=== PATIENT | female | born 1930 | race Caucasian/White ===

== ENCOUNTER 2016-07-02 08:45 | Day surgery (SDC) | payer MEDICARE ==
[2016-07-02 10:03] LABS: HEMOGLOBIN 11.6 g/dL (12.0-15.5); HGB HCT DIFFERENCE -0.2; MEAN CORPUSCULAR HEMOGLOBIN 31.3 pg (27.0-33.4); MEAN CORPUSCULAR HGB CONC 33.1 g/dL (32.0-36.0); MEAN CORPUSCULAR VOLUME 95 fl (80-97); RED CELL DISTRIBUTION WIDTH 14.2 % (11.5-14.0); WHITE BLOOD COUNT 5.7 10^3/uL (4.0-10.5)
[2016-07-02 10:11] LABS: PARTIAL THROMBOPLASTIN TIME 43.7 SEC (23.5-35.8)
[2016-07-02 10:15] LABS: BLOOD UREA NITROGEN 109 mg/dL (7-20); CALCIUM 9.5 mg/dL (8.4-10.2); CARBON DIOXIDE 20 mmol/L (22-30); CHLORIDE 98 mmol/L (98-107); CREATININE RESULT 7.04 mg/dL (0.52-1.25); GLUCOSE 102 mg/dL (75-110); SODIUM 140.8 mmol/L (137-145)
[2016-07-02 10:23] LABS: ANION GAP 23 (5-19)
[2016-07-02] MEDS ORDERED: LIDOCAINE 0.5% INJ-PF (5 MG/ML) 50 ML SDV ONE (10:40)
[2016-07-02] MEDS ORDERED: MIDAZOLAM 2 MG/2 ML INJ ONE (10:45)
[2016-07-02] MEDS ORDERED: HEPARIN SOD (PORCINE) 5,000 UNIT/ML 1 ML SYRINGE ONE (10:45)
[2016-07-02] MEDS ORDERED: FENTANYL CITRATE INJ/PF 100 MCG/2 ML AMPUL ONE (10:45)
--- NOTE | 2016-07-02 13:52 | PDOC DISCHARGE SUMMARY ---
Discharge Summary (SDC) - Discharge Final Diagnosis: #1 malfunctioning AV fistula left forearm #2 end-stage renal disease on hemodialysis. #3 atrial fibrillation, chronic. #4 COPD. #5 hypertension.. Date of Surgery: 07/02/16 Discharge Date: 07/02/16 Condition: Poor Forms: ASU Anesthesia D/C Instruction, Discharge POC-Surgical Service Treatment or Instructions: #1 discharge patient home after achieving ASU criteria. #2 continue medications per medication reconciliation sheet. #3 follow-up in office by appointment in about 1 week, call for appointment. #4 dressing to be left on until dialysis. #5 continue scheduled hemodialysis. h. #6 may shower starting in 48 hours. Referrals: ELISA NEAL MD [ACTIVE STAFF] - 07/09/16 1:15 pm Respiratory Treatments at Home: Deep Breathing/Coughing Discharge Activity: Activity As Tolerated, Balance Activity w/Rest, No Driving, No Lifting/Push/Pulling, Slowly Increase Activity, Walk Frequently Home Care Assistance: Provided by Family Activities Provided by Home Health Agency: ADL's Adaptive Devices on Discharge: Rolling Walker Report the Following to Your Physician Immediately: Shortness of Breath, Nausea , Vomiting, Increase in Pain, Fever over 101 Degrees, Unusual Bleeding, Redness , Swelling, Warmth, Increased Soreness, Large Clots, Numbness, Tingling Sensation, Weight Gain 3-5lbs a week, Wheezing
[2016-07-02 14:06] VITALS: BP 131/52
--- NOTE | 2016-07-10 13:37 | Operative Report ---
Operative Report DATE OF SURGERY: 07/02/16 PREOPERATIVE DIAGNOSIS: #1 malfunctioning AV fistula, cephalic to radial, left arm. #2 end-stage renal disease on hemodialysis. #3 multiple comorbidities. POSTOPERATIVE DIAGNOSIS: #1 malfunctioning AV fistula, cephalic to radial, left arm. #2 end-stage renal disease on hemodialysis. #3 multiple comorbidities. OPERATION: #1 ultrasound directed access into the left forearm AV fistula. #2 angioplasty. #3 angiogram and interpretation. SURGEON: ELISA [place] [employer] OPERATOR: none ANESTHESIA: Moderate Sedation TISSUE REMOVED OR ALTERED: Not applicable. COMPLICATIONS: None ESTIMATED BLOOD LOSS: 2 mL. INTRAOPERATIVE FINDINGS: Upper well-founded left forearm transposed cephalic vein to radial artery fistula. Relatively firm in the first 6 cm. A large hematoma with bruising noted in the upper forearm. Cephalad to that the cephalic vein for about 4 cm around the elbow is dilated but soft with a mild bruit. The graphically there was a stenosis noted about 70% of the lumen at about 11 cm. This was almost completely resolved by angioplasty. A relatively narrow area of fistula for access 6 cm initially and then the area of the elbow is available for use. The hope is to retrieve the area with hematoma as a hematoma resolves. PROCEDURE: PROCEDURE: After verifying the procedure and having obtained informed consent, the patient's left arm was prepared with Chlorhexidine and draped out with sterile linen. Local anesthesia infiltrated. Percutaneous access into the fistula ,[ antegrade], obtained about [2 cm] from the arteriovenous anastomosis using a micro puncture needle followed by micro puncture wire and then a micro puncture catheter. Angiogram demonstrated the aforementioned findings. Angioplasty was elected. A 0.035 [place] wire was inserted, and over this, a 7 Italian short introducer was placed, this was followed by a [7-mm ] angioplasty balloon . Angioplasty was serially done from the upper fistula down to the introducer. Inflating up to 14 atmospheres for a minute at a time.]. Completion angiogram demonstrated improved flow and appearance of fistula. The instrumentation was now withdrawn over pressure for 10 minutes. Dressings applied, procedure concluded. DICTATING PHYSICIAN: ELISA NEAL M.D. cc: ELISA NEAL M.D. ([id number]) >>
== END 2016-07-02 14:00 | disposition home or self-care (01) ==
LOC: CCL 08:45
PROVIDERS: ATTEND Surgery
PROC: 057F3DZ Dilation of Left Cephalic Vein with Intraluminal Device, Percutaneous Approach (ICD-10-PCS; principal; 2016-07-02)
DX: T82.858A Stenosis of other vascular prosthetic devices, implants and grafts, initial encounter (principal); Y83.2 Surgical operation with anastomosis, bypass or graft as the cause of abnormal reaction of the patient, or of later complication, without mention of misadventure at the time of the procedure; I12.0 Hypertensive chronic kidney disease with stage 5 chronic kidney disease or end stage renal disease; N18.6 End stage renal disease; Z99.2 Dependence on renal dialysis; J44.9 Chronic obstructive pulmonary disease, unspecified; I48.2 Chronic atrial fibrillation; Z79.01 Long term (current) use of anticoagulants
CPT/HCPCS: 36415; 85027; 85610; 85730; 80048; 36902; 76937; 71010; C1752; C1725; Q9967; C1769; J2250; J3010; J3490; J1644; 36901

== ENCOUNTER → 2016-11-24 | Outpatient (CLI) | payer MEDICARE ==
--- NOTE | 2016-11-25 00:20 | EKG REPORT ---
SEVERITY:- ABNORMAL ECG - ATRIAL FIBRILLATION : Confirmed by: Vita Gaines 25-Nov-2016 00:19:14
== END ==
LOC: OD 09:36
PROVIDERS: ATTEND Internal Medicine Nephrology
DX: R00.1 Bradycardia, unspecified (principal)
CPT/HCPCS: 93005; 93010

== ENCOUNTER 2016-12-15 08:44 | Day surgery (SDC) | payer MEDICARE ==
[2016-12-15] MEDS ORDERED: HEPARIN SOD (PORCINE) 1,000 UNIT/ML 10 ML VIAL ONE (09:45)
[2016-12-15] MEDS ORDERED: LIDOCAINE 0.5% INJ-PF (5 MG/ML) 50 ML SDV ONE (09:46)
--- NOTE | 2016-12-15 09:54 | PDOC H&P ---
General Chief Complaint: Patient arteriovenous fistula has been found to be malfunctional. - Current Medications/Allergies Home Medications: Amlodipine Besylate 5 mg PO Q12H PRN 07/17/15 Levothyroxine Sodium 50 mcg PO DAILY 07/17/15 Omeprazole 20 mg PO BID 07/17/15 Warfarin Sodium 5 mg PO DAILY 07/17/15 Acetaminophen [Tylenol Arthritis 650 mg Tablet] 650 mg PO QPM PRN 09/14/15 Fluticasone Propionate [Flonase Nasal [place] 50 Mcg/[place] 16 gm] 1 spray NASL Q12 09/14/15 Hydralazine HCl 25 mg PO BID PRN 09/14/15 B Complex & C No.20/Folic Acid [Renal Caps Softgel] mg PO DAILY 12/15/16 Benzonatate 100 mg PO PRN PRN 12/15/16 Ciprofloxacin HCl [Cipro] 250 mg PO DAILY 12/15/16 Guaifenesin [Mucinex] 1,200 mg PO DAILY 12/15/16 Magnesium 400 mg PO BID 12/15/16 Allergies/Adverse Reactions: pravastatin [Pravastatin] Allergy (Verified 12/15/16 09:22) NSAIDS (Non-Steroidal Anti-Inflamma [Nsaids] Adverse Reaction (Verified 09:22) Past Medical History Cardiac Medical History: Reports: Atrial Fibrillation, Congestive Heart Failure , Hyperlipidema, Hypertension Denies: Coronary Artery Disease, Myocardial Infarction Pulmonary Medical History: Reports: Bronchitis, Pneumonia - hx of, Respiratory Failure, Sleep Apnea Denies: Asthma, Chronic Obstructive Pulmonary Disease (COPD), Tuberculosis Neurological Medical History: Denies: Seizures Endocrine Medical History: Reports: Hypothyroidism GI Medical History: Reports: Gastroesophageal Reflux Disease Musculoskeltal Medical History: Reports: Arthritis Psychiatric Medical History: Denies: Dementia, Depression Hematology: Denies: Anemia Past Surgical History Past Surgical History: Reports: Hysterectomy Denies: Pacemaker Family History Family History: Hypertension Parental Family History Reviewed: No Children Family History Reviewed: No Sibling(s) Family History Reviewed.: No Social History Smoking Status: Former Smoker Frequency of Alcohol Use: None Hx Recreational Drug Use: No Drugs: None Hx Prescription Drug Abuse: No Physical Exam Vital Signs: Temp Pulse Resp BP Pulse Ox 97.6 F 60 16 122/46 L 95 12/15/16 09:08 12/15/16 09:08 12/15/16 09:08 12/15/16 09:08 12/15/16 09:08 Intake & Output 12/14/16 12/15/16 12/16/16 06:59 06:59 06:59 Weight 79.38 kg Additional comments: Constitutional: Well-developed well-nourished lady, mildly increased body mass in. No apparent acute distress. Eyes: Mucous membranes pink and moist, pupils equal and reactive to light. Conjunctiva normal. ENT: Hearing grossly normal. External pinna normal to inspection. Teeth intact. Tongue normal to inspection. Cardiac: Heart sounds 1 and 2 normal Respiratory breath sounds are present bilaterally, normal. Normal respiratory effort. Skin: Ulceration slight irritation, chronic in the left index finger and forearm. Psychiatric: Judgment, memory, insight seem normal. Mood is pleasant and appropriate. Extremities: Upper extremities show normal range of movement. Pulses present noted to the radial arteries. Capillary refill normal. No cyanosis noted. No muscle wasting noted. Functional left forearm AV fistula. Irritation and ulceration is noted. Distant from fistula. Impression/Plan Impression: 1 malfunctioning AV fistula left radiocephalic. 2. End-stage renal disease on hemodialysis. 3. COPD. 4. Atrial fibrillation. 5. Hypertension. Plan: Admitted for AV fistula angiogram and possible angioplasty. The goal is prolonged fistula use
[2016-12-15 10:25] LABS: HEMATOCRIT 35.3 % (36.0-47.0); HEMOGLOBIN 11.7 g/dL (12.0-15.5); HGB HCT DIFFERENCE -0.2; MEAN CORPUSCULAR HEMOGLOBIN 31.3 pg (27.0-33.4); MEAN CORPUSCULAR HGB CONC 33.1 g/dL (32.0-36.0); MEAN CORPUSCULAR VOLUME 95 fl (80-97); RED BLOOD COUNT 3.72 10^6/uL (3.72-5.28); RED CELL DISTRIBUTION WIDTH 14.1 % (11.5-14.0); WHITE BLOOD COUNT 7.3 10^3/uL (4.0-10.5)
[2016-12-15 10:31] LABS: PROTHROMBIN TIME 22.5 SEC (11.4-15.4)
[2016-12-15 10:35] LABS: PARTIAL THROMBOPLASTIN TIME 37.8 SEC (23.5-35.8)
[2016-12-15 10:45] LABS: ANION GAP 18 (5-19); BLOOD UREA NITROGEN 72 mg/dL (7-20); CALCIUM 9.5 mg/dL (8.4-10.2); CARBON DIOXIDE 24 mmol/L (22-30); CHLORIDE 94 mmol/L (98-107); CREATININE RESULT 6.44 mg/dL (0.52-1.25); GLUCOSE 102 mg/dL (75-110); POTASSIUM 5.5 mmol/L (3.6-5.0); SODIUM 136.2 mmol/L (137-145)
[2016-12-15] MEDS ORDERED: MIDAZOLAM 2 MG/2 ML INJ ONE (11:18)
[2016-12-15] MEDS ORDERED: PROPOFOL INJ 200 MG/20 ML VIAL IV ONE (11:19)
[2016-12-15] MEDS ORDERED: EPINEPHRINE INJ/PF 1 MG/1 ML AMPULE ONE (12:05)
[2016-12-15] MEDS ORDERED: EPHEDRINE SULFATE INJ 50 MG/1 ML AMPULE ONE (12:07)
--- NOTE | 2016-12-15 12:20 | PDOC DISCHARGE SUMMARY ---
Discharge Summary (SDC) - Discharge Final Diagnosis: #1 malfunctioning arteriovenous fistula, left radiocephalic. 2. End-stage renal disease on hemodialysis. 3. COPD. 4. Atrial fibrillation. 5. Hypertension. Date of Surgery: 12/15/16 Discharge Date: 12/15/16 Condition: Fair Treatment or Instructions: Discharge home [after recovery per ASU criteria]. Diet , [renal],as tolerated, when fully awake advance as tolerated. Activities within moderation encouraged. Follow up in my office by appointment in about [1 week. Call for appointment. Leave wounds [covered], [keep clean and dry, until Hemodialysis Hold of on school/work [until evaluation in office]. May shower [in 48 hrs], [try to keep operated area as dry as possible]. Continue medications per medication reconciliation. Discharge Diet: Other (Comments) - Renal Respiratory Treatments at Home: Deep Breathing/Coughing Discharge Activity: Activity As Tolerated Report the Following to Your Physician Immediately: Unusual Bleeding
--- NOTE | 2016-12-15 12:25 | Operative Report ---
Operative Report DATE OF SURGERY: 12/15/16 PREOPERATIVE DIAGNOSIS: #1 malfunctioning arteriovenous fistula, left radiocephalic. 2. End-stage renal disease on hemodialysis. 3. COPD. 4. Atrial fibrillation. 5. Hypertension. POSTOPERATIVE DIAGNOSIS: #1 malfunctioning arteriovenous fistula, left radiocephalic. 2. End-stage renal disease on hemodialysis. 3. COPD. 4. Atrial fibrillation. 5. Hypertension. OPERATION: 1. Needle access into arteriovenous fistula. 2. Angioplasty. 3. Angiogram interpretation. SURGEON: ELISA [place] [employer] TECHNICIAN: None ANESTHESIA: LMAC TISSUE REMOVED OR ALTERED: Not applicable COMPLICATIONS: None ESTIMATED BLOOD LOSS: 2 mL. INTRAOPERATIVE FINDINGS: Of a established left forearm arteriovenous fistula. The anastomosis somewhat high at about 5 cm from the wrist. Able to get into the distal limb of the radial artery, not into the proximal. Good flow noted in the distal radial artery. Stenosis appreciated in the first 3 cm. Estimated to be about 60% of the adjacent lumen. Successfully dilated up to 4 mm improved fistula function seems evident in the briskness of the flow through the fistula. The outflow is robust through both the cephalic and brachial systems. PROCEDURE: PROCEDURE: After verifying the procedure and having obtained informed consent, the patient's left arm and forearm were prepared with Chlorhexidine and draped out with sterile linen. Local anesthesia infiltrated. Percutaneous access into the fistula ,[retrograde], obtained about [20 cm] from the arteriovenous anastomosis using a micro puncture needle followed by micro puncture wire and then a micro puncture catheter. This was done on ultrasound guidance using real-time access into the vein. Ultrasound was also used to size the vein. Angiogram demonstrated the aforementioned findings. Angioplasty was elected. A 0.035 [place] wire was inserted, and over this, a 6 Turkish short introducer was placed, this was followed by a [place] catheter. Access into the [place] radial artery obtained using a [place] catheter and a pocket device. Angiogram is noted. A [4] angioplasty balloon . Angioplasty was now done at the distal radial artery just before the anastomosis and over the anastomotic and perianastomotic segment. This was done very carefully and in the up to 10 anirudh sustained for 2 minutes. Angiogram demonstrated successful outcome. Completion angiogram demonstrated [satisfactory result]. The instrumentation was now withdrawn pressure for 3 minutes. Dressings applied, procedure concluded. DICTATING PHYSICIAN: ELISA NEAL M.D. cc: ELISA NEAL M.D. ([id number]) >>
[2016-12-15] MEDS ORDERED: PHENYLEPHRINE HCL INJ/PF 10 MG/1 ML SDV ONE (13:27)
[2016-12-15] MEDS ORDERED: GLYCOPYRROLATE INJ 0.4 MG/2 ML VIAL ONE (13:27)
[2016-12-15] MEDS ORDERED: ONDANSETRON HCL INJ/PF 4 MG/2 ML SDV ONE (13:27)
[2016-12-15] MEDS ORDERED: METOCLOPRAMIDE HCL INJ/PF 10 MG/2 ML SDV ONE (13:27)
--- NOTE | 2016-12-15 14:46 | RADIOLOGY REPORT (SQ) ---
EXAM DESCRIPTION: NO CHG FLUORO; HUMERUS LEFT COMPLETED DATE/TIME: 12/15/2016 2:37 pm REASON FOR STUDY: T82.858A T82.858A STENOSIS OF OTHER VASCULAR PROSTH DEV/GRFT, INIT Z79.01 LONG T ERM (CURRENT) USE OF ANTICOAGULANTS COMPARISON: None. FLUOROSCOPY TIME: 2.4 minutes 8 images saved to PACS. TECHNIQUE: Intra-operative images acquired during surgical procedure to evaluate progress. NUMBER OF IMAGES: 8 LIMITATIONS: None. FINDINGS: Angioplasty intervention upper extremity dialysis graft. IMPRESSION: IMAGE(S) OBTAINED DURING PROCEDURE. COMMENT: Quality ID [id number]: Final reports for procedures using fluoroscopy that document radiation exp osure indices, or exposure time and number of fluorographic images (if radiation exposure indices are not available) Please consult full operative report of the attending physician for description of the procedure. TECHNICAL DOCUMENTATION: JOB ID: [id number] [employer]- All Rights Reserved
--- NOTE | 2016-12-15 14:46 | RADIOLOGY REPORT (SQ) ---
EXAM DESCRIPTION: NO CHG FLUORO; HUMERUS LEFT COMPLETED DATE/TIME: 12/15/2016 2:37 pm REASON FOR STUDY: T82.858A T82.858A STENOSIS OF OTHER VASCULAR PROSTH DEV/GRFT, INIT Z79.01 LONG T ERM (CURRENT) USE OF ANTICOAGULANTS COMPARISON: None. FLUOROSCOPY TIME: 2.4 minutes 8 images saved to PACS. TECHNIQUE: Intra-operative images acquired during surgical procedure to evaluate progress. NUMBER OF IMAGES: 8 LIMITATIONS: None. FINDINGS: Angioplasty intervention upper extremity dialysis graft. IMPRESSION: IMAGE(S) OBTAINED DURING PROCEDURE. COMMENT: Quality ID [id number]: Final reports for procedures using fluoroscopy that document radiation exp osure indices, or exposure time and number of fluorographic images (if radiation exposure indices are not available) Please consult full operative report of the attending physician for description of the procedure. TECHNICAL DOCUMENTATION: JOB ID: [id number] [employer]- All Rights Reserved
[2016-12-15 15:19] VITALS: BP 132/56
== END 2016-12-15 14:25 | disposition home or self-care (01) ==
LOC: OROUT 08:44
PROVIDERS: ATTEND Surgery
PROC: 057F3DZ Dilation of Left Cephalic Vein with Intraluminal Device, Percutaneous Approach (ICD-10-PCS; principal; 2016-12-15 11:15)
DX: T82.858A Stenosis of other vascular prosthetic devices, implants and grafts, initial encounter (principal); Y83.2 Surgical operation with anastomosis, bypass or graft as the cause of abnormal reaction of the patient, or of later complication, without mention of misadventure at the time of the procedure; I13.2 Hypertensive heart and chronic kidney disease with heart failure and with stage 5 chronic kidney disease, or end stage renal disease; I50.9 Heart failure, unspecified; N18.6 End stage renal disease; Z99.2 Dependence on renal dialysis; I48.91 Unspecified atrial fibrillation; J44.9 Chronic obstructive pulmonary disease, unspecified; Z79.01 Long term (current) use of anticoagulants; Z79.899 Other long term (current) drug therapy; Z88.8 Allergy status to other drugs, medicaments and biological substances; Z88.6 Allergy status to analgesic agent; E78.5 Hyperlipidemia, unspecified; G47.30 Sleep apnea, unspecified; Z87.01 Personal history of pneumonia (recurrent); E03.9 Hypothyroidism, unspecified; M19.90 Unspecified osteoarthritis, unspecified site; K21.9 Gastro-esophageal reflux disease without esophagitis; Z87.891 Personal history of nicotine dependence
CPT/HCPCS: 36415; 85027; 85610; 85730; 80048; 73060; 36902; C1752; C1887; Q9967; C1769; J2250; J1644 ×2; J3490; J2765; J2370; J2405; J2704; 01844; J0171

== ENCOUNTER 2018-04-05 16:07 | Observation (INO) | payer MEDICARE ==
[2018-04-05] MEDS ORDERED: SUCRALFATE 1 GM TABLET PO ONE (17:28)
[2018-04-05] MEDS ORDERED: FAMOTIDINE 20 MG TABLET PO ONE (17:28)
[2018-04-05] MEDS ORDERED: MAG HYDROX/AL HYDROX/SIMETH SUSP 30 ML UDCUP PO ONE (17:28)
--- NOTE | 2018-04-05 17:33 | ER Document Report ---
ED General - General Chief Complaint: Breathing Difficulty Stated Complaint: RESPIRATORY DISTRESS Time Seen by Provider: 04/05/18 16:57 Mode of Arrival: Medic Information source: Patient TRAVEL OUTSIDE OF THE [place] IN LAST 30 DAYS: No - HPI Notes: Patient is a 88-year-old female history of atrial fibrillation, COPD, CHF, hypertension, dialysis every Thursday//Thursday, home CPAP, ex-smoker who presents to the emergency department with report that she had a echocardiogram done earlier today with Dr. Barnes and she was leaning on her side and in uncomfortable positions. The patient reports increased belching she has had for the last few days related to cutting back on her omeprazole as she was running out. She reports that today at 1300 she got up and noticed some chest discomfort and some transient dyspnea that occurred with a slight radiation to the right side of the neck. The patient reports no nausea or vomiting, but she does report some relief with belching. The patient denies any fever or chills or cough or congestion or constipation or diarrhea or dysuria. Patient was given nitro in route by EMS and aspirin. She denied any significant change with the nitroglycerin. Patient's cyber ops planner is Dr. Ferreira. - Related Data Allergies/Adverse Reactions: pravastatin [Pravastatin] Allergy (Verified 04/05/18 16:27) NSAIDS (Non-Steroidal Anti-Inflamma [Nsaids] Adverse Reaction (Verified 16:27) Past Medical History - General Information source: Patient - Social History Smoking Status: Never Smoker Frequency of alcohol use: Rare Drug Abuse: None Lives with: Family Family History: Hypertension Patient has suicidal ideation: No Patient has homicidal ideation: No - Past Medical History Cardiac Medical History: Reports: Hx Atrial Fibrillation, Hx Congestive Heart Failure, Hx Hypercholesterolemia, Hx Hypertension Denies: Hx Coronary Artery Disease, Hx Heart Attack Pulmonary Medical History: Reports: Hx Bronchitis, Hx Pneumonia - hx of, Hx Respiratory Failure, Hx Sleep Apnea Denies: Hx Asthma, Hx COPD, Hx Tuberculosis Neurological Medical History: Denies: Hx Cerebrovascular Accident, Hx Seizures Endocrine Medical History: Reports: Hx Hypothyroidism Renal/ Medical History: Reports: Hx End Stage Renal Disease, Hx Renal Insufficiency. Denies: Hx Peritoneal Dialysis GI Medical History: Reports: Hx Gastroesophageal Reflux Disease Musculoskeletal Medical History: Reports Hx Arthritis, Denies Hx Multiple Sclerosis Psychiatric Medical History: Denies: Hx Dementia, Hx Depression Past Surgical History: Reports: Hx Hysterectomy. Denies: Hx Pacemaker - Immunizations Hx Diphtheria, Pertussis, Tetanus Vaccination: Yes Hx Pneumococcal Vaccination: 08/03/15 Review of Systems - Review of Systems -: Yes All other systems reviewed and negative Physical Exam - Vital signs Vitals: Temp Pulse Resp BP Pulse Ox 97.4 F 74 20 136/52 H 90 L 04/05/18 16:36 04/05/18 16:36 04/05/18 16:36 04/05/18 16:36 04/05/18 16:36 - Notes Notes: PHYSICAL EXAMINATION: GENERAL: Well-appearing, well-nourished and in no acute distress. HEAD: Atraumatic, normocephalic. EYES: Pupils equal round and reactive to light, extraocular movements intact, conjunctiva are normal. ENT: Nares patent, oropharynx clear without exudates. Moist mucous membranes. NECK: Normal range of motion, supple without lymphadenopathy. No gross JVD LUNGS: Breath sounds coarse to auscultation bilaterally and equal. No wheezes rales or rhonchi. HEART: Regular rate with murmur 1/6 and irregular rhythm consistent with history of atrial fibrillation. ABDOMEN: Soft, nontender, nondistended abdomen. No guarding, no rebound. No masses appreciated. Female : deferred Musculoskeletal: Normal range of motion. No cyanosis. 1+ bilateral lower extremity edema. NEUROLOGICAL: Cranial nerves grossly intact. Normal speech, normal gait. Normal sensory, motor exams PSYCH: Normal mood, normal affect. SKIN: Warm, Dry, normal turgor, no rashes or lesions noted. Patient has a AV shunt in the left forearm. She has a recent surgical scar with sutures in place from a skin cancer removed adjacent to the AV shunt. There is no evidence for infection nor erythema. Good palpable pulsation on the shunt. Distally, neurovascularly intact. Course - Re-evaluation Re-evalutation: 04/05/18 22:24 Patient remained in atrial fibrillation with stable vital signs and a stable pulse rate. Patient was given Carafate, Maalox, and Pepcid with complete relief of her belching and sensation of chest pain. Chest x-ray showed no gross CHF. Patient's lab studies were consistent with chronic renal failure without any acute worsening. Initial troponin was 0.033 with repeat troponin 3 hours later of 0.55. Patient was appropriately anticoagulated on Coumadin with INR of 2.1. 04/05/18 22:26 Discussion was undertaken with the patient and her family regarding the elevated troponin and the possibility of her having an acute cardiac event. Discussion was undertaken with Dr. Maldonado who agreed to see the patient further for possible admission. 04/05/18 22:26 - Vital Signs Vital signs: Temp Pulse Resp BP Pulse Ox 97.4 F 74 18 134/50 H 92 04/05/18 16:36 04/05/18 16:36 04/05/18 19:01 04/05/18 19:01 04/05/18 19:01 - Laboratory Result Diagrams: 04/05/18 16:00 04/05/18 16:00 Laboratory results interpreted by me: 04/05/18 04/05/18 04/05/18 16:00 16:00 16:00 RBC 3.31 L Hgb 10.4 L Hct 31.3 L Seg Neutrophils % 79.6 H Lymphocytes % 12.4 L PT 25.1 H Carbon Dioxide 20 L Anion Gap 23 H BUN 50 H Creatinine 6.98 H Est GFR ( Amer) 7 L Est GFR (Non-Af Amer) 6 L Calcium 10.5 H Total Bilirubin 1.5 H Direct Bilirubin 1.4 H - EKG Interpretation by Me Additional EKG results interpreted by me: 04/05/18 17:32 EKG as interpreted by me showed atrial fibrillation with controlled ventricular response rate of 68. There was one PVC noted in addition. There was no gross evidence for acute [place] or ischemia appreciated. There was no significant change as compared to previous EKG from 11/24/16. Critical Care Note - Critical Care Note Total time excluding time spent on procedures (mins): 43 Discharge - Discharge Clinical Impression: Elevated troponin Chest pain Qualifiers: Chest pain type: other chest pain Qualified Code(s): R07.89 - Other chest pain Renal failure, chronic Qualifiers: Chronic kidney disease stage: stage 4 (severe) Qualified Code(s): N18.4 - Chronic kidney disease, stage 4 (severe) Atrial fibrillation Qualifiers: Atrial fibrillation type: chronic Qualified Code(s): I48.2 - Chronic atrial fibrillation Condition: Stable Disposition: ADMITTED INPATIENT Admitting Provider: Hospitalist
--- NOTE | 2018-04-05 17:38 | RADIOLOGY REPORT (SQ) ---
EXAM DESCRIPTION: CHEST SINGLE VIEW COMPLETED DATE/TIME: 04/05/2018 5:09 pm REASON FOR STUDY: dyspnea COMPARISON: 12/31/2015. EXAM PARAMETERS: NUMBER OF VIEWS: One view. TECHNIQUE: Single frontal radiographic view of the chest acquired. RADIATION DOSE: NA LIMITATIONS: None. FINDINGS: LUNGS AND PLEURA: Stable mild chronic scarring. No focal infiltrates, masses or pneumotho rax. No pleural effusion. MEDIASTINUM AND HILAR STRUCTURES: No masses. Contour normal. HEART AND VASCULAR STRUCTURES: Heart upper limits of normal in size. Normal vasculature. BONES: No acute findings. Degenerative changes in both shoulders, right greater than left. HARDWARE: None in the chest. OTHER: No other significant finding. IMPRESSION: STABLE MILD CHRONIC SCARRING. NO ACUTE RADIOGRAPHIC FINDING IN THE CHEST. TECHNICAL DOCUMENTATION: JOB ID: [id number] [employer]- All Rights Reserved Reading location - IP/workstation name: [email or web address]
[2018-04-05 18:05] LABS: INTERNATIONAL RATION (INR) 2.16; PROTHROMBIN TIME 25.1 SEC (11.4-15.4)
[2018-04-05 18:06] LABS: ABSOLUTE BASOPHILS # (AUTO) 0.1 10^3/uL (0.0-0.2); ABSOLUTE EOSINOPHILS # (AUTO) 0.2 10^3/uL (0.0-0.6); ABSOLUTE MONOCYTES (AUTO) 0.4 10^3/uL (0.1-1.4); ABSOLUTE NEUT (AUTO) 6.5 10^3/uL (1.7-8.2); BASOPHILS % (AUTO) 0.8 % (0-2); EOSINOPHILS % (AUTO) 2.1 % (0-6); HEMATOCRIT 31.3 % (36.0-47.0); HEMOGLOBIN 10.4 g/dL (12.0-15.5); LYMPHOCYTES % (AUTO) 12.4 % (13-45); MEAN CORPUSCULAR HEMOGLOBIN 31.5 pg (27.0-33.4); MEAN CORPUSCULAR HGB CONC 33.4 g/dL (32.0-36.0); MEAN CORPUSCULAR VOLUME 95 fl (80-97); MONOCYTES % (AUTO) 5.1 % (3-13); PLATELET COUNT 233 10^3/uL (150-450); RED BLOOD COUNT 3.31 10^6/uL (3.72-5.28); RED CELL DISTRIBUTION WIDTH 13.9 % (11.5-14.0); SEGMENTED NEUTROPHILS % (AUTO) 79.6 % (42-78); TOTAL CELLS COUNTED % (AUTO) 100 %; WHITE BLOOD COUNT 8.2 10^3/uL (4.0-10.5)
[2018-04-05 18:12] LABS: ALANINE AMINOTRANSFERASE 22 U/L (9-52); ALBUMIN 4.8 g/dL (3.5-5.0); ALKALINE PHOSPHATASE 114 U/L (38-126); ASPARTATE AMINO TRANSFERASE 28 U/L (14-36); BILIRUBIN,DIRECT 1.4 mg/dL (0.0-0.4); BILIRUBIN,TOTAL 1.5 mg/dL (0.2-1.3); BLOOD UREA NITROGEN 50 mg/dL (7-20); CALCIUM 10.5 mg/dL (8.4-10.2); GLUCOSE 107 mg/dL (75-110); POTASSIUM 4.6 mmol/L (3.6-5.0)
[2018-04-05 18:17] LABS: CARBON DIOXIDE 20 mmol/L (22-30); CHLORIDE 99 mmol/L (98-107); SODIUM 141.4 mmol/L (137-145)
[2018-04-05 18:19] LABS: ANION GAP 23 (5-19)
[2018-04-05] MEDS ORDERED: PROMETHAZINE HCL 25 MG TABLET PO PRN (22:38)
[2018-04-05] MEDS ORDERED: ACETAMINOPHEN 325 MG TABLET PO PRN ×2 (22:38→23:00)
[2018-04-05] MEDS ORDERED: PROMETHAZINE HCL INJ 25 MG/1 ML VIAL IV PRN (22:38)
[2018-04-05] MEDS ORDERED: (PENDING PHARMACY ID) (Acetaminophen [Tylenol Arthritis 650 Mg Tablet] 650 MG) PO PRN (22:45)
[2018-04-05] MEDS ORDERED: PANTOPRAZOLE SODIUM 40 MG VIAL IV ONE (22:45)
[2018-04-05] MEDS ORDERED: BENZONATATE 100 MG CAPSULE PO PRN (22:45)
[2018-04-05] MEDS ORDERED: AMLODIPINE BESYLATE 5 MG TABLET PO PRN (22:45)
[2018-04-05] MEDS ORDERED: WARFARIN SODIUM 5 MG TABLET PO ONE (23:05)
[2018-04-05] MEDS ORDERED: NALOXONE HCL INJ/PF 0.4 MG/1 ML SDV IV ONE (23:45)
[2018-04-06] MEDS ORDERED: WARFARIN SODIUM 3 MG TABLET PO ONE
--- NOTE | 2018-04-06 00:15 | PDOC H&P ---
History of Present Illness Admission Date/PCP: 04/05/18 22:56 MONO HINOJOSA-Ian Patient complains of: GI symptoms History of Present Illness: BELIA CHAVEZ is a 88 year old female history of atrial fibrillation, COPD, CHF , hypertension, dialysis every Thursday//Thursday, home CPAP, ex-smoker who presents to the emergency department with report that she had a echocardiogram done earlier today with Dr. Barnes and she was leaning on her side and in uncomfortable positions. Went home and she started feeling shaky when she got out of her car at home, felt more short of breath than her usual, she sat on the porch, got up to the house and was continuing shaking, diaphoretic, with chest discomfort in the center of her chest, burning in nature , radiated across her neck. Denies similar symptoms in the past. Denies fever but was feeling chills. Tells me that 1/2-week ago she stopped taking her omeprazole as she was feeling well, after that she has been having persistent very bad belching. In the emergency department has received famotidine, magnesium hydroxide and Carafate with totally resolve or her symptoms In the emergency department troponins were sent, first 1 0.033 and the repeated one at 0.551, patient does not have history of these elevation of troponins and was a concern, decided to keep the patient under observation today. Patient has chronic atrial fibrillation on anticoagulation with Coumadin with therapeutic INR. Last hemodialysis last Thursday, I spoke with Dr. Ferreira who is her emr trainer and will see her for hemodialysis tomorrow. Past Medical History Cardiac Medical History: Reports: Atrial Fibrillation, Congestive Heart Failure , Hyperlipidema, Hypertension Denies: Coronary Artery Disease, Myocardial Infarction Pulmonary Medical History: Reports: Bronchitis, Pneumonia - hx of, Respiratory Failure, Sleep Apnea Denies: Asthma, Chronic Obstructive Pulmonary Disease (COPD), Tuberculosis Neurological Medical History: Denies: Seizures Endocrine Medical History: Reports: Hypothyroidism Renal/ Medical History: Reports: End Stage Renal Disease GI Medical History: Reports: Gastroesophageal Reflux Disease Musculoskeltal Medical History: Reports: Arthritis Psychiatric Medical History: Denies: Dementia, Depression Hematology: Denies: Anemia Past Surgical History Past Surgical History: Reports: Hysterectomy Denies: Pacemaker Social History Lives with: Family Smoking Status: Never Smoker Frequency of Alcohol Use: None Hx Recreational Drug Use: No Drugs: None Hx Prescription Drug Abuse: No Family History Family History: Hypertension Parental Family History Reviewed: Yes - Remarkable for hypertension Children Family History Reviewed: NA Sibling(s) Family History Reviewed.: NA Medication/Allergy Home Medications: Amlodipine Besylate 5 mg PO Q12H PRN 07/17/15 Levothyroxine Sodium 50 mcg PO DAILY 07/17/15 Omeprazole 20 mg PO BID 07/17/15 Warfarin Sodium 5 mg PO DAILY 07/17/15 Furosemide [Lasix 40 mg Tablet] 40 mg PO BID #60 tablet 08/02/15 Acetaminophen [Tylenol Arthritis 650 mg Tablet] 650 mg PO QPM PRN 09/14/15 Fluticasone Propionate [Flonase Nasal [place] 50 Mcg/[place] 16 gm] 1 spray NASL Q12 09/14/15 Hydralazine HCl 25 mg PO BID PRN 09/14/15 B Complex W-C No.20/Folic Acid [Renal Caps Softgel] mg PO DAILY 12/15/16 Benzonatate 100 mg PO PRN PRN 12/15/16 Ciprofloxacin HCl [Cipro 250 mg Tablet] 250 mg PO DAILY 12/15/16 Guaifenesin [Mucinex] 1,200 mg PO DAILY 12/15/16 Magnesium 400 mg PO BID 12/15/16 Allergies/Adverse Reactions: pravastatin [Pravastatin] Allergy (Verified 04/05/18 16:27) NSAIDS (Non-Steroidal Anti-Inflamma [Nsaids] Adverse Reaction (Verified 16:27) Review of Systems Review of Systems: As outlined in the HPI, all others negative Physical Exam Vital Signs: Temp Pulse Resp BP Pulse Ox 97.4 F 74 18 134/50 H 92 04/05/18 16:36 04/05/18 16:36 04/05/18 19:01 04/05/18 19:01 04/05/18 19:01 Additional comments: General appearance: Well-developed, well-nourished, alert and cooperative, and appears to be in no acute distress Head: Normocephalic Eyes: PEERL, EOMI, vision is grossly intact. Ears: External auditory canal and tympanic membranes clear, hearing grossly intact. Nose: No nasal discharge. Throat: Oral cavity and pharynx normal. No inflammation, swelling, exudate or lesions. Neck: Neck supple, nontender without lymphadenopathy, masses or thyromegaly. Cardiac: Normal S1 and S2. No S3, S4, systolic murmur. Rhythm is irregular. There is moderate nonpitting peripheral edema, cyanosis or pallor. Extremities are warm and well perfused. Capillary refill is less than 2 seconds. No carotid bruits. Thorax: No reproducible tenderness to palpation. Lungs: With mild bibasilar rales, rhonchi, no wheezing or diminished breath sounds. Not using accessory muscles. Abdomen: Positive bowel sounds. Soft. Nondistended, nontender. No guarding or rebound. No masses. No hepatosplenomegaly Extremities: No significant deformity or joint abnormality. Peripheral pulses intact. Neurological: Cranial nerves II through XII grossly intact. Strength and sensation symmetric and intact throughout. Reflexes 2+ throughout. Skin: Skin normal color, texture and turgor with no lesions or eruptions, warm and dry. Left forearm AV fistula with some stitches in the upper area of the forearm secondary to skin biopsy. Psychiatric: The mental examination revealed the patient was oriented to person , place, and time. The patient was able to demonstrate good judgment on recent , without hallucinations, abnormal affect or abnormal behaviors. Results Laboratory Results: 04/05/18 04/05/18 04/05/18 16:00 16:00 16:00 WBC 8.2 RBC 3.31 L Hgb 10.4 L Hct 31.3 L MCV 95 MCH 31.5 MCHC 33.4 RDW 13.9 Plt Count 233 Seg Neutrophils % 79.6 H Lymphocytes % 12.4 L Monocytes % 5.1 Eosinophils % 2.1 Basophils % 0.8 Absolute Neutrophils 6.5 Absolute Lymphocytes 1.0 Absolute Monocytes 0.4 Absolute Eosinophils 0.2 Absolute Basophils 0.1 PT 25.1 H INR 2.16 Sodium 141.4 Potassium 4.6 Chloride 99 Carbon Dioxide 20 L Anion Gap 23 H BUN 50 H Creatinine 6.98 H Est GFR ( Amer) 7 L Est GFR (Non-Af Amer) 6 L Glucose 107 Calcium 10.5 H Magnesium 2.3 Total Bilirubin 1.5 H Direct Bilirubin 1.4 H AST 28 ALT 22 Alkaline Phosphatase 114 Troponin I Total Protein 8.0 Albumin 4.8 04/05/18 04/05/18 16:00 19:40 WBC RBC Hgb Hct MCV MCH MCHC RDW Plt Count Seg Neutrophils % Lymphocytes % Monocytes % Eosinophils % Basophils % Absolute Neutrophils Absolute Lymphocytes Absolute Monocytes Absolute Eosinophils Absolute Basophils PT INR Sodium Potassium Chloride Carbon Dioxide Anion Gap BUN Creatinine Est GFR ( Amer) Est GFR (Non-Af Amer) Glucose Calcium Magnesium Total Bilirubin Direct Bilirubin AST ALT Alkaline Phosphatase Troponin I 0.033 0.551 Total Protein Albumin EKG Comments: Atrial fibrillation with controlled ventricular response at rate of 68. Impressions: Chest X-Ray 04/05/18 16:59 IMPRESSION: STABLE MILD CHRONIC SCARRING. NO ACUTE RADIOGRAPHIC FINDING IN THE CHEST. Assessment & Plan - Diagnosis (1) Elevated troponin Is this a current diagnosis for this admission?: Yes Plan: Patient comes with possible GI symptomatology versus cardiac in origin. Troponins increased from 0.033-0.551. By the time I went to evaluate her she was asymptomatic. I will keep the patient on telemetry monitoring, cardiac markers x3. If continue trending up cardiology evaluation. (2) COPD (chronic obstructive pulmonary disease) Is this a current diagnosis for this admission?: Yes Plan: No acute respiratory symptoms. Continue with home bronchodilators. (3) Chronic atrial fibrillation Is this a current diagnosis for this admission?: Yes Plan: Chronic atrial fibrillation on anticoagulation with Coumadin, therapeutic INR at 2.16. Do not see that she is on any antiarrhythmic medication. (4) End stage renal disease on dialysis Is this a current diagnosis for this admission?: Yes Plan: Last hemodialysis last Thursday. Due for hemodialysis tomorrow, I spoke with Dr. Ferreira who will come and see the patient in consultation to do her hemodialysis. Patient has a left forearm AV fistula with good thrill. Patient is not on fluid overload. (5) HTN (hypertension) Qualifiers: Hypertension type: essential hypertension Qualified Code(s): I10 - Essential (primary) hypertension Is this a current diagnosis for this admission?: Yes Plan: Blood pressure is well controlled, continue with amlodipine and hydralazine. (6) GERD (gastroesophageal reflux disease) Qualifiers: Esophagitis presence: esophagitis presence not specified Qualified Code(s) : K21.9 - Gastro-esophageal reflux disease without esophagitis Is this a current diagnosis for this admission?: Yes Plan: Patient stopped taking her omeprazole as per her own decision as she was feeling fine, right after he started with belching that has been getting worse. After medications given in the emergency department symptoms has resolved. We are going to resume her p.o. omeprazole and I will give her 1 dose of 40 mg of Protonix IV. (7) JEWELL (obstructive sleep apnea) Is this a current diagnosis for this admission?: Yes Plan: On CPAP - Time Time Spent: 30 to 50 Minutes
[2018-04-06] MEDS ORDERED: WARFARIN SODIUM 3 MG TABLET ONE (00:32)
[2018-04-06] MEDS: LANSOPRAZOLE 15 MG TAB.RAP.DR PO SCH ×2 (05:56→17:05)
[2018-04-06] MEDS ORDERED: LEVOTHYROXINE SODIUM 0.025 MG TABLET PO SCH (06:00)
[2018-04-06 06:17] LABS: INTERNATIONAL RATION (INR) 2.52; PROTHROMBIN TIME 28.4 SEC (11.4-15.4)
--- NOTE | 2018-04-06 08:34 | EKG REPORT ---
SEVERITY:- ABNORMAL ECG - ATRIAL FIBRILLATION VENTRICULAR PREMATURE COMPLEX : Confirmed by: Vita Gaines 06-Apr-2018 08:33:01
[2018-04-06 09:05] LABS: ANION GAP 19 (5-19); BLOOD UREA NITROGEN 63 mg/dL (7-20); CALCIUM 9.6 mg/dL (8.4-10.2); CARBON DIOXIDE 21 mmol/L (22-30); CHLORIDE 101 mmol/L (98-107); GLUCOSE 98 mg/dL (75-110); POTASSIUM 4.9 mmol/L (3.6-5.0); SODIUM 140.8 mmol/L (137-145)
--- NOTE | 2018-04-06 09:10 | Physician Advisory Note ---
Physician Advisor ProgressNote .: Pursuant to the plan for Brad Willard, I have reviewed the medical record for this patient. Physician Advisor Statement: Nice documentation of chronic type Afib, ESRD on HD, JEWELL on CPAP. Please consider documenting, if you agree: 1. "NSTEMI, suspect of ___ wall & ___ artery" - vs "Acute ischemic heart dz", vs ... 2. "Chronic Hypoxemic Resp Failure, requires 2L O2 at baseline" 3. "Chronic diastolic CHF w/pulmonary hypertension and mild-mod Mitral & aortic regurg" (ECHO 2014) Status: [employer] Adv pt, approp'ly brought in as Obs initially given CP of unclear etiology. Now w/markedly worsening trop Is, not going to be stable enough for stress testing today. - If she is for transfer elsewhere for urgent cath today, she should remain Obs status. - If she is continuing to need hospital care & mgmt for AMI &/or other urgent clinical issue, but that will all be done here, then appropriate to change to Inpt status. Thanks! CK
[2018-04-06] MEDS ORDERED: FLUTICASONE NASAL SPRAY 50 MCG/SPRY 120 SPRAY/16 GM NASL SCH (10:00)
[2018-04-06] MEDS ORDERED: GUAIFENESIN 600 MG TABLET.SA PO SCH ×2 (10:00→11:00)
[2018-04-06] MEDS ORDERED: PROMETHAZINE HCL INJ 25 MG/1 ML VIAL IV PRN (10:06)
[2018-04-06] MEDS: HYDRALAZINE HCL 50 MG TABLET PO SCH ×2 (10:42→17:05)
[2018-04-06] MEDS: MAGNESIUM OXIDE 400 MG TABLET PO SCH ×2 (10:42→17:04)
[2018-04-06] MEDS: FUROSEMIDE 40 MG TABLET PO SCH ×2 (10:43→17:04)
--- NOTE | 2018-04-06 11:53 | PDOC CONSULTATION ---
Consultation Consult Date: 04/06/18 Attending physician:: CHUCKIE PATTON Consult reason:: Non-STEMI History of Present Illness Admission Date/PCP: 04/05/18 22:56 JUDY HINOJOSA Patient complains of: Chest pain and jaw pain History of Present Illness: BELIA CHAVEZ is a 88 year old female history of atrial fibrillation, COPD, CHF , hypertension, dialysis every Thursday//Thursday, home CPAP, ex-smoker who presents to the emergency department with report that she had a echocardiogram done earlier today with Dr. Barnes and she was leaning on her side and in uncomfortable positions. Went home and she started feeling shaky when she got out of her car at home, felt more short of breath than her usual, she sat on the porch, got up to the house and was continuing shaking, diaphoretic, with chest discomfort in the center of her chest, burning in nature , radiated across her neck. Denies similar symptoms in the past. Denies fever but was feeling chills. Tells me that 1/2-week ago she stopped taking her omeprazole as she was feeling well, after that she has been having persistent very bad belching. In the emergency department has received famotidine, magnesium hydroxide and Carafate with totally resolve or her symptoms In the emergency department troponins were sent, first 1 0.033 and the repeated one at 0.551, patient does not have history of these elevation of troponins and was a concern, decided to keep the patient under observation today. Patient has chronic atrial fibrillation on anticoagulation with Coumadin with therapeutic INR. Last hemodialysis last Thursday, I spoke with Dr. Ferreira who is her collar band creaser and will see her for hemodialysis tomorrow. This history obtained by the hospitalist was reviewed and confirmed with the patient. Results of 2D echo is not available. We will try to obtain these results from Dr. Barnes's office. An EKG repeated today shows no significant ST-T wave changes. EKG from yesterday also was relatively unremarkable. Past Medical History Cardiac Medical History: Reports: Atrial Fibrillation, Congestive Heart Failure , Hyperlipidema, Hypertension Denies: Coronary Artery Disease, Myocardial Infarction Pulmonary Medical History: Reports: Bronchitis, Pneumonia - hx of, Respiratory Failure, Sleep Apnea Denies: Asthma, Chronic Obstructive Pulmonary Disease (COPD), Tuberculosis Neurological Medical History: Denies: Seizures Endocrine Medical History: Reports: Hypothyroidism Renal/ Medical History: Reports: End Stage Renal Disease GI Medical History: Reports: Gastroesophageal Reflux Disease Musculoskeltal Medical History: Reports: Arthritis Psychiatric Medical History: Denies: Dementia, Depression Hematology: Denies: Anemia Past Surgical History Past Surgical History: Reports: Hysterectomy Denies: Pacemaker Social History Information Source: Patient Lives with: Family Smoking Status: Never Smoker Frequency of Alcohol Use: None Hx Recreational Drug Use: No Drugs: None Hx Prescription Drug Abuse: No - Advance Directive Resuscitation Status: Full Code Family History Family History: Hypertension Parental Family History Reviewed: Yes Children Family History Reviewed: Yes Sibling(s) Family History Reviewed.: Yes - Noncontributory at patient's age. Medication/Allergy Home Medications: Amlodipine Besylate 5 mg PO Q12 07/17/15 Levothyroxine Sodium 50 mcg PO Q6AM 07/17/15 Omeprazole 20 mg PO BID 07/17/15 Warfarin Sodium 5 mg PO WEFR@2200 07/17/15 Acetaminophen [Tylenol Arth[place] 650 mg Tablet] 1,300 mg PO Q12 09/14/15 Fluticasone Propionate [Flonase Nasal [place] 50 Mcg/[place] 16 gm] 1 spray NAREB DAILY 09/14/15 Hydralazine HCl 25 mg PO Q12 09/14/15 Guaifenesin [Mucinex] 1,200 mg PO Q12 12/15/16 B Complex W-C No.20/Folic Acid [Renal Caps Softgel] 1 mg PO DAILY 04/06/18 Loratadine [Claritin 10 mg Tablet] 10 mg PO DAILY 04/06/18 Magnesium Oxide [Mag-Ox 400 mg Tablet] 400 mg PO BID 04/06/18 Simethicone [Gas-X Ultra Strength] 180 mg PO QHS 04/06/18 Warfarin Sodium [Coumadin 3 mg Tablet] 3 mg PO SUMOTUTHSA@2200 04/06/18 Allergies/Adverse Reactions: pravastatin [Pravastatin] Allergy (Verified 04/05/18 16:27) NSAIDS (Non-Steroidal Anti-Inflamma [Nsaids] Adverse Reaction (Verified 16:27) Review of Systems Review of Systems: Please see history of present illness and past medical history as wall. Constitutional: No fever or chills reported. Head : No recent chronic headaches, recent head injury. Eyes: No recent eye pain, diplopia, redness, discharge, acute visual changes. Ears: No recent chronic ear pain, acute hearing loss, ear discharge. Oral cavity: No recent ulcerations, bleeding, oral cavity discomfort. Neck: No recent acute neck pain reported. Hematologic: No recent easy bruising or bleeding. Lymphatic: No recent lymph node enlargement reported. Cardiovascular system review: See history of present illness. Respiratory system review: No hemoptysis or blood clots in the lungs reported. Mild Shortness of breath on exertion Gastrointestinal system review: Negative for any recent acute hematemesis, melena. Genitourinary system review: No recent acute or chronic hematuria, flank pain, UTI etc. reported. Skin system review: Negative for any recent abnormal bruising, no rash, no pruritus reported. Neurologic: No prior history of strokes, mini strokes, seizure disorder. Psychologic: No history of major psychosis or major depression reported. Musculoskeletal: Minor aches and pains reported. No acute joint swelling reported. Endocrine: No recent polyuria, polydipsia, recent heat or cold intolerance. Physical Exam Vital Signs: Temp Pulse Resp BP Pulse Ox 97.8 F 60 17 131/55 H 92 04/06/18 10:00 04/06/18 10:00 04/06/18 10:00 04/06/18 10:04/06/18 10:00 Intake & Output 04/05/18 04/06/18 04/07/18 06:59 06:59 06:59 Weight 77.6 kg Exam: GENERAL: well-nourished and in no acute distress. Alert and oriented x3 HEAD: Atraumatic, normocephalic. EYES: Pupils equal round and reactive to light, extraocular movements intact, sclera anicteric, conjunctiva are normal. ENT: TMs normal, nares patent, oropharynx clear without exudates. Moist mucous membranes. No oral ulcerations or bleeding gums noted NECK: supple without lymphadenopathy. Trachea is central. No cervical or axillary lymphadenopathy noted. Carotids are 2+, JVD 14 cm LUNGS: Respiration seems nonlabored, no significant accessory muscle action noted. Bibasilar fine crackles are noted. No wheezes rales or rhonchi noted. No significant dullness noted on percussion. CHEST: Palpation of the chest wall shows no significant chest wall tenderness. HEART: [place] [employer] NUR[employer]' REGISTRY, No PSH, 1/6 ILENE aortic area, 1/6 [place] systolic murmur mitral area, no rubs, no gallops. ABDOMEN: Soft, no significant tenderness appreciated, normoactive bowel sounds. No guarding, no rebound. No rigidity noted . No masses appreciated. EXTREMITIES: Pedal pulses are 1-2+, no calf tenderness noted. No clubbing or cyanosis. negative pedal edema noted. AV fistula noted left arm. NEUROLOGICAL: Focused neurological exam showed no significant neurologic deficit. Normal speech, no focal weakness appreciated. PSYCH: Normal mood, normal affect. Judgment and insight within normal limits. SKIN: No significant ecchymosis, skin is noted to be warm. MUSCULOSKELETAL EXAM: No significant acute joint swelling noted. Results Laboratory Results: 04/06/18 05:52 04/06/18 04/06/18 05:52 05:52 Sodium 140.8 Potassium 4.9 Chloride 101 Carbon Dioxide 21 L Anion Gap 19 BUN 63 H Creatinine 6.80 H Est GFR ( Amer) 7 L Est GFR (Non-Af Amer) 6 L Glucose 98 Calcium 9.6 Magnesium 2.4 H 04/06/18 04/06/18 00:05 05:52 Troponin I 2.750 4.700 EKG Comments: Atrial fibrillation, no acute ST-T wave changes are noted Impressions: Chest X-Ray 04/05/18 16:59 IMPRESSION: STABLE MILD CHRONIC SCARRING. NO ACUTE RADIOGRAPHIC FINDING IN THE CHEST. Assessment & Plan - Diagnosis (1) Non-STEMI (non-ST elevated myocardial infarction) Is this a current diagnosis for this admission?: Yes (2) Chest pain Qualifiers: Chest pain type: other chest pain Qualified Code(s): R07.89 - Other chest pain; R07.8 - Other chest pain Is this a current diagnosis for this admission?: Yes (3) Elevated troponin Is this a current diagnosis for this admission?: Yes (4) Afib Qualifiers: Atrial fibrillation type: chronic Qualified Code(s): I48.2 - Chronic atrial fibrillation Is this a current diagnosis for this admission?: Yes (5) End stage renal disease on dialysis Is this a current diagnosis for this admission?: Yes (6) Sleep apnea syndrome Qualifiers: Sleep apnea type: unspecified type Qualified Code(s): G47.30 - Sleep apnea , unspecified Is this a current diagnosis for this admission?: Yes (7) Anticoagulant long-term use Is this a current diagnosis for this admission?: Yes (8) Congestive heart failure (CHF) Qualifiers: Qualified Code(s): I50.33 - Acute on chronic diastolic (congestive) heart failure Is this a current diagnosis for this admission?: Yes (9) HTN (hypertension) Qualifiers: Hypertension type: essential hypertension Qualified Code(s): I10 - Essential (primary) hypertension Is this a current diagnosis for this admission?: Yes - Notes Notes: Non-STEMI: Patient had chest pain yesterday and today has positive troponin I, therefore ruled in for non-STEMI. Patient already been seen by hospitalist who has arranged for transfer for heart catheterization to [facility] however, alternatively could have been risk stratified with noninvasive testing initially. This is especially so in view of EKG being unremarkable. Will review 2D echocardiogram. If LVEF is noted to be low, then certainly heart catheterization would be preferred. Chest pain: Resolved without any recurrence. Elevated troponin I: Related to non-STEMI. Atrial fibrillation: Chronic. Recommend rate control. Continue chronic anticoagulation. Sleep apnea syndrome: Continue in-hospital CPAP/BiPAP therapy at home setting. Chronic anticoagulation therapy, continue chronic anticoagulation. CHF: Patient noted to have elevated JVP. Will recommend fluid removal on dialysis. Hypertension: Currently stable. Blood pressure goal is 140/90 or less in this elderly lady. - Time Time Spent: 30 to 50 Minutes - More than 50% of the time spent coordinating care , discussing management plans with involved caregivers. Management plans discussed with involved personnels. Medical decision making was of moderate to high complexity, patient's has multiple comorbidities. Medications reviewed and adjusted accordingly: Yes
--- NOTE | 2018-04-06 15:18 | PDOC TRANSFER SUMMARY ---
General Admission Date/PCP: 04/05/18 22:56 MONO HINOJOSA-Ian Admission Date: 04/05/18 Accepting Facility: [facility] Accepting Physician: Dr. Oden Resuscitation Status: Full Code - Transfer Diagnosis (1) Non-STEMI (non-ST elevated myocardial infarction) Is this a current diagnosis for this admission?: Yes Diagnosis Summary: EKG demonstrates atrial fibrillation without acute ST segment changes. Troponins continue to trend up; 0.033 --> 5.700. Holding Coumadin (INR this morning 2.52) in anticipation of cardiac catheterization. The patient is placed on daily statin therapy. Awaiting bed assignment at [facility]. (2) COPD (chronic obstructive pulmonary disease) Is this a current diagnosis for this admission?: Yes Diagnosis Summary: Stable and without exacerbation. (3) Chronic atrial fibrillation Is this a current diagnosis for this admission?: Yes Diagnosis Summary: Rate controlled on home medication regiment. Holding Coumadin as above. (4) Elevated troponin Is this a current diagnosis for this admission?: Yes Diagnosis Summary: Secondary to #1. (5) GERD (gastroesophageal reflux disease) Is this a current diagnosis for this admission?: Yes (6) JEWELL (obstructive sleep apnea) Is this a current diagnosis for this admission?: Yes Diagnosis Summary: CPAP nightly. (7) End stage renal disease on dialysis Is this a current diagnosis for this admission?: Yes Diagnosis Summary: The patient's de ionizer operator, Dr. Ferreira, is consulted. (8) HTN (hypertension) Is this a current diagnosis for this admission?: Yes Diagnosis Summary: Normotensive on home medication regiment. (9) Hypothyroidism Is this a current diagnosis for this admission?: Yes Diagnosis Summary: Home dose regimen is continued. - Transfer Medications Home Medications: Amlodipine Besylate 5 mg PO Q12 07/17/15 Levothyroxine Sodium 50 mcg PO Q6AM 07/17/15 Omeprazole 20 mg PO BID 07/17/15 Warfarin Sodium 5 mg PO WEFR@2200 07/17/15 Acetaminophen [Tylenol Arthritis 650 mg Tablet] 1,300 mg PO Q12 09/14/15 Fluticasone Propionate [Flonase Nasal [place] 50 Mcg/[place] 16 gm] 1 spray NAREB DAILY 09/14/15 Hydralazine HCl 25 mg PO Q12 09/14/15 Guaifenesin [Mucinex] 1,200 mg PO Q12 12/15/16 B Complex W-C No.20/Folic Acid [Renal Caps Softgel] 1 mg PO DAILY 04/06/18 Loratadine [Claritin 10 mg Tablet] 10 mg PO DAILY 04/06/18 Magnesium Oxide [Mag-Ox 400 mg Tablet] 400 mg PO BID 04/06/18 Simethicone [Gas-X Ultra Strength] 180 mg PO QHS 04/06/18 Warfarin Sodium [Coumadin 3 mg Tablet] 3 mg PO SUMOTUTHSA@2200 04/06/18 Transfer Medications: Current Medications Acetaminophen (Tylenol 325 Mg Tablet) 650 mg PO Q4HP PRN PRN Reason: FOR PAIN OR TEMP Stop: 05/05/18 22:37 Last Admin: 04/06/18 05:56 Dose: 650 mg Amlodipine Besylate (Norvasc 5 Mg Tablet) 5 mg PO Q12 [facility]ECK[facility] Stop: 05/06/18 21:59 Benzonatate (Tessalon Perles 100 Mg Capsule) 100 mg PO PRN PRN PRN Reason: CONGESTION Stop: 05/05/18 22:44 Fluticasone Propionate (Flonase Nasal [place] 50 Mcg/[place] 16 Gm) 1 spray NASL Q12 [facility] Stop: 05/06/18 09:59 Last Admin: 04/06/18 10:43 Dose: 1 spr Furosemide (Lasix 40 Mg Tablet) 40 mg PO BID [facility] Stop: 05/06/18 09:59 Last Admin: 04/06/18 10:43 Dose: 40 mg Guaifenesin (Mucinex Sr 600 Mg Tablet.Sa) 600 mg PO Q12 [facility] Stop: 05/06/18 10:59 Last Admin: 04/06/18 10:42 Dose: 600 mg Hydralazine HCl (Apresoline 50 Mg Tablet) 25 mg PO BID [facility] Stop: 05/06/18 09:59 Last Admin: 04/06/18 10:42 Dose: 25 mg Lansoprazole (Prevacid 15 Mg Odt Tablet) 15 mg PO BID@0600,1700 [facility] Stop: 05/06/18 05:59 Last Admin: 04/06/18 05:56 Dose: 15 mg Levothyroxine Sodium (Synthroid 0.025 Mg Tablet) 0.05 mg PO Q6AM [facility] Stop: 05/06/18 05:59 Last Admin: 04/06/18 05:56 Dose: 0.05 mg Magnesium Oxide (Mag-Ox 400 Mg Tablet) 400 mg PO BID [facility] Stop: 05/06/18 09:59 Last Admin: 04/06/18 10:42 Dose: 400 mg Promethazine HCl (Phenergan Inj 25 Mg/1 Ml Vial) 12.5 mg IV Q4HP PRN PRN Reason: FOR NAUSEA/VOMITING Stop: 05/05/18 22:37 Sodium Chloride (Saline Flush 2.5 Ml Monoject Prefil Syrin) 2.5 ml IV Q8 [facility] Stop: 05/06/18 05:59 Last Admin: 04/06/18 13:48 Dose: 2.5 ml - Allergies Allergies/Adverse Reactions: pravastatin [Pravastatin] Allergy (Verified 04/05/18 16:27) NSAIDS (Non-Steroidal Anti-Inflamma [Nsaids] Adverse Reaction (Verified 16:27) - Diet/Activity Discharge Diet: Other (Comments) - Dialysis Discharge Activity: Activity As Tolerated Hospital Course Hospital Course: Per H&P: BELIA CHAVEZ is a 88 year old female history of atrial fibrillation, COPD, CHF, hypertension, dialysis every Thursday//Thursday, home CPAP, ex -smoker who presents to the emergency department with report that she had a echocardiogram done earlier today with Dr. Barnes and she was leaning on her side and in uncomfortable positions. Went home and she started feeling shaky when she got out of her car at home, felt more short of breath than her usual, she sat on the porch, got up to the house and was continuing shaking, diaphoretic, with chest discomfort in the center of her chest, burning in nature , radiated across her neck. Denies similar symptoms in the past. Denies fever but was feeling chills. Tells me that 1/2-week ago she stopped taking her omeprazole as she was feeling well, after that she has been having persistent very bad belching. In the emergency department has received famotidine, magnesium hydroxide and Carafate with totally resolve or her symptoms In the emergency department troponins were sent, first 1 0.033 and the repeated one at 0.551, patient does not have history of these elevation of troponins and was a concern, decided to keep the patient under observation today. Patient has chronic atrial fibrillation on anticoagulation with Coumadin with therapeutic INR. Last hemodialysis last Thursday, I spoke with Dr. Ferreira who is her de ionizer operator and will see her for hemodialysis tomorrow. Course: The patient was monitored overnight on continuous cardiac telemetry; remains in atrial fibrillation without acute EKG changes. The patient reports that her symptoms have resolved; denies current epigastric, back, jaw pain. She does endorse fatigue, however, reports that this is related to poor sleep overnight in the hospital environment. The patient's cardiac enzymes were monitored; continue to trend up with most recent of 5.700 at 12:00 noon today. The patient is therapeutic on Coumadin for chronic atrial fibrillation; this is placed on hold in anticipation of cardiac catheterization. She is placed on statin therapy., Otherwise, her home antihypertensive medications are continued. Cardiology has been consulted ; obtaining echocardiogram which is pending at time of dictation. The patient has indicated her desire to be transferred to [facility] where she is established with the heart center (Dr. Barnes) for cardiac catheterization. The patient's de ionizer operator (Dr. Ferreira) has been consulted; he is monitoring her chemistries and kidney function closely. He indicates that she is stable to forego dialysis today, however, will need dialysis tomorrow in addition to following cardiac cath procedure. The patient continues to have moderate urinary output and although she is noted to have fine bibasilar crackles, she does not appear to be especially fluid overloaded at this time. Dr. Oden at [facility] was contacted and has graciously agreed to accept this patient for transfer and definitive care. At this time, we are awaiting bed assignment. Physical Exam Vital Signs: Temp Pulse Resp BP Pulse Ox 97.5 F 74 18 129/68 H 92 04/06/18 11:32 04/06/18 14:00 04/06/18 11:32 04/06/18 11:32 04/06/18 11:32 Intake & Output 04/05/18 04/06/18 04/07/18 06:59 06:59 06:59 Weight 77.6 kg General appearance: PRESENT: no acute distress, cooperative - Overweight pleasant, well-developed, well-nourished Head exam: PRESENT: atraumatic, normocephalic Eye exam: PRESENT: conjunctiva pink, EOMI, PERRLA. ABSENT: scleral icterus Ear exam: PRESENT: normal external ear exam Mouth exam: PRESENT: moist, tongue midline Neck exam: ABSENT: carotid bruit, JVD, lymphadenopathy, thyromegaly Respiratory exam: PRESENT: crackles - Bibasilar; L>R, symmetrical, unlabored. ABSENT: rales, rhonchi, wheezes Cardiovascular exam: PRESENT: irregular rhythm, systolic murmur. ABSENT: diastolic murmur, rubs Pulses: PRESENT: normal dorsalis pedis pul Vascular exam: PRESENT: normal capillary refill GI/Abdominal exam: PRESENT: normal bowel sounds, soft. ABSENT: distended, guarding, mass, organolmegaly, rebound, tenderness Rectal exam: PRESENT: deferred Extremities exam: PRESENT: full ROM. ABSENT: calf tenderness, clubbing, pedal edema Neurological exam: PRESENT: alert, awake, oriented to person, oriented to place , oriented to time, oriented to situation, CN II-XII grossly intact. ABSENT: motor sensory deficit Psychiatric exam: PRESENT: appropriate affect, normal mood. ABSENT: homicidal ideation, suicidal ideation Skin exam: PRESENT: dry, intact, warm. ABSENT: cyanosis, rash Results Laboratory Results: 04/06/18 05:52 04/06/18 04/06/18 05:52 05:52 Sodium 140.8 Potassium 4.9 Chloride 101 Carbon Dioxide 21 L Anion Gap 19 BUN 63 H Creatinine 6.80 H Est GFR ( Amer) 7 L Est GFR (Non-Af Amer) 6 L Glucose 98 Calcium 9.6 Magnesium 2.4 H 04/06/18 04/06/18 04/06/18 00:05 05:52 12:02 Troponin I 2.750 4.700 5.700 Impressions: Chest X-Ray 04/05/18 16:59 IMPRESSION: STABLE MILD CHRONIC SCARRING. NO ACUTE RADIOGRAPHIC FINDING IN THE CHEST. Plan Discharge Plan: Transfer to [facility] under the care of Dr. Oden for anticipated cardiac catheterization. Time Spent: Greater than 30 Minutes
[2018-04-06] MEDS ORDERED: FUROSEMIDE INJ/PF 100 MG/10 ML SDV IV ONE (15:27)
[2018-04-06 20:26] VITALS: BP 144/55
--- NOTE | 2018-04-06 21:08 | EKG REPORT ---
SEVERITY:- ABNORMAL ECG - ATRIAL FIBRILLATION BORDERLINE T ABNORMALITIES, INFERIOR LEADS : Confirmed by: Vita Gaines 06-Apr-2018 21:06:40
[2018-04-06] MEDS ORDERED: WARFARIN SODIUM 5 MG TABLET PO SCH (22:00)
[2018-04-06] MEDS ORDERED: AMLODIPINE BESYLATE 5 MG TABLET PO SCH (22:00)
[2018-04-06] MEDS ORDERED: WARFARIN SODIUM 3 MG TABLET PO SCH (22:00)
--- NOTE | 2018-04-07 08:19 | PDOC CONSULTATION ---
Consultation Consult Date: 04/06/18 Consult reason:: ESRD and dialysis. History of Present Illness Admission Date/PCP: 04/05/18 22:56 JUDY HINOJOSA History of Present Illness: BELIA CHAVEZ is a 88 year old female history of ESRD, hypertension on dialysis. Admitted with history of chest tightness and SOB on exertion. It occurred for a few hours prior to her presenting to the ER. The chest pressure radiated into her chest, jaw and shoulder. Initially she thought it was acid reflux but since it persisted for 3-4 hours she went to the ER. She was appropriately treated and worked up for acute DC. Labs and medications have been reviewed with her. Her troponins are highly positive suggestive of NST DC. Currently she is asymptomatic. She still makes a decent amount of residual urine. Past Medical History Cardiac Medical History: Reports: Atrial Fibrillation, Hyperlipidemia, Hypertension-primary Denies: Coronary Artery Disease, Myocardial Infarction Pulmonary Medical History: Reports: Bronchitis, Pneumonia - hx of, Respiratory Failure, Sleep Apnea Denies: Asthma, Chronic Obstructive Pulmonary Disease (COPD), Tuberculosis Neurological Medical History: Denies: Seizures Endocrine Medical History: Reports: Hypothyroidism Renal/ Medical History: Reports: End Stage Renal Disease, Secondary Hyperparathyroidism GI Medical History: Reports: Gastroesophageal Reflux Disease Musculoskeltal Medical History: Reports: Arthritis Psychiatric Medical History: Denies: Dementia, Depression Hematology Medical History: Reports Anemia of Chronic Kidney Disease Past Surgical History Past Surgical History: Reports: Hysterectomy Denies: Pacemaker Social History Lives with: Family Smoking Status: Never Smoker Frequency of Alcohol Use: None Hx Recreational Drug Use: No Drugs: None Hx Prescription Drug Abuse: No Family History Parental Family History Reviewed: Yes - negative for ESRD Children Family History Reviewed: Yes Sibling(s) Family History Reviewed.: Yes Medication/Allergy Home Medications: Amlodipine Besylate 5 mg PO Q12 07/17/15 Levothyroxine Sodium 50 mcg PO Q6AM 07/17/15 Omeprazole 20 mg PO BID 07/17/15 Warfarin Sodium 5 mg PO WEFR@2200 07/17/15 Acetaminophen [Tylenol Arthritis 650 mg Tablet] 1,300 mg PO Q12 09/14/15 Fluticasone Propionate [Flonase Nasal [place] 50 Mcg/[place] 16 gm] 1 spray NAREB DAILY 09/14/15 Hydralazine HCl 25 mg PO Q12 09/14/15 Guaifenesin [Mucinex] 1,200 mg PO Q12 12/15/16 B Complex W-C No.20/Folic Acid [Renal Caps Softgel] 1 mg PO DAILY 04/06/18 Loratadine [Claritin 10 mg Tablet] 10 mg PO DAILY 04/06/18 Magnesium Oxide [Mag-Ox 400 mg Tablet] 400 mg PO BID 04/06/18 Simethicone [Gas-X Ultra Strength] 180 mg PO QHS 04/06/18 Warfarin Sodium [Coumadin 3 mg Tablet] 3 mg PO SUMOTUTHSA@2200 04/06/18 Allergies/Adverse Reactions: pravastatin [Pravastatin] Allergy (Verified 04/05/18 16:27) NSAIDS (Non-Steroidal Anti-Inflamma [Nsaids] Adverse Reaction (Verified 16:27) Review of Systems Constitutional: PRESENT: fatigue. ABSENT: fever(s), headache(s), weakness Cardiovascular: PRESENT: chest pain, dyspnea on exertion Respiratory: PRESENT: dyspnea Gastrointestinal: ABSENT: abdominal pain, coffee ground emesis, hematemesis, hematochezia Genitourinary: ABSENT: dysuria, hematuria Neurological: ABSENT: abnormal gait, frequent falls, weakness Psychiatric: PRESENT: anxiety. ABSENT: depression Physical Exam Vital Signs: Temp Pulse Resp BP Pulse Ox 98.1 F 72 14 120/51 L 94 04/06/18 03:26 04/06/18 07:00 04/06/18 03:26 04/06/18 03:26 04/06/18 03:26 Intake & Output 04/05/18 04/06/18 04/07/18 06:59 06:59 06:59 Weight 77.6 kg General appearance: PRESENT: no acute distress Eye exam: PRESENT: conjunctiva pink, PERRLA Mouth exam: PRESENT: moist, neck supple Neck exam: ABSENT: lymphadenopathy, meningismus, tenderness, thyromegaly, tracheal deviation Respiratory exam: PRESENT: clear to auscultation patricia, crackles - few coarse in left base., symmetrical. ABSENT: rhonchi Cardiovascular exam: PRESENT: +S1, +S2, systolic murmur GI/Abdominal exam: PRESENT: normal bowel sounds, soft. ABSENT: organomegaly, tenderness Extremities exam: ABSENT: pedal edema Neurological exam: PRESENT: alert, awake, oriented to person, oriented to place , oriented to time Psychiatric exam: PRESENT: anxious Skin exam: ABSENT: erythema, mottled, rash Results Laboratory Results: 04/06/18 05:52 04/06/18 04/06/18 05:52 05:52 Sodium 140.8 Potassium 4.9 Chloride 101 Carbon Dioxide 21 L Anion Gap 19 BUN 63 H Creatinine 6.80 H Est GFR ( Amer) 7 L Est GFR (Non-Af Amer) 6 L Glucose 98 Calcium 9.6 Magnesium 2.4 H 04/06/18 04/06/18 00:05 05:52 Troponin I 2.750 4.700 Impressions: Chest X-Ray 04/05/18 16:59 IMPRESSION: STABLE MILD CHRONIC SCARRING. NO ACUTE RADIOGRAPHIC FINDING IN THE CHEST. Assessment & Plan - Diagnosis (1) Non-STEMI (non-ST elevated myocardial infarction) Is this a current diagnosis for this admission?: Yes Plan: Patient has NST DC currently asymptomatic and stable. I discussed with her that she would need to have a cardiac catheterization done and she would need to be transferred to [place]. I went ahead and discussed with her hospitalist about the need for her to be in a telemetry bed and that she needs to be transferred as soon as possible for cardiac catheterization. (2) End stage renal disease on dialysis Is this a current diagnosis for this admission?: Yes Plan: Last dialysis was on Thursday. She is due for dialysis today. No signs of overt CHF. Discussed with her that if she does have a cardiac catheterization today that I would prefer for her to be dialyzed afterwards as she still has meaningful residual renal function. She is agreeable. No acute indications for dialysis now. (3) JEWELL (obstructive sleep apnea) Is this a current diagnosis for this admission?: Yes Plan: Advised compliance with CPAP. (4) Pulmonary hypertension Plan: Currently stable. (5) Afib Qualifiers: Atrial fibrillation type: chronic Qualified Code(s): I48.2 - Chronic atrial fibrillation Is this a current diagnosis for this admission?: Yes Plan: Presently rate controlled. (6) Congestive heart failure (CHF) Qualifiers: Qualified Code(s): I50.33 - Acute on chronic diastolic (congestive) heart failure Is this a current diagnosis for this admission?: Yes Plan: Presently stable would however I would give a dose of Lasix. (7) HTN (hypertension) Qualifiers: Hypertension type: essential hypertension Qualified Code(s): I10 - Essential (primary) hypertension Is this a current diagnosis for this admission?: Yes Plan: Stable.
[2018-04-07] MEDS ORDERED: WARFARIN SODIUM 5 MG TABLET PO SCH (22:00)
== END 2018-04-06 20:42 | disposition short-term general hospital (02) ==
LOC: ER 16:07 → EH 22:56 → 4S 04-06 01:54 → 3S 04-06 14:15
PROVIDERS: ADMIT Internal Medicine; ATTEND Internal Medicine
DX: I21.4 Non-ST elevation (NSTEMI) myocardial infarction (principal); J44.9 Chronic obstructive pulmonary disease, unspecified; I48.2 Chronic atrial fibrillation; K21.9 Gastro-esophageal reflux disease without esophagitis; G47.33 Obstructive sleep apnea (adult) (pediatric); I13.2 Hypertensive heart and chronic kidney disease with heart failure and with stage 5 chronic kidney disease, or end stage renal disease; N18.6 End stage renal disease; I50.33 Acute on chronic diastolic (congestive) heart failure; E03.9 Hypothyroidism, unspecified; E66.3 Overweight; F41.9 Anxiety disorder, unspecified; I27.20 Pulmonary hypertension, unspecified; R79.89 Other specified abnormal findings of blood chemistry; Z99.2 Dependence on renal dialysis; Z79.899 Other long term (current) drug therapy; Z90.710 Acquired absence of both cervix and uterus; Z87.891 Personal history of nicotine dependence; Z82.49 Family history of ischemic heart disease and other diseases of the circulatory system; Z79.01 Long term (current) use of anticoagulants; Z68.34 Body mass index [BMI] 34.0-34.9, adult
CPT/HCPCS: 93005 ×2; 99291; 96374; 36415 ×2; 83735 ×2; 85025; 85610 ×2; 80048; 80053; 84484 ×2; 71045; 93010 ×2; 94660; G0378 ×3; A9270 ×11; J1940; C9113; J3490 ×2; S0164

== ENCOUNTER 2018-09-08 13:55 | Emergency (ER) | payer MEDICARE ==
[2018-09-08] MEDS ORDERED: FENTANYL CITRATE INJ/PF 100 MCG/2 ML AMPUL IM ONE (14:20)
--- NOTE | 2018-09-08 14:22 | ER Document Report ---
ED Medical Screen (RME) - General Chief Complaint: Arm Pain Stated Complaint: RIGHT ARM PAIN Time Seen by Provider: 09/08/18 14:10 Primary Care Provider: SUDHAKAR ALEMAN FNP-C [Primary Care Provider] - Follow up as needed Notes: Patient is a 88-year-old female that presents to the emergency department for chief complaint of right arm pain. Patient states that she was getting up and she felt severe pain in her right shoulder, and has not improved since then. Describes it as severe in nature. Reports prior history of arthritis ROS: Other than noted above, the 12 point review of systems was reviewed with the patient and were negative, all pertinent findings are included in the HPI. PHYSICAL EXAMINATION: Vital signs reviewed. GENERAL: Elderly female, appears uncomfortable HEAD: Atraumatic, normocephalic. EYES: Pupils equal round extraocular movements intact, conjunctiva are normal. ENT: Nares patent NECK: Normal range of motion CV: Heart regular rate and rhythm LUNGS: No respiratory distress Musculoskeletal: Pain with range of motion of the right shoulder and tenderness to palpation over the bicipital groove NEUROLOGICAL: Normal speech PSYCH: Normal mood, normal affect. MDM: Patient seen and examined for rapid initial assessment. Vital signs reviewed. A comprehensive ED assessment and evaluation of the patient, analysis of test results and completion of the medical decision making process will be conducted by additional ED providers. *Note is created using voice recognition software and may contain spelling, syntax or grammatical errors. TRAVEL OUTSIDE OF THE [place] IN LAST 30 DAYS: No - Related Data Allergies/Adverse Reactions: NSAIDS (Non-Steroidal Anti-Inflamma [Nsaids] Adverse Reaction (Verified 09/08/18 14:05) Past Medical History - Social History Frequency of alcohol use: None Drug Abuse: None - Past Medical History Cardiac Medical History: Reports: Hx Atrial Fibrillation, Hx Congestive Heart Failure, Hx Hypercholesterolemia, Hx Hypertension Denies: Hx Coronary Artery Disease, Hx Heart Attack Pulmonary Medical History: Reports: Hx Bronchitis, Hx Pneumonia - hx of, Hx Respiratory Failure, Hx Sleep Apnea Denies: Hx Asthma, Hx COPD, Hx Tuberculosis Neurological Medical History: Denies: Hx Cerebrovascular Accident, Hx Seizures Endocrine Medical History: Reports: Hx Hypothyroidism Renal/ Medical History: Reports: Hx End Stage Renal Disease, Hx Renal Insufficiency. Denies: Hx Peritoneal Dialysis GI Medical History: Reports: Hx Gastroesophageal Reflux Disease Musculoskeltal Medical History: Reports Hx Arthritis, Denies Hx Multiple Sclerosis Psychiatric Medical History: Denies: Hx Dementia, Hx Depression Past Surgical History: Reports: Hx Hysterectomy, Hx Orthopedic Surgery - bunion. Denies: Hx Pacemaker - Immunizations Hx Diphtheria, Pertussis, Tetanus Vaccination: Yes Physical Exam - Vital signs Vitals: Temp Pulse Resp BP Pulse Ox 97.8 F 71 22 H 151/77 H 95 09/08/18 13:59 09/08/18 13:59 09/08/18 13:59 09/08/18 13:59 09/08/18 13:59 Course - Vital Signs Vital signs: Temp Pulse Resp BP Pulse Ox 97.8 F 71 22 H 151/77 H 95 09/08/18 13:59 09/08/18 13:59 09/08/18 13:59 09/08/18 13:59 09/08/18 13:59 Doctor's Discharge - Discharge Referrals: SUDHAKAR ALEMAN FNP-C [Primary Care Provider] - Follow up as needed
--- NOTE | 2018-09-08 15:04 | RADIOLOGY REPORT (SQ) ---
EXAM DESCRIPTION: SHOULDER RIGHT 2 OR MORE VIEWS COMPLETED DATE/TIME: 09/08/2018 2:52 pm REASON FOR STUDY: right shoulder pain COMPARISON: AP chest 04/05/2018 NUMBER OF VIEWS: Three views. TECHNIQUE: Internal rotation, external rotation, and Y view images acquired of the right shoulder. LIMITATIONS: None. FINDINGS: MINERALIZATION: Osteoporotic BONES: No acute fracture or dislocation. No lytic or blastic lesions. JOINTS: Normal glenohumeral joint alignment. No gross AC joint separation. Glenohumeral joint chond rocalcinosis. Bony spurring at the AC joint. VISUALIZED LUNGS AND RIBS: No pneumothorax. No rib fracture. SOFT TISSUES: No radiopaque foreign body. OTHER: No other significant finding. IMPRESSION: No acute fracture. No dislocation. Diffuse glenohumeral joint chondrocalcinosis TECHNICAL DOCUMENTATION: JOB ID: [id number] [employer]- All Rights Reserved Reading location - IP/workstation name: [email or web address]
--- NOTE | 2018-09-08 15:29 | ER Document Report ---
ED General - General Chief Complaint: Arm Pain Stated Complaint: RIGHT ARM PAIN Time Seen by Provider: 09/08/18 14:10 Primary Care Provider: SUDHAKAR ALEMAN FNP-C [Primary Care Provider] - Follow up as needed TRAVEL OUTSIDE OF THE [place] IN LAST 30 DAYS: No - HPI Notes: Patient is an 88-year-old female with a history of hypertension, congestive heart failure, end-stage renal disease and on dialysis every Thursday//Thursday, A. fib (on Coumadin) who presents the emergency department complaining of acute right shoulder pain that occurred suddenly this morning. Patient states that she was getting out of bed and using her arms when she noticed the pain. Patient states that the pain has been sharp and constant since. The pain does not radiate. She has otherwise been eating and drinking without difficulty. No other concerns or complaints. Denies any headache, fever, head injury, neck pain, URI, sore throat, chest pain, palpitations, syncope, cough, shortness of breath, wheeze, dyspnea, abdominal pain, nausea/vomiting/diarrhea, urinary retention, dysuria, hematuria, loss of control of bowel or bladder, numbness/tingling, saddle anesthesia, muscle paralysis, or rash. - Related Data Allergies/Adverse Reactions: NSAIDS (Non-Steroidal Anti-Inflamma [Nsaids] Adverse Reaction (Verified 09/08/18 14:05) Past Medical History - Social History Smoking Status: Former Smoker Frequency of alcohol use: None Drug Abuse: None Family History: Hypertension Patient has suicidal ideation: No Patient has homicidal ideation: No - Past Medical History Cardiac Medical History: Reports: Hx Atrial Fibrillation, Hx Congestive Heart Failure, Hx Hypercholesterolemia, Hx Hypertension Denies: Hx Coronary Artery Disease, Hx Heart Attack Pulmonary Medical History: Reports: Hx Bronchitis, Hx Pneumonia - hx of, Hx Respiratory Failure, Hx Sleep Apnea Denies: Hx Asthma, Hx COPD, Hx Tuberculosis Neurological Medical History: Denies: Hx Cerebrovascular Accident, Hx Seizures Endocrine Medical History: Reports: Hx Hypothyroidism Renal/ Medical History: Reports: Hx End Stage Renal Disease, Hx Renal Insufficiency. Denies: Hx Peritoneal Dialysis GI Medical History: Reports: Hx Gastroesophageal Reflux Disease Musculoskeletal Medical History: Reports Hx Arthritis, Denies Hx Multiple Sclerosis Psychiatric Medical History: Denies: Hx Dementia, Hx Depression Past Surgical History: Reports: Hx Hysterectomy, Hx Orthopedic Surgery - bunion. Denies: Hx Pacemaker - Immunizations Hx Diphtheria, Pertussis, Tetanus Vaccination: Yes Hx Pneumococcal Vaccination: 08/03/15 Review of Systems - Review of Systems -: Yes All other systems reviewed and negative Physical Exam - Vital signs Vitals: Temp Pulse Resp BP Pulse Ox 97.8 F 71 22 H 151/77 H 95 09/08/18 13:59 09/08/18 13:59 09/08/18 13:59 09/08/18 13:59 09/08/18 13:59 - Notes Notes: PHYSICAL EXAMINATION: GENERAL: Well-appearing, well-nourished and in no acute distress. NECK: Normal range of motion, supple without lymphadenopathy. Non-tender. Spurling negative. No rigidity/meningismus. LUNGS: Breath sounds clear to auscultation bilaterally and equal. No wheezes rales or rhonchi. HEART: Regular rate and rhythm without murmurs, rubs, gallops. Musculoskeletal: Rt shoulder: FROM to passive. LROM to active due to pain. Strength 4+/5 due to pain. No erythema or warmth. No deformity or ecchymosis. + possible distal bulge (pt has a larger arm to begin with with very loose skin) indicating possible prox biceps tendon tear. + tenderness to the anterior shoulder otherwise. N/V intact distal. Extremities: No cyanosis, clubbing, or edema b/l. Peripheral pulses 2+. Capillary refill less than 3 seconds. NEUROLOGICAL: Normal speech, normal gait. Normal sensory, motor exams PSYCH: Normal mood, normal affect. SKIN: Warm, Dry, normal turgor, no rashes or lesions noted. Course - Re-evaluation Re-evalutation: 09/08/18 15:27 [address] did speak with Dr[address] Hurley who also believes it to be a possible biceps tear. I spoke with Dr. Payne who recommends sling and f/u. Patient is an afebrile, well-hydrated, 88-year-old female who presents to the ED with Rt shoulder pain which I suspect to be a possible biceps tear. Vitals are acceptable without any significant tachycardia, tachypnea, or hypoxia. PE is otherwise unremarkable for any neurovascular compromise, obvious fracture/dislocation, septic joint. X-ray was unremarkable for any acute pathology. Sling and fentanyl IM were provided today. Patient is nontoxic- appearing. No other labs or imaging warranted at this time based on H&P. Pt has a new Rx of norco that she just filled from a previous provider that she will be taking for pain at home. Conservative measures otherwise for symptoms. Recheck with your PCM in 3-5 days. F/u with Ortho in the next 3-5 days. Return to the ED with any worsening/concerning symptoms otherwise as reviewed in discharge. Patient is in agreement. - Vital Signs Vital signs: Temp Pulse Resp BP Pulse Ox 97.8 F 71 22 H 151/77 H 95 09/08/18 13:59 09/08/18 13:59 09/08/18 13:59 09/08/18 13:59 09/08/18 13:59 Discharge - Discharge Clinical Impression: Right shoulder pain Qualifiers: Chronicity: acute Qualified Code(s): M25.511 - Pain in right shoulder Condition: Stable Disposition: HOME, SELF-CARE Additional Instructions: Rest, Ice, Compression Use sling as directed Tylenol as needed F/u with your PCP in 3-5 days for a recheck Call orthopedics tomorrow to schedule an appointment for further evaluation and management Return to the ED with any worsening symptoms and/or development of fever, headache, chest pain, palpitations, syncope, shortness of breath, trouble breathing, abdominal pain, n/v/d, muscle weakness/paralysis, numbness/tingling, swelling, redness, or other worsening symptoms that are concerning to you. Forms: Elevated Blood Pressure Referrals: SUDHAKAR ALEMAN FNP-C [Primary Care Provider] - Follow up as needed [facility] [Provider Group] - Follow up in 3-5 days
[2018-09-08] MEDS ORDERED: ACETAMINOPHEN 325 MG TABLET PO ONE (15:30)
[2018-09-08 15:48] VITALS: BP 146/55
--- NOTE | 2018-09-08 20:54 | ER Document Report ---
Doctor's Note Notes: I personally and independently obtained patient history and examined the patient in conjunction with the APC and agree with the assessment, treatment plan and disposition of the patient as recorded by the APC, and have reviewed the APC's note. HISTORY OF PRESENT ILLNESS: Patient is a 88-year-old female that presents to the emergency department for chief complaint of right arm pain. Patient states that she was getting up and she felt severe pain in her right shoulder, and has not improved since then. Describes it as severe in nature, and rates it as a 8 out of 10 at this time. She took a pain pill prior to ED arrival, without much relief of her symptoms. ROS: Other than noted above, the 12 point review of systems was reviewed with the patient and were negative, all pertinent findings are included in the HPI. PHYSICAL EXAMINATION: Vital signs reviewed. GENERAL: Elderly obese, female, appears uncomfortable HEAD: Atraumatic, normocephalic. EYES: Pupils equal round extraocular movements intact, conjunctiva are normal. ENT: Nares patent NECK: Normal range of motion CV: Heart regular rate and rhythm LUNGS: No respiratory distress Musculoskeletal: Pain with range of motion of the right shoulder and tenderness to palpation over the bicipital groove, there is some tenderness to palpation of the bicep as well, the rest the patient's extremity exam particularly in the left upper extremity in the bilateral lower extremities was unremarkable NEUROLOGICAL: Normal speech PSYCH: Normal mood, normal affect. MEDICAL DECISION MAKING: Patient had x-ray of the shoulder obtained, which was negative for acute bony injury, arthritic changes noted, and chondrocalinosis, low clinical suspicion for calcium pyrophosphate disease, given this was sudden onset of pain, as opposed to slow buildup and warmth and swelling which was not present on this patient's exam, patient's clinical exam per myself and the APC, was most consistent with proximal biceps tendon rupture, patient placed in a sling, and advised to follow-up with orthopedic surgery. Please review detail APC documentation. *Note is created using voice recognition software and may contain spelling, syntax or grammatical errors. Shoulder X-Ray 09/08/18 14:22 IMPRESSION: No acute fracture. No dislocation. Diffuse glenohumeral joint chondrocalcinosis
== END 2018-09-08 15:48 | disposition home or self-care (01) ==
LOC: ER 13:55
DX: M25.511 Pain in right shoulder (principal); I48.91 Unspecified atrial fibrillation; Z79.01 Long term (current) use of anticoagulants; I12.0 Hypertensive chronic kidney disease with stage 5 chronic kidney disease or end stage renal disease; N18.6 End stage renal disease; Z99.2 Dependence on renal dialysis; Z87.891 Personal history of nicotine dependence
CPT/HCPCS: 99283; 96372; 73030; A9270; J3010

== ENCOUNTER → 2018-11-16 | Outpatient (CLI) | payer MEDICARE ==
[2018-11-16 14:36] LABS: INTERNATIONAL RATION (INR) 1.96; PROTHROMBIN TIME 23.3 SEC (11.4-15.4)
== END ==
LOC: OD 12:56
PROVIDERS: ATTEND Nurse Practitioner Family
DX: Z79.01 Long term (current) use of anticoagulants (principal)
CPT/HCPCS: 36415; 85610

== ENCOUNTER 2019-05-30 08:52 | Inpatient (IN) | payer MEDICARE ==
[2019-05-30] MEDS ORDERED: LIDOCAINE 2% VISCOUS SOLN 20 ML UDCUP PO ONE (09:45)
[2019-05-30] MEDS ORDERED: METOCLOPRAMIDE HCL ORAL SOLN 10 MG/10 ML UDCUP PO ONE (09:45)
[2019-05-30] MEDS ORDERED: MAG HYDROX/AL HYDROX/SIMETH SUSP 30 ML UDCUP PO ONE (09:45)
--- NOTE | 2019-05-30 09:50 | ER Document Report ---
ED General - General Chief Complaint: Chest Pain Stated Complaint: CHEST PAIN Time Seen by Provider: 05/30/19 09:06 Primary Care Provider: SUDHAKAR ALEMAN FNP-C [Primary Care Provider] - Follow up as needed Information source: Patient Notes: Ms. Chavira is an 89-year-old female with PMH of ESRD on HD Thursday//Thursday, hypothyroidism, GERD, COPD, JEWELL on CPAP, hypertension, and hyperlipidemia presenting to the ED for epigastrium/chest pain. Patient states she was awoken this morning at approximately 5:30 AM with intense burping. She states the burps are quite painful in nature and they radiate to her back and bilateral shoulders. She also endorses feeling gasy and has been passing gas without any pain. She denies any trouble breathing however per RN, on initial connection to the monitor, the patient was hypoxic 85 and working to breathe at a rate of 24 to 28 breaths/min. She was placed on nasal cannula. Patient does not endorse any known shortness of breath that she was aware of. Patient denies any missed sessions of dialysis and states that the last time she was dialyzed was this past Thursday. Patient denies any fevers or chills, cough, nausea vomiting or diarrhea. She still makes a small amount of urine. TRAVEL OUTSIDE OF THE [place] 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 Denies: Hx Peritoneal Dialysis GI Medical History: Reports: Hx Gastroesophageal Reflux Disease Musculoskeletal Medical History: Reports Hx Arthritis, Denies Hx Multiple Sclerosis Psychiatric Medical History: Denies: Hx Dementia, Hx Depression Past Surgical History: Reports: Hx Hysterectomy, Hx Orthopedic Surgery - bunion. Denies: Hx Pacemaker - Immunizations Hx Diphtheria, Pertussis, Tetanus Vaccination: Yes Hx Pneumococcal Vaccination: 08/03/15 Review of Systems - Review of Systems Constitutional: See HPI EENT: No symptoms reported Cardiovascular: See HPI Respiratory: See HPI Gastrointestinal: No symptoms reported Genitourinary: No symptoms reported Female Genitourinary: No symptoms reported Musculoskeletal: No symptoms reported Skin: No symptoms reported Hematologic/Lymphatic: No symptoms reported Neurological/Psychological: No symptoms reported Physical Exam - Vital signs Vitals: Resp Pulse Ox 17 89 L 05/30/19 08:58 05/30/19 08:58 Interpretation: Tachypneic - General General appearance: Appears well, Alert - HEENT Head: Normocephalic, Atraumatic Eyes: Normal Pupils: PERRL - Respiratory Respiratory status: No respiratory distress, Tachypnea, Other - Hypoxic to 85% on room air. Placed on 1 L satting 93-94. Chest status: Nontender Breath sounds: Normal Chest palpation: Normal - Cardiovascular Rhythm: Regular Heart sounds: Normal auscultation Murmur: Yes - 3 out of 6 systolic murmur - Abdominal Inspection: Normal Distension: No distension, Other - Actively burping throughout examination. Bowel sounds: Normal Tenderness: Tender - in epigastrim and RUQ Organomegaly: No organomegaly - Back Back: Normal, Nontender - Extremities General upper extremity: Normal inspection, Nontender, Normal color, Normal ROM, Normal temperature General lower extremity: Normal inspection, Nontender, Normal color, Normal ROM, Normal temperature, Normal weight bearing. No: Harsha's sign - Neurological Neuro grossly intact: Yes Cognition: Normal Orientation: AAOx4 Kieran Coma Scale Eye Opening: Spontaneous [place] Coma Scale Verbal: Oriented Kieran Coma Scale Motor: Obeys Commands [place]ridge Coma Scale Total: 15 Speech: Normal Motor strength normal: LUE, RUE, LLE, RLE Sensory: Normal - Psychological Associated symptoms: Normal affect, Normal mood - Skin Skin Temperature: Warm Skin Moisture: Dry Skin Color: Normal Course - Re-evaluation Re-evalutation: Patient is generally well-appearing and nontoxic. Initial vitals tachypnea and mild hypoxia. EKG nonischemic and shows regular rate bradycardia. Differential diagnosis includes GERD, ACS (unlikely), cholelithiasis 05/30/19 11:35 CBC does not show significant leukocytosis however the patient is slightly left shifted at 84%. H&H is decreased but stable. CMP notable for elevation in both the total and direct bili. Remainder of labs notable for elevated creatinine however that is to be expected with this patient and known CKD on dialysis. She will be ordered for right upper quadrant ultrasound to assess the possible etiology of her elevated bili's. 05/30/19 12:38 Right upper quadrant ultrasound concerning for cholelithiasis with thickened gallbladder wall. Possible cholecystitis. UA shows evidence of UTI. Patient ordered for ceftriaxone. 05/30/19 14:[address] Trinidad. Would prefer the patient be admitted to medicine with surgery consult. Make patient n.p.o. with antibiotics. Vivi requested that I ask with the patient's CODE STATUS was. Ceftriaxone canceled and patient ordered for Zosyn to cover both her UTI and gallbladder. 05/30/19 14:55 Regarding CODE STATUS, patient states she would like them to try for a little bit but she would not want it ongoing for prolonged period of time. 05/30/19 15:05 Spoke to , will accept to his service. - Vital Signs Vital signs: Temp Pulse Resp BP Pulse Ox 98 F 78 25 H 120/63 93 05/30/19 09:14 05/30/19 09:14 05/30/19 13:01 05/30/19 13:01 05/30/19 13:01 - Laboratory Result Diagrams: 05/30/19 09:32 05/30/19 09:32 Laboratory results interpreted by me: 05/30/19 05/30/19 05/30/19 09:32 09:32 10:33 RBC 3.22 L Hgb 10.5 L Hct 31.2 L RDW 16.5 H Lymph % (Auto) 7.2 L Absolute Neuts (auto) 8.8 H Seg Neutrophils % 84.8 H Anion Gap 20 H BUN 38 H Creatinine 6.06 H Est GFR ( Amer) 8 L Est GFR (MDRD) Non-Af 7 L Glucose 120 H Total Bilirubin 1.8 H Direct Bilirubin 1.7 H Alkaline Phosphatase 155 H Total Protein 8.4 H Urine Protein 100 H Urine Bilirubin MODERATE H Ur Leukocyte Esterase MODERATE H - EKG Interpretation by Me EKG shows normal: [place], QRS Complexes, ST-T Waves Rate: Normal Rhythm: A.Fib When compared to previous EKG there are: Previous EKG unavailable Discharge - Discharge Clinical Impression: Cholecystitis, Belching, Elevated bilirubin, JEWELL (obstructive sleep apnea), CKD (chronic kidney disease) requiring chronic dialysis COPD (chronic obstructive pulmonary disease) Qualifiers: COPD type: unspecified COPD Qualified Code(s): J44.9 - Chronic obstructive pulmonary disease, unspecified Condition: Good Disposition: ADMITTED INPATIENT Admitting Provider: Nena (Hospitalist) Unit Admitted: Medical Floor Referrals: SUDHAKAR ALEMAN FNP-C [Primary Care Provider] - Follow up as needed
[2019-05-30 10:04] LABS: ABSOLUTE EOSINOPHILS # (AUTO) 0.1 10^3/uL (0.0-0.6); ABSOLUTE LYMPHOCYTES (AUTO) 0.7 10^3/uL (0.5-4.7); ABSOLUTE MONOCYTES (AUTO) 0.7 10^3/uL (0.1-1.4); ABSOLUTE NEUT (AUTO) 8.8 10^3/uL (1.7-8.2); BASOPHILS % (AUTO) 0.4 % (0-2); EOSINOPHILS % (AUTO) 1.2 % (0-6); HEMATOCRIT 31.2 % (36.0-47.0); HEMOGLOBIN 10.5 g/dL (12.0-15.5); LYMPHOCYTES % (AUTO) 7.2 % (13-45); MEAN CORPUSCULAR HEMOGLOBIN 32.5 pg (27.0-33.4); MEAN CORPUSCULAR HGB CONC 33.5 g/dL (32.0-36.0); MEAN CORPUSCULAR VOLUME 97 fl (80-97); MONOCYTES % (AUTO) 6.4 % (3-13); PLATELET COUNT 211 10^3/uL (150-450); RED BLOOD COUNT 3.22 10^6/uL (3.72-5.28); RED CELL DISTRIBUTION WIDTH 16.5 % (11.5-14.0); SEGMENTED NEUTROPHILS % (AUTO) 84.8 % (42-78); TOTAL CELLS COUNTED % (AUTO) 100 %; WHITE BLOOD COUNT 10.4 10^3/uL (4.0-10.5)
[2019-05-30 10:14] LABS: ALBUMIN 4.9 g/dL (3.5-5.0); ALKALINE PHOSPHATASE 155 U/L (38-126); ASPARTATE AMINO TRANSFERASE 33 U/L (14-36); BILIRUBIN,DIRECT 1.7 mg/dL (0.0-0.4); BILIRUBIN,TOTAL 1.8 mg/dL (0.2-1.3); BLOOD UREA NITROGEN 38 mg/dL (7-20); CALCIUM 10.1 mg/dL (8.4-10.2); CARBON DIOXIDE 23 mmol/L (22-30); CHLORIDE 98 mmol/L (98-107); GLUCOSE 120 mg/dL (75-110); TOTAL PROTEIN 8.4 g/dL (6.3-8.2)
[2019-05-30 10:23] LABS: ANION GAP 20 (5-19)
[2019-05-30 10:59] LABS: APPEARANCE,URINE SLIGHTLY-CLOUDY; BILIRUBIN,URINE MODERATE (NEGATIVE); COLOR,URINE YELLOW; GLUCOSE, URINE NEGATIVE (NEGATIVE); KETONES,URINE NEGATIVE (NEGATIVE); LEUKOCYTE ESTERASE,URINE MODERATE (NEGATIVE); NITRITE,URINE NEGATIVE (NEGATIVE); PROTEIN,URINE 100 mg/dL (NEGATIVE); URINE SPECIFIC GRAVITY 1.021; UROBILINOGEN,URINE NEGATIVE mg/dL (<2.0)
--- NOTE | 2019-05-30 11:05 | RADIOLOGY REPORT (SQ) ---
EXAM DESCRIPTION: CHEST SINGLE VIEW COMPLETED DATE/TIME: 05/30/2019 10:25 am REASON FOR STUDY: cp COMPARISON: 04/05/2018 EXAM PARAMETERS: NUMBER OF VIEWS: One view. TECHNIQUE: Single frontal radiographic view of the chest acquired. RADIATION DOSE: NA LIMITATIONS: None. FINDINGS: LUNGS AND PLEURA: Small left pleural effusion. Right lung is clear. MEDIASTINUM AND HILAR STRUCTURES: No masses. Contour normal. HEART AND VASCULAR STRUCTURES: Heart enlarged. Vascular congestion. BONES: No acute findings. HARDWARE: None in the chest. OTHER: No other significant finding. IMPRESSION: Mild congestive heart failure. Left pleural effusion. TECHNICAL DOCUMENTATION: JOB ID: [id number] [employer]- All Rights Reserved Reading location - IP/workstation name: [email or web address]
--- NOTE | 2019-05-30 13:44 | RADIOLOGY REPORT (SQ) ---
EXAM DESCRIPTION: U/S ABDOMEN LIMITED W/O DOP COMPLETED DATE/TIME: 05/30/2019 1:03 pm REASON FOR STUDY: elevated bili, ongoing gerd COMPARISON: None. TECHNIQUE: Dynamic and static grayscale images acquired of the abdomen and recorded on PACS. Additio nal selected color Doppler and spectral images recorded. LIMITATIONS: None. FINDINGS: PANCREAS: Limited visualization. no masses seen LIVER: Normal size Echo texture normal. No focal masses. LIVER VASCULATURE: Normal directional flow of the main portal vein and hepatic veins. GALLBLADDER: Gallstones. Gallbladder wall measures 4.5 mm. ULTRASOUND-DETECTED NEW'S SIGN: Negative. INTRAHEPATIC DUCTS AND COMMON DUCT: CBD and intrahepatic ducts normal caliber. No filling defects. INFERIOR VENA CAVA: Normal flow. AORTA: No aneurysm. RIGHT KIDNEY: 9.6 cm. Normal echogenicity. No solid or suspicious masses. No hydronephrosis. No calcifications. PERITONEAL AND RIGHT PLEURAL SPACE: No ascites or effusions. OTHER: No other significant findings. IMPRESSION: Cholelithiasis. Gallbladder wall thickening may indicate cholecystitis. TECHNICAL DOCUMENTATION: JOB ID: [id number]- All Rights Reserved Reading location - IP/workstation name: [email or web address]
[2019-05-30] MEDS ORDERED: CEFTRIAXONE 1 GM/D5W RTU 50 ML IV ONE (14:46)
[2019-05-30] MEDS ORDERED: PIPERACILLIN/TAZOBACTAM 3.375 GM VIAL IV ONE (14:58)
[2019-05-30] MEDS ORDERED: IPRATROPIUM/ALBUTEROL 0.5-2.5 MG/3 ML AMPUL NEB PRN (15:26)
[2019-05-30] MEDS ORDERED: ONDANSETRON HCL INJ/PF 4 MG/2 ML SDV IV PRN (15:26)
[2019-05-30] MEDS ORDERED: ACETAMINOPHEN 325 MG TABLET PO PRN (15:26)
[2019-05-30] MEDS ORDERED: PROMETHAZINE HCL INJ 25 MG/1 ML VIAL IV PRN (15:26)
--- NOTE | 2019-05-30 16:06 | PDOC H&P ---
History of Present Illness Admission Date/PCP: JUDY HINOJOSA History of Present Illness: BELIA CHAVEZ is a 89 year old female past medical history of of ESRD on HD Thursday//Thursday, hypothyroidism, GERD, COPD, JEWELL on CPAP, hypertension, and hyperlipidemia presenting to the ED for epigastrium/chest pain and belching. This started about 5:00 this morning. She states the burps are associated with substernal aching chest pain radiating to her back, as well as feeling gasy and has been passing gas without any pain. She denies any trouble breathing however be hypoxic and tachypneic on admission. Also stating that she has been having chills since this morning however denies any cough, abdominal pain, headache, vomiting, constipation or any diarrhea. Physician Relations Specialist Dr. Ferreira and patient is stating that he is adherent with her dialysis and medications. She still makes a small amount of urine. In ED was noted to have elevated T bili and alkaline phosphatase and right upper quadrant ultrasound was positive for cholelithiasis with gallbladder wall thickening, concern was raised for possible acute cholecystitis, surgery was consulted and they recommended for patient to be admitted for observation and they will follow her for possible surgical intervention. Hospitalist was consulted for admission. Past Medical History Cardiac Medical History: Reports: Atrial Fibrillation, Congestive Heart Failure, Myocardial Infarction - [place] BACK 03/2018, Hyperlipidema, Hypertension Denies: Coronary Artery Disease Pulmonary Medical History: Reports: Bronchitis, Pneumonia, Respiratory Failure, Sleep Apnea Denies: Asthma, Chronic Obstructive Pulmonary Disease (COPD), Tuberculosis Neurological Medical History: Denies: Seizures Endocrine Medical History: Reports: Hypothyroidism Renal/ Medical History: Reports: End Stage Renal Disease GI Medical History: Reports: Gastroesophageal Reflux Disease Musculoskeltal Medical History: Reports: Arthritis Psychiatric Medical History: Denies: Dementia, Depression Hematology: Denies: Anemia Past Surgical History Past Surgical History: Reports: Hysterectomy, Orthopedic Surgery - bunion Denies: Pacemaker Social History Smoking Status: Former Smoker Electronic Cigarette use?: No Frequency of Alcohol Use: None Hx Recreational Drug Use: No Drugs: None Hx Prescription Drug Abuse: No Family History Family History: Hypertension Parental Family History Reviewed: Yes Children Family History Reviewed: Yes Sibling(s) Family History Reviewed.: Yes Medication/Allergy Home Medications: Levothyroxine Sodium 50 mcg PO Q6AM 07/17/15 Warfarin Sodium 5 mg PO WEFR@2200 07/17/15 Hydralazine HCl 25 mg PO Q12 09/14/15 Guaifenesin [Mucinex] 1,200 mg PO Q12 12/15/16 Magnesium Oxide [Mag-Ox 400 mg Tablet] 400 mg PO BID 04/06/18 Warfarin Sodium [Coumadin 3 mg Tablet] 3 mg PO SUMOTUTHSA@0 04/06/18 Atorvastatin Calcium [Lipitor 40 mg Tablet] 40 mg PO QHS 05/30/19 B Complex W-C No.20/Folic Acid [Renal Caps Softgel] 1 mg PO DAILY 05/30/19 Furosemide [Lasix 40 mg Tablet] 40 mg PO DAILY 05/30/19 Omeprazole 20 mg PO DAILY 05/30/19 Allergies/Adverse Reactions: amlodipine Adverse Reaction (Mild, Verified 05/30/19 09:19) Dizziness Physical Exam Vital Signs: Temp Pulse Resp BP Pulse Ox 98 F 78 25 H 120/63 93 05/30/19 09:14 05/30/19 09:14 05/30/19 13:01 05/30/19 13:01 05/30/19 13:01 Intake & Output 05/29/19 05/30/19 05/31/19 06:59 06:59 06:59 Weight 81.6 kg General appearance: PRESENT: obese Head exam: PRESENT: atraumatic, normocephalic Respiratory exam: PRESENT: clear to auscultation patricia. ABSENT: rales, rhonchi, wheezes Cardiovascular exam: PRESENT: irregular rhythm. ABSENT: diastolic murmur, rubs, systolic murmur GI/Abdominal exam: PRESENT: normal bowel sounds, soft. ABSENT: distended, guarding, mass, organolmegaly, rebound, tenderness Neurological exam: PRESENT: alert, awake, oriented to person, oriented to place, oriented to time, oriented to situation, CN II-XII grossly intact. ABSENT: motor sensory deficit Skin exam: PRESENT: dry, intact, warm. ABSENT: cyanosis, rash Results Laboratory Results: 05/30/19 09:32 05/30/19 09:32 05/30/19 05/30/19 05/30/19 09:32 09:32 10:33 WBC 10.4 RBC 3.22 L Hgb 10.5 L Hct 31.2 L MCV 97 MCH 32.5 MCHC 33.5 RDW 16.5 H Plt Count 211 Seg Neutrophils % 84.8 H Sodium 140.5 Potassium 4.0 Chloride 98 Carbon Dioxide 23 Anion Gap 20 H BUN 38 H Creatinine 6.06 H Est GFR ( Amer) 8 L Glucose 120 H Calcium 10.1 Total Bilirubin 1.8 H AST 33 Alkaline Phosphatase 155 H Total Protein 8.4 H Albumin 4.9 Lipase 110.6 Urine Color YELLOW Urine Appearance SLIGHTLY-CLOUDY Urine pH 5.0 Ur Specific [place] 1.021 Urine Protein 100 H Urine Glucose (UA) NEGATIVE Urine Ketones NEGATIVE Urine Blood NEGATIVE Urine Nitrite NEGATIVE Ur Leukocyte Esterase MODERATE H Urine WBC (Auto) 34 Urine RBC (Auto) 3 05/30/19 05/30/19 09:32 13:30 Troponin I 0.030 0.028 Impressions: Chest X-Ray 05/30/19 09:44 IMPRESSION: Mild congestive heart failure. Left pleural effusion. Abdomen Ultrasound 05/30/19 11:29 IMPRESSION: Cholelithiasis. Gallbladder wall thickening may indicate cholecystitis. Assessment and Plan - Diagnosis (1) Cholecystitis Is this a current diagnosis for this admission?: Yes Plan: Elevated T bili and alkaline phosphatase. Gallbladder wall thickening on RUQ ultrasound. No significant leukocytosis. Leonardo sign negative. Admit to telemetry, empiric IV antibiotics, n.p.o., surgery consult for possible cholecystectomy. (2) Acute respiratory failure with hypoxia Is this a current diagnosis for this admission?: Yes Plan: Likely due to COPD exacerbation complicated by ESRD and pulmonary hypertension. Admit to telemetry, IV steroids, duo nebs, supplemental oxygen, PRN BiPAP, LMA, LABA, flutter valve and incentive spirometry. (3) COPD exacerbation Is this a current diagnosis for this admission?: Yes Plan: As per #2. (4) JEWELL (obstructive sleep apnea) Is this a current diagnosis for this admission?: Yes Plan: Nocturnal CPAP. Outpatient PCP and pulmonology follow-up. (5) Chronic atrial fibrillation Is this a current diagnosis for this admission?: Yes Plan: Chronic persistent atrial fibrillation. Anticoagulated with Coumadin. Controlled. Restart home meds. Restart Coumadin INR goal to 2.5. Monitor for bleeding. (6) End stage renal disease on dialysis Is this a current diagnosis for this admission?: Yes Plan: On hemodialysis TTS. Physician Relations Specialist Dr. Ferreira. Monitor volume status and electrolytes replace as needed. Consult nephrology for continuation of hemodialysis. (7) GERD (gastroesophageal reflux disease) Qualifiers: Esophagitis presence: esophagitis presence not specified Qualified Code(s): K21.9 - Gastro-esophageal reflux disease without esophagitis Is this a current diagnosis for this admission?: Yes Plan: Start home meds. (8) HTN (hypertension) Qualifiers: Hypertension type: essential hypertension Qualified Code(s): I10 - Essential (primary) hypertension Is this a current diagnosis for this admission?: Yes Plan: Restart home meds. (9) Hypothyroidism Qualifiers: Hypothyroidism type: unspecified Qualified Code(s): E03.9 - Hypothyroidism, unspecified Is this a current diagnosis for this admission?: Yes Plan: Start home meds. (10) Elevated troponin Is this a current diagnosis for this admission?: Yes Plan: In the setting of end-stage renal disease and A. fib. Patient complaining of substernal pleuritic chest pain worse with belching. She has tenderness to palpation over the sternal area. Troponin 0.03, 0.028. EKG no acute changes. Admit to telemetry, antiplatelets, statin, trend troponins.
[2019-05-30] MEDS: METOCLOPRAMIDE HCL 10 MG TABLET PO SCH ×2 (16:24→21:32)
[2019-05-30] MEDS: OXYCODONE-ACETAMINOPHEN 5-325 MG TABLET PO PRN ×2 (16:24→21:33)
[2019-05-30] MEDS: PANTOPRAZOLE SODIUM 40 MG TABLET.DR PO SCH (16:24)
[2019-05-30] MEDS: DEXTROSE 5%-NORMAL SALINE 1,000 ML IV PRN (16:26)
[2019-05-30 16:42] LABS: HEMATOCRIT 30.1 % (36.0-47.0); MEAN CORPUSCULAR HEMOGLOBIN 31.5 pg (27.0-33.4); MEAN CORPUSCULAR HGB CONC 33.2 g/dL (32.0-36.0); MEAN CORPUSCULAR VOLUME 95 fl (80-97); PLATELET COUNT 225 10^3/uL (150-450); RED BLOOD COUNT 3.17 10^6/uL (3.72-5.28); RED CELL DISTRIBUTION WIDTH 16.4 % (11.5-14.0); WHITE BLOOD COUNT 12.5 10^3/uL (4.0-10.5)
[2019-05-30] MEDS: DOCUSATE SODIUM 100 MG CAPSULE PO SCH (17:27)
[2019-05-30] MEDS: MAGNESIUM OXIDE 400 MG TABLET PO SCH (17:27)
--- NOTE | 2019-05-30 17:59 | PDOC CONSULTATION ---
Consultation Consult Date: 05/30/19 Attending physician:: MIKHAIL MARIE Provider Consulted: AICHA LEA Consult reason:: Cholecystitis History of Present Illness Admission Date/PCP: 05/30/19 15:54 JUYD HINOJOSA History of Present Illness: BELIA CHAVEZ is a 89 year old female Presents emergency department via ground rescue complaining of acute onset 4:00 this morning of belching. She denies abdominal pain but on further questioning reports she had some back pain radiating to her right shoulder blade. Patient was evaluated emergency department where she had a gallbladder ultrasound which revealed gallstones and thickened gallbladder wall. Surgery was consulted. She was advised admission to the internal medicine service because of her multiple comorbidities. According to the patient she has no previous history of gastrointestinal problems. She denies family history of gastrointestinal malignancies. She denies constipation. She lives with her sister and [id number] and states very. Local medical doctor is Nasima Arechiga. Patient has remained hemodynamically stable with no evidence of sepsis. Past Medical History Past Medical History: Pharmacologic anticoagulation on Coumadin for years; Thursday hemodialysis; home O2 BiPAP Cardiac Medical History: Reports: Atrial Fibrillation, Congestive Heart Failure, Myocardial Infarction - [place] BACK 03/2018, Hyperlipidema, Hypertension Denies: Coronary Artery Disease Pulmonary Medical History: Reports: Bronchitis, Pneumonia, Respiratory Failure, Sleep Apnea Denies: Asthma, Chronic Obstructive Pulmonary Disease (COPD), Tuberculosis Neurological Medical History: Denies: Seizures Endocrine Medical History: Reports: Hypothyroidism Renal/ Medical History: Reports: End Stage Renal Disease GI Medical History: Reports: Gastroesophageal Reflux Disease Musculoskeltal Medical History: Reports: Arthritis Psychiatric Medical History: Denies: Dementia, Depression Hematology: Denies: Anemia Past Surgical History Past Surgical History: Patient denies gastrointestinal surgery. Has had colonoscopy in the remote past. Past Surgical History: Reports: Hysterectomy, Orthopedic Surgery - bunion Denies: Pacemaker Social History Information Source: Patient Smoking Status: Former Smoker Electronic Cigarette use?: No Frequency of Alcohol Use: Rare Hx Recreational Drug Use: No Drugs: None Hx Prescription Drug Abuse: No Family History Family History: None, Hypertension Parental Family History Reviewed: No Children Family History Reviewed: No Sibling(s) Family History Reviewed.: No Medication/Allergy Home Medications: Levothyroxine Sodium 50 mcg PO Q6AM 07/17/15 Warfarin Sodium 5 mg PO WE@2200 07/17/15 Hydralazine HCl 25 mg PO Q12HP PRN 09/14/15 Guaifenesin [Mucinex] 1,200 mg PO Q12 12/15/16 Magnesium Oxide [Mag-Ox 400 mg Tablet] 400 mg PO BID 04/06/18 Warfarin Sodium [Coumadin 3 mg Tablet] 3 mg PO SUMOTUTHFRSA@2200 04/06/18 Atorvastatin Calcium [Lipitor 40 mg Tablet] 40 mg PO QHS 05/30/19 B Complex W-C No.20/Folic Acid [Renal Caps Softgel] 1 mg PO DAILY 05/30/19 Fluticasone Propionate [Flonase Nasal [place] 50 Mcg/[place] 16 gm] 1 spray NASL DAILY 05/30/19 Furosemide [Lasix 40 mg Tablet] 40 mg PO SUMOWEFR@1000 05/30/19 Loratadine [Claritin 10 mg Tablet] 10 mg PO DAILY 05/30/19 Omeprazole 20 mg PO BID 05/30/19 Allergies/Adverse Reactions: amlodipine Adverse Reaction (Mild, Verified 05/30/19 09:19) Dizziness Review of Systems ROS unobtainable: Due to mental status Constitutional: PRESENT: as per HPI Cardiovascular: PRESENT: other - History of congestive heart failure, left pleural effusion; last echocardiogram a month ago with Dr. Barnes results pending Gastrointestinal: PRESENT: as per HPI Musculoskeletal: PRESENT: other - Patient has chronic musculoskeletal pain, arthritis, history of injections to her knees hips and shoulders Hematologic/Lymphatic: PRESENT: easy bruising Physical Exam Vital Signs: Temp Pulse Resp BP Pulse Ox 99.3 F 90 20 104/47 L 91 L 05/30/19 17:32 05/30/19 17:32 05/30/19 17:32 05/30/19 17:32 05/30/19 17:32 Intake & Output 05/29/19 05/30/19 05/31/19 06:59 06:59 06:59 Intake Total 23 Balance 23 Weight 78.6 kg General appearance: PRESENT: mild distress Head exam: PRESENT: normocephalic Eye exam: PRESENT: EOMI Mouth exam: PRESENT: dry mucosa, other - Very thin skin Neck exam: PRESENT: tenderness - Posterior cervical spine Respiratory exam: PRESENT: other - Diminished breath sounds left side Cardiovascular exam: PRESENT: other - Atrial fibrillation with controlled ventricular response GI/Abdominal exam: PRESENT: diminished bowel sounds - Minimal if any right upper quadrant tenderness, no peritoneal signs no rigidity no guarding, no organomegaly. Rectal exam: PRESENT: deferred Extremities exam: PRESENT: other - Range of motion limited due to chronic arthritides Musculoskeletal exam: PRESENT: other - Not ambulating today Neurological exam: PRESENT: oriented to person, oriented to place, oriented to time, oriented to situation Psychiatric exam: PRESENT: appropriate affect Results Laboratory Results: 05/30/19 16:19 05/30/19 09:32 05/30/19 05/30/19 05/30/19 09:32 09:32 10:33 WBC 10.4 RBC 3.22 L Hgb 10.5 L Hct 31.2 L MCV 97 MCH 32.5 MCHC 33.5 RDW 16.5 H Plt Count 211 Seg Neutrophils % 84.8 H Sodium 140.5 Potassium 4.0 Chloride 98 Carbon Dioxide 23 Anion Gap 20 H BUN 38 H Creatinine 6.06 H Est GFR ( Amer) 8 L Glucose 120 H Calcium 10.1 Total Bilirubin 1.8 H AST 33 Alkaline Phosphatase 155 H Total Protein 8.4 H Albumin 4.9 Lipase 110.6 Urine Color YELLOW Urine Appearance SLIGHTLY-CLOUDY Urine pH 5.0 Ur Specific [place] 1.021 Urine Protein 100 H Urine Glucose (UA) NEGATIVE Urine Ketones NEGATIVE Urine Blood NEGATIVE Urine Nitrite NEGATIVE Ur Leukocyte Esterase MODERATE H Urine WBC (Auto) 34 Urine RBC (Auto) 3 05/30/19 16:19 WBC 12.5 H RBC 3.17 L Hgb 10.0 L Hct 30.1 L MCV 95 MCH 31.5 MCHC 33.2 RDW 16.4 H Plt Count 225 Seg Neutrophils % Sodium Potassium Chloride Carbon Dioxide Anion Gap BUN Creatinine Est GFR ( Amer) Glucose Calcium Total Bilirubin AST Alkaline Phosphatase Total Protein Albumin Lipase Urine Color Urine Appearance Urine pH Ur Specific [place] Urine Protein Urine Glucose (UA) Urine Ketones Urine Blood Urine Nitrite Ur Leukocyte Esterase Urine WBC (Auto) Urine RBC (Auto) 05/30/19 05/30/19 09:32 13:30 Troponin I 0.030 0.028 Impressions: Chest X-Ray 05/30/19 09:44 IMPRESSION: Mild congestive heart failure. Left pleural effusion. Abdomen Ultrasound 05/30/19 11:29 IMPRESSION: Cholelithiasis. Gallbladder wall thickening may indicate cholecystitis. Assessment & Plan - Diagnosis (1) Cholecystitis Is this a current diagnosis for this admission?: Yes Plan: Impression: Cholelithiasis with cholecystitis, elevated total bilirubin: Patient without peritonitis on physical exam; no evidence of sepsis: Hemodynamically stable ;patient does not require operation tonight Recommendations: 1. Admit to medicine service, pain management, IV fluids, n.p.o. status, IV access. 2. Discussed advanced directives with patient. She is a full code currently. Also obtain past medical records regarding cardiovascular history, echocardiogram and ejection fraction etc. to assess patient's capacity to undergo general anesthesia. With multiple comorbidities, including history of congestive heart failure, patient at moderate to high risk of cardiovascular complications. 3. I discussed management options with patient including nonoperative management, cholecystostomy tube, and cholecystectomy. There is no indication to intervene tonight; recommend obtaining the above information, then making decision with patient and hospitalist service weighing in. (2) On Coumadin for atrial fibrillation Is this a current diagnosis for this admission?: Yes (3) Belching Is this a current diagnosis for this admission?: Yes (4) Obstructive sleep apnea Is this a current diagnosis for this admission?: Yes (5) Osteoarthritis Is this a current diagnosis for this admission?: Yes (6) End stage renal disease on dialysis Is this a current diagnosis for this admission?: Yes - Time Time Spent: 30 to 50 Minutes Smoking Cessation Education: over 10 minutes Medications reviewed and adjusted accordingly: Yes - Inpatient Certification Based on my medical assessment, after consideration of the patient's comorbidities, presenting symptoms, or acuity I expect that the services needed warrant INPATIENT care.: Yes I certify that my determination is in accordance with my understanding of Medicare's requirements for reasonable and necessary INPATIENT services [42 CFR 412.3e].: Yes Medical Necessity: Need for Pain Control, Need for IV Antibiotics, Need for Surgery
[2019-05-30] MEDS ORDERED: PIPERACILLIN SODIUM/TAZOBACTAM 3.375 GM in NORMAL SALINE 100 ML IV SCH (18:00)
[2019-05-30] MEDS: PIPERACILLIN SODIUM/TAZOBACTAM 3.375 GM in NORMAL SALINE 100 ML IV SCH (21:31)
[2019-05-30] MEDS: ATORVASTATIN CALCIUM 40 MG TABLET PO SCH (21:32)
[2019-05-30] MEDS: GUAIFENESIN 600 MG TABLET.SA PO SCH (21:32)
[2019-05-30] MEDS ORDERED: WARFARIN SODIUM 3 MG TABLET PO SCH (22:00)
[2019-05-30] MEDS ORDERED: (PENDING PHARMACY ID) (Warfarin Sodium 3 MG) PO SCH ×2 (22:00)
[2019-05-30] MEDS ORDERED: HEPARIN SOD (PORCINE) 5,000 UNIT/ML 1 ML VIAL SUBCUT SCH (22:00)
--- NOTE | 2019-05-31 00:40 | EKG REPORT ---
SEVERITY:- ABNORMAL ECG - ATRIAL FIBRILLATION : Confirmed by: Vita Gaines 31-May-2019 00:39:18
[2019-05-31] MEDS: OXYCODONE-ACETAMINOPHEN 5-325 MG TABLET PO PRN ×5 (01:35→21:48)
[2019-05-31] MEDS: PIPERACILLIN SODIUM/TAZOBACTAM 3.375 GM in NORMAL SALINE 100 ML IV SCH ×2 (03:25→11:06)
[2019-05-31] MEDS: LEVOTHYROXINE SODIUM 0.025 MG TABLET PO SCH (06:24)
[2019-05-31] MEDS: PANTOPRAZOLE SODIUM 40 MG TABLET.DR PO SCH ×2 (06:24→17:13)
[2019-05-31 07:38] LABS: INTERNATIONAL RATION (INR) 3.84; PROTHROMBIN TIME 38.7 SEC (11.4-15.4)
[2019-05-31 07:39] LABS: ABSOLUTE BASOPHILS # (AUTO) 0.1 10^3/uL (0.0-0.2); ABSOLUTE LYMPHOCYTES (AUTO) 0.9 10^3/uL (0.5-4.7); ABSOLUTE NEUT (AUTO) 8.5 10^3/uL (1.7-8.2); BASOPHILS % (AUTO) 0.6 % (0-2); EOSINOPHILS % (AUTO) 0.3 % (0-6); HEMATOCRIT 27.1 % (36.0-47.0); HEMOGLOBIN 9.2 g/dL (12.0-15.5); LYMPHOCYTES % (AUTO) 8.9 % (13-45); MEAN CORPUSCULAR HEMOGLOBIN 32.8 pg (27.0-33.4); MEAN CORPUSCULAR HGB CONC 34.1 g/dL (32.0-36.0); MEAN CORPUSCULAR VOLUME 96 fl (80-97); MONOCYTES % (AUTO) 9.8 % (3-13); PLATELET COUNT 195 10^3/uL (150-450); RED BLOOD COUNT 2.82 10^6/uL (3.72-5.28); RED CELL DISTRIBUTION WIDTH 16.4 % (11.5-14.0); SEGMENTED NEUTROPHILS % (AUTO) 80.4 % (42-78); TOTAL CELLS COUNTED % (AUTO) 100 %; WHITE BLOOD COUNT 10.5 10^3/uL (4.0-10.5)
[2019-05-31] MEDS: METOCLOPRAMIDE HCL 10 MG TABLET PO SCH ×4 (07:42→21:47)
[2019-05-31 07:58] LABS: ALBUMIN 4.1 g/dL (3.5-5.0); ALKALINE PHOSPHATASE 108 U/L (38-126); ASPARTATE AMINO TRANSFERASE 25 U/L (14-36); BILIRUBIN,DIRECT 1.7 mg/dL (0.0-0.4); BILIRUBIN,TOTAL 1.8 mg/dL (0.2-1.3); CALCIUM 9.6 mg/dL (8.4-10.2); CARBON DIOXIDE 19 mmol/L (22-30); GLUCOSE 129 mg/dL (75-110); POTASSIUM 4.8 mmol/L (3.6-5.0); TOTAL PROTEIN 6.9 g/dL (6.3-8.2)
[2019-05-31 08:12] LABS: CHLORIDE 97 mmol/L (98-107)
[2019-05-31 08:16] LABS: ANION GAP 25 (5-19); BLOOD UREA NITROGEN 65 mg/dL (7-20)
[2019-05-31] MEDS ORDERED: EPOETIN ALFA-EPBX 5,000 UNITS (ESRD) in SYRINGE IV PRN ×3 (10:13)
[2019-05-31] MEDS: MAGNESIUM OXIDE 400 MG TABLET PO SCH ×2 (11:07→17:13)
[2019-05-31] MEDS: DOCUSATE SODIUM 100 MG CAPSULE PO SCH ×2 (11:07→17:13)
[2019-05-31] MEDS: GUAIFENESIN 600 MG TABLET.SA PO SCH ×2 (11:07→21:47)
[2019-05-31] MEDS: FUROSEMIDE 40 MG TABLET PO SCH (11:07)
[2019-05-31] MEDS ORDERED: ALBUTEROL SULFATE 0.083% NEB 2.5 MG/3 ML AMPUL NEB PRN (13:37)
[2019-05-31] MEDS ORDERED: HYDRALAZINE HCL INJ/PF 20 MG/1 ML SDV IV PRN (13:46)
--- NOTE | 2019-05-31 15:23 | PDOC CONSULTATION ---
Consultation Consult Date: 05/31/19 Provider Consulted: Daphne LOPEZ History of Present Illness Admission Date/PCP: 05/30/19 15:54 JUDY HINOJOSA History of Present Illness: BELIA CHAVEZ is a 89 year old female past medical history of of ESRD on HD TTS, hypothyroidism, GERD, COPD, JEWELL on CPAP, hypertension, and hyperlipidemia. Also had an incident of CAD that was medically managed. She came to the ED for ep igastrium/chest pain and belching that started around 5:00 this morning. She was burping with substernal aching chest pain that was radiating to her back. She had also been more gasy and has been passing gas without any pain. She has only minor SOB which she attributes to how much extra fluid that she had taken in since Thursday. In the ED she was found to be hypoxic and tachypneic. She had right upper quadrant ultrasound which was positive for cholelithiasis with gallbladder wall thickening, concern was raised for possible acute cholecystitis. She was admitted and surgery was consulted. According to surgery she is going to medically managed due to the increased risk for a poor out come due to her other comorbidities. She was started on Zosyn at 2.25g q12. On dialysis she is doing well. She claim that the chest pain is gone and she feels less gasy. She is tolerating dialysis well with stable vitals. Looking to remove 3 to 4L. She has been having some chills but denies fevers, cough, abdominal pain, headache, vomiting, constipation or any diarrhea. Past Medical History Cardiac Medical History: Reports: Atrial Fibrillation, Hyperlipidemia, Hy pertension-primary, Myocardial Infarction - [place] BACK 03/2018 Denies: Coronary Artery Disease Pulmonary Medical History: Reports: Bronchitis, Pneumonia, Respiratory Failure, Sleep Apnea Denies: Asthma, Chronic Obstructive Pulmonary Disease (COPD), Tuberculosis Neurological Medical History: Denies: Seizures Endocrine Medical History: Reports: Hypothyroidism Renal/ Medical History: Reports: End Stage Renal Disease GI Medical History: Reports: Gastroesophageal Reflux Disease Musculoskeltal Medical History: Reports: Arthritis Psychiatric Medical History: Denies: Dementia, Depression Past Surgical History Past Surgical History: Reports: Hysterectomy, Orthopedic Surgery - bunion Denies: Pacemaker Social History Smoking Status: Former Smoker Electronic Cigarette use?: No Frequency of Alcohol Use: Rare Hx Recreational Drug Use: No Drugs: None Hx Prescription Drug Abuse: No Family History Family History: Reviewed & Not Pertinent Parental Family History Reviewed: Yes Children Family History Reviewed: Unknown Sibling(s) Family History Reviewed.: Yes Medication/Allergy Home Medications: Levothyroxine Sodium 50 mcg PO Q6AM 07/17/15 Warfarin Sodium 5 mg PO WE@2200 07/17/15 Hydralazine HCl 25 mg PO Q12HP PRN 09/14/15 Guaifenesin [Mucinex] 1,200 mg PO Q12 12/15/16 Magnesium Oxide [Mag-Ox 400 mg Tablet] 400 mg PO BID 04/06/18 Warfarin Sodium [Coumadin 3 mg Tablet] 3 mg PO SUMOTUTHFRSA@2200 04/06/18 Atorvastatin Calcium [Lipitor 40 mg Tablet] 40 mg PO QHS 05/30/19 B Complex W-C No.20/Folic Acid [Renal Caps Softgel] 1 mg PO DAILY 05/30/19 Fluticasone Propionate [Flonase Nasal [place] 50 Mcg/[place] 16 gm] 1 spray NASL DAILY 05/30/19 Furosemide [Lasix 40 mg Tablet] 40 mg PO SUMOWEFR@1000 05/30/19 Loratadine [Claritin 10 mg Tablet] 10 mg PO DAILY 05/30/19 Omeprazole 20 mg PO BID 05/30/19 Allergies/Adverse Reactions: amlodipine Adverse Reaction (Mild, Verified 05/30/19 09:19) Dizziness Review of Systems Constitutional: PRESENT: chills. ABSENT: anorexia, fever(s), weakness Eyes: ABSENT: visual disturbances Cardiovascular: PRESENT: dyspnea on exertion, edema, orthropnea. ABSENT: chest pain Respiratory: PRESENT: dyspnea. ABSENT: sputum Gastrointestinal: PRESENT: abdominal pain. ABSENT: constipation, diarrhea, nausea, vomiting Genitourinary: PRESENT: dysuria Neurological: ABSENT: confusion, focal weakness, numbness, weakness Hematologic/Lymphatic: PRESENT: easy bleeding, easy bruising Physical Exam Vital Signs: Temp Pulse Resp BP Pulse Ox 98.3 F 93 18 112/50 L 92 05/31/19 04:10 05/31/19 07:00 05/31/19 04:10 05/31/19 04:10 05/31/19 04:10 Intake & Output 05/30/19 05/31/19 06/01/19 06:59 06:59 06:59 Intake Total 841 Balance 841 Weight 79.7 kg General appearance: PRESENT: no acute distress, cooperative, well-developed, well-nourished Eye exam: PRESENT: PERRLA. ABSENT: scleral icterus Mouth exam: PRESENT: moist, neck supple. ABSENT: dry mucosa Neck exam: ABSENT: JVD, tracheal deviation Respiratory exam: PRESENT: rales - -bases of the lungs. ABSENT: accessory muscle use, clear to auscultation patricia, rhonchi, wheezes Cardiovascular exam: PRESENT: irregular rhythm, +S1, +S2 GI/Abdominal exam: PRESENT: soft, tenderness Extremities exam: PRESENT: +1 edema. ABSENT: pedal edema, +2 edema Musculoskeletal exam: PRESENT: normal inspection. ABSENT: tenderness Neurological exam: PRESENT: alert, awake, oriented to person, oriented to place, oriented to time, oriented to situation Psychiatric exam: PRESENT: appropriate affect, normal mood Skin exam: PRESENT: dry, intact, warm. ABSENT: cyanosis Results Laboratory Results: 05/31/19 06:39 05/31/19 06:39 05/30/19 05/31/19 05/31/19 16:19 06:39 06:39 WBC 12.5 H 10.5 RBC 3.17 L 2.82 L Hgb 10.0 L 9.2 L Hct 30.1 L 27.1 L MCV 95 96 MCH 31.5 32.8 MCHC 33.2 34.1 RDW 16.4 H 16.4 H Plt Count 225 195 Seg Neutrophils % 80.4 H Sodium 140.5 Potassium 4.8 Chloride 97 L Carbon Dioxide 19 L Anion Gap 25 H BUN 65 H D Creatinine 6.79 H Est GFR ( Amer) 7 L Glucose 129 H Calcium 9.6 Total Bilirubin 1.8 H AST 25 Alkaline Phosphatase 108 Total Protein 6.9 Albumin 4.1 05/30/19 05/30/19 05/30/19 09:32 13:30 19:01 Troponin I 0.030 0.028 0.030 Impressions: Chest X-Ray 05/30/19 09:44 IMPRESSION: Mild congestive heart failure. Left pleural effusion. Abdomen Ultrasound 05/30/19 11:29 IMPRESSION: Cholelithiasis. Gallbladder wall thickening may indicate cholecystitis. Assessment & Plan - Diagnosis (1) End stage renal disease on dialysis Is this a current diagnosis for this admission?: Yes Plan: Patient was seen on dialysis. Labs, orders and medications were reviewed with her treating dialysis nurse. Vitals were stable. Patient denied chest pain but did have some SOB that she had prior to starting dialysis. Removing 3 to 4L as tolerated. (2) Cholecystitis Is this a current diagnosis for this admission?: Yes Plan: per hospitalist and surgery, antibioics look to be dosed to ESRD levels (3) Acute on chronic congestive heart failure Qualifiers: Qualified Code(s): I50.33 - Acute on chronic diastolic (congestive) heart failure Plan: removing 3 to 4L as tolerated today (4) Acute respiratory failure with hypoxia Is this a current diagnosis for this admission?: Yes Plan: looks to be due to excess fluid. Will remove 3 to 4L as tolerated with dialysis (5) COPD (chronic obstructive pulmonary disease) Qualifiers: COPD type: unspecified COPD Qualified Code(s): J44.9 - Chronic obstructive pulmonary disease, unspecified (6) JEWELL (obstructive sleep apnea) Is this a current diagnosis for this admission?: Yes Plan: on cpap
[2019-05-31] MEDS: PIPERACILLIN SODIUM/TAZOBACTAM 2.25 GM in NORMAL SALINE 50 ML IV SCH (18:29)
--- NOTE | 2019-05-31 19:48 | PDOC PROGRESS REPORT ---
Subjective Progress Note for:: 05/31/19 Subjective:: Abdominal pains are gone just complaining of some shoulder pains due to arthritis Reason For Visit: ACUTE CHOLECYSTITIS,UTI,ESRD Physical Exam Vital Signs: Temp Pulse Resp BP Pulse Ox 98.5 F 92 18 122/51 L 91 L 05/31/19 15:28 05/31/19 15:28 05/31/19 15:28 05/31/19 15:28 05/31/19 15:28 Intake & Output 05/30/19 05/31/19 06/01/19 06:59 06:59 06:59 Intake Total 841 0 Output Total 2700 Balance 841 -2700 Weight 79.7 kg Exam: Abdomen is soft and nontender Results Laboratory Results: 05/31/19 06:39 05/31/19 06:39 05/31/19 05/31/19 06:39 06:39 WBC 10.5 RBC 2.82 L Hgb 9.2 L Hct 27.1 L MCV 96 MCH 32.8 MCHC 34.1 RDW 16.4 H Plt Count 195 Seg Neutrophils % 80.4 H Sodium 140.5 Potassium 4.8 Chloride 97 L Carbon Dioxide 19 L Anion Gap 25 H BUN 65 H D Creatinine 6.79 H Est GFR ( Amer) 7 L Glucose 129 H Calcium 9.6 Total Bilirubin 1.8 H AST 25 Alkaline Phosphatase 108 Total Protein 6.9 Albumin 4.1 05/30/19 05/30/19 05/30/19 09:32 13:30 19:01 Troponin I 0.030 0.028 0.030 Impressions: Chest X-Ray 05/30/19 09:44 IMPRESSION: Mild congestive heart failure. Left pleural effusion. Abdomen Ultrasound 05/30/19 11:29 IMPRESSION: Cholelithiasis. Gallbladder wall thickening may indicate cholecystitis. Assessment & Plan - Time Time Spent with patient: 15-24 minutes - Inpatient Certification Medical Necessity: Need for IV Antibiotics, Need for Surgery - Plan Summary Plan Summary: She is high risk for any surgical intervention. Her coags are still abnormal. She had hemodialysis today but pains have subsided and her abdomen. Will check HIDA scan and if it is negative then probably can hold off the doing any intervention at this time. However if it is positive then more than likely she is going to need a percutaneous drainage of gallbladder by IR
[2019-05-31] MEDS: IPRATROPIUM/ALBUTEROL 0.5-2.5 MG/3 ML AMPUL NEB SCH (20:36)
[2019-05-31] MEDS: METHYLPREDNISOLONE INJ 40 MG/1 ML SDV IV SCH (21:48)
[2019-05-31] MEDS: ATORVASTATIN CALCIUM 40 MG TABLET PO SCH (21:48)
[2019-06-01] MEDS: OXYCODONE-ACETAMINOPHEN 5-325 MG TABLET PO PRN ×4 (03:57→23:39)
[2019-06-01] MEDS: LEVOTHYROXINE SODIUM 0.025 MG TABLET PO SCH (05:36)
[2019-06-01] MEDS: PANTOPRAZOLE SODIUM 40 MG TABLET.DR PO SCH ×2 (05:36→18:12)
[2019-06-01] MEDS: PIPERACILLIN SODIUM/TAZOBACTAM 2.25 GM in NORMAL SALINE 50 ML IV SCH (06:14)
[2019-06-01] MEDS: DEXTROSE 5%-NORMAL SALINE 1,000 ML IV PRN (06:14)
[2019-06-01 07:18] LABS: HEMATOCRIT 22.8 % (36.0-47.0); MEAN CORPUSCULAR HEMOGLOBIN 31.9 pg (27.0-33.4); MEAN CORPUSCULAR HGB CONC 33.7 g/dL (32.0-36.0); MEAN CORPUSCULAR VOLUME 95 fl (80-97); PLATELET COUNT 181 10^3/uL (150-450); RED BLOOD COUNT 2.41 10^6/uL (3.72-5.28); WHITE BLOOD COUNT 14.4 10^3/uL (4.0-10.5)
[2019-06-01 07:21] LABS: HEMOGLOBIN 7.7 g/dL (12.0-15.5)
[2019-06-01 07:42] LABS: BLOOD UREA NITROGEN 65 mg/dL (7-20); CALCIUM 9.7 mg/dL (8.4-10.2); CARBON DIOXIDE 24 mmol/L (22-30); CHLORIDE 97 mmol/L (98-107); GLUCOSE 150 mg/dL (75-110); POTASSIUM 4.5 mmol/L (3.6-5.0)
[2019-06-01 07:46] LABS: ANION GAP 20 (5-19)
[2019-06-01] MEDS: IPRATROPIUM/ALBUTEROL 0.5-2.5 MG/3 ML AMPUL NEB SCH ×2 (08:07→20:56)
[2019-06-01 09:21] LABS: PROTHROMBIN TIME 71.8 SEC (11.4-15.4)
[2019-06-01 09:22] LABS: INTERNATIONAL RATION (INR) 8.31
[2019-06-01] MEDS ORDERED: (PENDING PHARMACY ID) (B Complex W-C No.20/Folic Acid [Renal Caps Softgel] 1 MG) PO SCH (10:00)
[2019-06-01] MEDS: DOCUSATE SODIUM 100 MG CAPSULE PO SCH ×2 (10:08→18:13)
[2019-06-01] MEDS: FLUTICASONE NASAL SPRAY 50 MCG/SPRY 120 SPRAY/16 GM NASL SCH (10:09)
[2019-06-01] MEDS: VITAMIN B COMPLEX TABLET PO SCH (10:10)
[2019-06-01] MEDS: GUAIFENESIN 600 MG TABLET.SA PO SCH ×2 (10:10→21:46)
[2019-06-01] MEDS: METHYLPREDNISOLONE INJ 40 MG/1 ML SDV IV SCH (10:10)
[2019-06-01] MEDS: MAGNESIUM OXIDE 400 MG TABLET PO SCH ×2 (10:10→18:12)
[2019-06-01] MEDS: METOCLOPRAMIDE HCL 10 MG TABLET PO SCH ×4 (10:11→21:46)
[2019-06-01] MEDS: FUROSEMIDE 40 MG TABLET PO SCH (10:11)
[2019-06-01] MEDS: ASPIRIN 81 MG TABLET, CHEWABLE PO SCH (10:11)
[2019-06-01] MEDS: LORATADINE 10 MG TABLET PO SCH (10:11)
[2019-06-01] MEDS ORDERED: PHYTONADIONE 5 MG TABLET PO ONE (10:30)
--- NOTE | 2019-06-01 12:26 | PDOC PROGRESS REPORT ---
Subjective Progress Note for:: 06/01/19 Reason For Visit: Patient seen today. She is looking very comfortable. She denies any more abdominal pains or nausea or vomiting. She is obviously feeling hungry as she has been n.p.o. since yesterday. She wants to eat. However she knows that she is scheduled to do a HIDA scan later today. She underwent dialysis yesterday without any issues. Labs and medications were reviewed. Physical Exam Vital Signs: Temp Pulse Resp BP Pulse Ox 97.3 F 75 16 114/52 L 96 06/01/19 08:00 06/01/19 08:08 06/01/19 08:08 06/01/19 08:00 06/01/19 08:08 Intake & Output 05/31/19 06/01/19 06/02/19 06:59 06:59 06:59 Intake Total 841 565 Output Total 2700 Balance 841 -2135 Weight 79.7 kg 75.3 kg General appearance: PRESENT: no acute distress Respiratory exam: PRESENT: clear to auscultation patricia. ABSENT: crackles Cardiovascular exam: PRESENT: irregular rhythm, +S1, +S2 GI/Abdominal exam: PRESENT: normal bowel sounds, soft. ABSENT: organomegaly, tenderness Neurological exam: PRESENT: alert, awake, oriented to person, oriented to place Skin exam: ABSENT: cyanosis, erythema, mottled, rash Results Laboratory Results: 06/01/19 06:47 06/01/19 06:47 06/01/19 06/01/19 06:47 06:47 WBC 14.4 H RBC 2.41 L Hgb 7.7 L Hct 22.8 L MCV 95 MCH 31.9 MCHC 33.7 RDW 16.0 H Plt Count 181 Sodium 141.4 Potassium 4.5 Chloride 97 L Carbon Dioxide 24 Anion Gap 20 H BUN 65 H Creatinine 5.32 H Est GFR ( Amer) 9 L Glucose 150 H Calcium 9.7 05/30/19 10:33 Catheterized Urine Urine Culture - Final NO GROWTH 2 DAYS 05/30/19 05/30/19 05/30/19 09:32 13:30 19:01 Troponin I 0.030 0.028 0.030 Impressions: Chest X-Ray 05/30/19 09:44 IMPRESSION: Mild congestive heart failure. Left pleural effusion. Abdomen Ultrasound 05/30/19 11:29 IMPRESSION: Cholelithiasis. Gallbladder wall thickening may indicate cholecystitis. Assessment & Plan - Diagnosis (1) Cholecystitis Is this a current diagnosis for this admission?: Yes Plan: Patient currently asymptomatic. Being managed by surgeons on a conservative basis given her high risk. Patient currently hungry and wants to eat. Patient awaiting HIDA scan and further management by surgeons following that. (2) End stage renal disease on dialysis Is this a current diagnosis for this admission?: Yes Plan: Patient underwent an uneventful dialysis yesterday. She does not need any dialysis today. We will see how she does tomorrow. She still has small amount of residual renal functions left. (3) On Coumadin for atrial fibrillation Is this a current diagnosis for this admission?: Yes (4) HTN (hypertension) Qualifiers: Hypertension type: essential hypertension Qualified Code(s): I10 - Essential (primary) hypertension Is this a current diagnosis for this admission?: Yes Plan: Controlled. Monitor. (5) Anemia Plan: Patient already on erythropoietin. Get iron studies in the morning. Monitor.
--- NOTE | 2019-06-01 15:51 | RADIOLOGY REPORT (SQ) ---
EXAM DESCRIPTION: NM HIDA SCAN COMPLETED DATE/TIME: 06/01/2019 1:53 pm REASON FOR STUDY: GI PAIN R10.84 GENERALIZED ABDOMINAL PAIN I12.0 HYP CHR KIDNEY DISEASE W STAGE 5 CHR KIDNEY DISEASE OR COMPARISON: None. RADIONUCLIDE AND DOSE: DOSAGE RADIONUCLIDE: 4.93 millicuries Tc99m Mebrofenin. DOSAGE MORPHINE: Not required. The route of agent administration: Intravenous TECHNIQUE: Serial imaging right upper quadrant up to 60 minutes following injection of radionuclide. Patient imaged AP and Right Lateral. LIMITATIONS: None. FINDINGS: LIVER: Normal visualization without areas of photopenia. INTRA-HEPATIC BILE DUCTS: Temporal visualization normal. No dilatation. COMMON BILE DUCT: Normal without dilatation or delayed visualization. GALLBLADDER: Normal visualization. OTHER: No other significant finding. IMPRESSION: NORMAL STUDY WITHOUT CYSTIC OR COMMON DUCT OBSTRUCTION. TECHNICAL DOCUMENTATION: JOB ID: [id number] [employer]- All Rights Reserved Reading location - IP/workstation name: [facility]
--- NOTE | 2019-06-01 16:17 | PDOC PROGRESS REPORT ---
Subjective Progress Note for:: 05/31/19 Subjective:: The patient is a 89 year old female past medical history of of ESRD on HD Thursday//Thursday, hypothyroidism, GERD, COPD, JEWELL on CPAP, hypertension, and hyperlipidemia admitted 05/30/19 for acute cholecystitis. The patient was seen on morning rounds while in dialysis. She was found resting in bed comfortably on supplemental oxygen by nasal cannula; she is not home O2 dependent. She reports that she is feeling much better today. She denies fever, chills, chest pain, palpitations, dyspnea, orthopnea, cough, abdominal pain, nausea vomiting and diarrhea. She has no questions or concerns at this time. No concerns per nursing. Reason For Visit: ACUTE CHOLECYSTITIS,UTI,ESRD Physical Exam Vital Signs: Temp Pulse Resp BP Pulse Ox 98.3 F 93 18 112/50 L 92 05/31/19 04:10 05/31/19 07:00 05/31/19 04:10 05/31/19 04:10 05/31/19 04:10 Intake & Output 05/30/19 05/31/19 06/01/19 06:59 06:59 06:59 Intake Total 841 Balance 841 Weight 79.7 kg General appearance: PRESENT: no acute distress, cooperative, well-developed, well-nourished Head exam: PRESENT: atraumatic, normocephalic Eye exam: PRESENT: conjunctiva pink, EOMI, PERRLA. ABSENT: scleral icterus Ear exam: PRESENT: normal external ear exam Mouth exam: PRESENT: moist, tongue midline Neck exam: ABSENT: carotid bruit, JVD, lymphadenopathy, thyromegaly Respiratory exam: PRESENT: decreased breath sounds - Bibasilar, symmetrical, unlabored, wheezes, other - Supplemental oxygen via nasal cannula. ABSENT: rales, rhonchi Cardiovascular exam: PRESENT: irregular rhythm, +S1, +S2, systolic murmur. ABSENT: diastolic murmur, rubs Pulses: PRESENT: normal dorsalis pedis pul Vascular exam: PRESENT: normal capillary refill GI/Abdominal exam: PRESENT: normal bowel sounds, soft. ABSENT: distended, guarding, mass, organolmegaly, rebound, tenderness Rectal exam: PRESENT: deferred Extremities exam: PRESENT: full ROM. ABSENT: calf tenderness, clubbing, pedal edema Neurological exam: PRESENT: alert, awake, oriented to person, oriented to place, oriented to time, oriented to situation, CN II-XII grossly intact. ABSENT: motor sensory deficit Psychiatric exam: PRESENT: appropriate affect, normal mood. ABSENT: homicidal ideation, suicidal ideation Skin exam: PRESENT: dry, intact, warm. ABSENT: cyanosis, rash Results Laboratory Results: 05/31/19 06:39 05/31/19 06:39 05/30/19 05/31/19 05/31/19 16:19 06:39 06:39 WBC 12.5 H 10.5 RBC 3.17 L 2.82 L Hgb 10.0 L 9.2 L Hct 30.1 L 27.1 L MCV 95 96 MCH 31.5 32.8 MCHC 33.2 34.1 RDW 16.4 H 16.4 H Plt Count 225 195 Seg Neutrophils % 80.4 H Sodium 140.5 Potassium 4.8 Chloride 97 L Carbon Dioxide 19 L Anion Gap 25 H BUN 65 H D Creatinine 6.79 H Est GFR ( Amer) 7 L Glucose 129 H Calcium 9.6 Total Bilirubin 1.8 H AST 25 Alkaline Phosphatase 108 Total Protein 6.9 Albumin 4.1 05/30/19 05/30/19 05/30/19 09:32 13:30 19:01 Troponin I 0.030 0.028 0.030 Impressions: Chest X-Ray 05/30/19 09:44 IMPRESSION: Mild congestive heart failure. Left pleural effusion. Abdomen Ultrasound 05/30/19 11:29 IMPRESSION: Cholelithiasis. Gallbladder wall thickening may indicate cholecystitis. Assessment and Plan - Diagnosis (1) Cholecystitis Is this a current diagnosis for this admission?: Yes Plan: Elevated T bili and alkaline phosphatase. Gallbladder wall thickening on RUQ ultrasound. No significant leukocytosis. Leonardo sign negative. Admit to telemetry Supratherapeutic INR; Coumadin on hold. Surgery is consulted; advises the patient is not a good surgical candidate. Recommends discussing percutaneous drain placement with interventional radiology. She is empirically placed on IV Zosyn. Analgesics and antiemetics as needed. (2) Acute respiratory failure with hypoxia Is this a current diagnosis for this admission?: Yes Plan: Likely due to COPD exacerbation complicated by ESRD and pulmonary hypertension. Admit to telemetry Low dose IV steroids Scheduled and as needed nebs, duo nebs Supplemental oxygen, PRN BiPAP Flutter valve and incentive spirometry. (3) COPD exacerbation Is this a current diagnosis for this admission?: Yes Plan: As per #2. (4) JEWELL (obstructive sleep apnea) Is this a current diagnosis for this admission?: Yes Plan: Nocturnal CPAP. Outpatient PCP and pulmonology follow-up. (5) On Coumadin for atrial fibrillation Is this a current diagnosis for this admission?: Yes Plan: INR 3.8 Coumadin currently on hold pending Surgical and/or IR interventions. Daily INR. Pharmacy following. (6) Chronic atrial fibrillation Is this a current diagnosis for this admission?: Yes Plan: Chronic persistent atrial fibrillation. Anticoagulated with Coumadin. INR goal to 2.5. Rate controlled without medication (no home meds). Continue to monitor on telemetry. (7) Elevated troponin Is this a current diagnosis for this admission?: Yes Plan: In the setting of end-stage renal disease and A. fib. Patient complained of substernal pleuritic chest pain worse with belching; now resolved per patient. She has tenderness to palpation over the sternal area. Troponin 0.03, 0.028, 0.30. EKG no acute changes. Continue aspirin and atorvastatin. (8) End stage renal disease on dialysis Is this a current diagnosis for this admission?: Yes Plan: Nephrology consulted; dialysis per their expertise. (9) GERD (gastroesophageal reflux disease) Qualifiers: Esophagitis presence: esophagitis presence not specified Qualified Code(s): K21.9 - Gastro-esophageal reflux disease without esophagitis Is this a current diagnosis for this admission?: Yes Plan: Daily PPI (10) HTN (hypertension) Qualifiers: Hypertension type: essential hypertension Qualified Code(s): I10 - Essential (primary) hypertension Is this a current diagnosis for this admission?: Yes Plan: Continue home meds. (11) Hypothyroidism Qualifiers: Hypothyroidism type: unspecified Qualified Code(s): E03.9 - Hypothyroidism, unspecified Is this a current diagnosis for this admission?: Yes Plan: Continue home dose levothyroxine. - Time Time Spent with patient: 25-34 minutes Medications reviewed and adjusted accordingly: Yes Anticipated discharge: Home
--- NOTE | 2019-06-01 16:36 | PDOC PROGRESS REPORT ---
Subjective Progress Note for:: 06/01/19 Subjective:: The patient is a 89 year old female past medical history of of ESRD on HD Thursday//Thursday, hypothyroidism, GERD, COPD, JEWELL on CPAP, hypertension, and hyperlipidemia admitted 05/30/19 for acute cholecystitis. The patient was seen on morning rounds. She was found resting in bed, comfortably, on supplemental oxygen by nasal cannula; she is not home O2 depe ndent. She reports that she is feeling much better today. She denies abdominal discomfort. Only concern is planned HIDA scan this afternoon; patient hopeful to be able to eat soon. She further denies fever, chills, chest pain, palpitations, dyspnea, orthopnea, cough, abdominal pain, nausea, vomiting, and diarrhea. She has no questions or concerns at this time. No concerns per nursing. Reason For Visit: ACUTE CHOLECYSTITIS,UTI,ESRD Physical Exam Vital Signs: Temp Pulse Resp BP Pulse Ox 98.4 F 72 18 110/53 L 98 06/01/19 12:00 06/01/19 14:00 06/01/19 12:00 06/01/19 12:00 06/01/19 12:00 Intake & Output 05/31/19 06/01/19 06/02/19 06:59 06:59 06:59 Intake Total 841 565 Output Total 2700 Balance 841 -2135 Weight 79.7 kg 75.3 kg General appearance: PRESENT: no acute distress, cooperative, obese, well- developed, well-nourished Head exam: PRESENT: atraumatic, normocephalic Eye exam: PRESENT: conjunctiva pink, EOMI, PERRLA. ABSENT: scleral icterus Ear exam: PRESENT: normal external ear exam Mouth exam: PRESENT: moist, tongue midline Respiratory exam: PRESENT: clear to auscultation patricia, symmetrical, unlabored, other - supplemental oxygen via NC. ABSENT: rales, rhonchi, wheezes Cardiovascular exam: PRESENT: irregular rhythm, +S1, +S2, systolic murmur. ABSENT: diastolic murmur, rubs Vascular exam: PRESENT: normal capillary refill GI/Abdominal exam: PRESENT: normal bowel sounds, soft. ABSENT: distended, guarding, mass, organolmegaly, rebound, tenderness Rectal exam: PRESENT: deferred Extremities exam: PRESENT: full ROM. ABSENT: calf tenderness, clubbing, pedal edema Neurological exam: PRESENT: alert, awake, oriented to person, oriented to place, oriented to time, oriented to situation, CN II-XII grossly intact. ABSENT: motor sensory deficit Psychiatric exam: PRESENT: appropriate affect, normal mood. ABSENT: homicidal ideation, suicidal ideation Skin exam: PRESENT: dry, intact, warm. ABSENT: cyanosis, rash Results Laboratory Results: 06/01/19 06:47 06/01/19 06:47 06/01/19 06/01/19 06:47 06:47 WBC 14.4 H RBC 2.41 L Hgb 7.7 L Hct 22.8 L MCV 95 MCH 31.9 MCHC 33.7 RDW 16.0 H Plt Count 181 Sodium 141.4 Potassium 4.5 Chloride 97 L Carbon Dioxide 24 Anion Gap 20 H BUN 65 H Creatinine 5.32 H Est GFR ( Amer) 9 L Glucose 150 H Calcium 9.7 05/30/19 10:33 Catheterized Urine Urine Culture - Final NO GROWTH 2 DAYS 05/30/19 05/30/19 05/30/19 09:32 13:30 19:01 Troponin I 0.030 0.028 0.030 Impressions: Chest X-Ray 05/30/19 09:44 IMPRESSION: Mild congestive heart failure. Left pleural effusion. Abdomen Ultrasound 05/30/19 11:29 IMPRESSION: Cholelithiasis. Gallbladder wall thickening may indicate cholecystitis. Hepatobiliary Scan Nuclear Medicine 05/31/19 00:00 IMPRESSION: NORMAL STUDY WITHOUT CYSTIC OR COMMON DUCT OBSTRUCTION. Assessment and Plan - Diagnosis (1) Cholecystitis Is this a current diagnosis for this admission?: Yes Plan: Elevated T bili and alkaline phosphatase. Gallbladder wall thickening on RUQ ultrasound. No significant leukocytosis. Leonardo sign negative. HIDA scan is negative. Admit to telemetry Supratherapeutic INR; Coumadin on hold. Surgery is consulted; advises the patient is not a good surgical candidate. Discussed with Dr. Evans this morning; if HIDA is nml, patient will not require any further interventions. She was empirically placed on IV Zosyn; have discontinued. Analgesics and antiemetics as needed. Advance to low residue/soft diet as HIDA is negative. (2) Acute respiratory failure with hypoxia Is this a current diagnosis for this admission?: Yes Plan: Improved; lung sounds now clear. Remains on supplemental oxygen. Likely due to COPD exacerbation complicated by ESRD and pulmonary hypertension. Transition to p.o. prednisone. Scheduled and as needed nebs, duo nebs Supplemental oxygen, PRN BiPAP Flutter valve and incentive spirometry. (3) COPD exacerbation Is this a current diagnosis for this admission?: Yes Plan: As per #2. Resume home dose Mucinex. (4) JEWELL (obstructive sleep apnea) Is this a current diagnosis for this admission?: Yes Plan: Nocturnal CPAP. Outpatient PCP and pulmonology follow-up. (5) Chronic atrial fibrillation Is this a current diagnosis for this admission?: Yes Plan: Chronic persistent atrial fibrillation. Anticoagulated with Coumadin. INR goal to 2.5. Rate controlled without medication (no home meds). Continue to monitor on telemetry. (6) Elevated troponin Is this a current diagnosis for this admission?: Yes Plan: In the setting of end-stage renal disease and A. fib. Patient complained of substernal pleuritic chest pain worse with belching; now resolved per patient. She has tenderness to palpation over the sternal area. Troponin 0.03, 0.028, 0.30. EKG no acute changes. Continue aspirin and atorvastatin. (7) End stage renal disease on dialysis Is this a current diagnosis for this admission?: Yes Plan: Nephrology consulted; dialysis per their expertise. (8) GERD (gastroesophageal reflux disease) Qualifiers: Esophagitis presence: esophagitis presence not specified Qualified Code(s): K21.9 - Gastro-esophageal reflux disease without esophagitis Is this a current diagnosis for this admission?: Yes Plan: Daily PPI (9) HTN (hypertension) Qualifiers: Hypertension type: essential hypertension Qualified Code(s): I10 - Essential (primary) hypertension Is this a current diagnosis for this admission?: Yes Plan: Well controlled at present. Continue home dose furosemide. IV hydralazine prn. Cardiac diet. (10) Hypothyroidism Qualifiers: Hypothyroidism type: unspecified Qualified Code(s): E03.9 - Hypothyroidism, unspecified Is this a current diagnosis for this admission?: Yes Plan: Continue home dose levothyroxine. (11) Supratherapeutic INR Is this a current diagnosis for this admission?: Yes Plan: INR 3.8-> 8.3 Coumadin currently on hold Vit K 5 mg p.o. x1 today. FFP/PRBC if INR continues to trend up or Hgb continues to trend down. Daily INR. Pharmacy following. (12) On Coumadin for atrial fibrillation Is this a current diagnosis for this admission?: Yes Plan: Goal INR 2-3 for chronic a. fib. Currently on hold r/t elevated INR. Pharmacy following. Remaining management as above. (13) Anemia Is this a current diagnosis for this admission?: Yes Plan: Hgb 10.5-> 7.7 Has received ~1.5L IVF Anemia panel pending. Notably, INR is 8. Do not suspect ABLA as the patient is asymptomatic and not tachycardic. Nephrology following. Plan for FFP if INR continues to trend up; received p.o. Vit K today. Plan for PRBC if Hgb trends further down. - Time Time Spent with patient: 35 or more minutes Medications reviewed and adjusted accordingly: Yes Anticipated discharge: Home Within: Other - Pending therapeutic INR
[2019-06-01] MEDS: ATORVASTATIN CALCIUM 40 MG TABLET PO SCH (21:46)
[2019-06-01] MEDS ORDERED: WARFARIN SODIUM 5 MG TABLET PO SCH (22:00)
[2019-06-01] MEDS ORDERED: (PENDING PHARMACY ID) (Warfarin Sodium 5 MG) PO SCH (22:00)
--- NOTE | 2019-06-01 23:08 | PDOC PROGRESS REPORT ---
Subjective Progress Note for:: 06/01/19 Subjective:: This is an 89-year-old female with gallstones and a thickened gallbladder wall. The patient has a history of congestive heart failure. Today she reports no food intolerances, right upper quadrant pain, abdominal pain, nausea, vomiting, or other symptom. Reason For Visit: ACUTE CHOLECYSTITIS,UTI,ESRD Physical Exam Vital Signs: Temp Pulse Resp BP Pulse Ox 98.4 F 86 18 111/52 L 98 06/01/19 19:44 06/01/19 19:44 06/01/19 19:44 06/01/19 19:44 06/01/19 19:44 Intake & Output 05/31/19 06/01/19 06/02/19 06:59 06:59 06:59 Intake Total 841 565 736 Output Total 2700 Balance 841 -2135 736 Weight 79.7 kg 75.3 kg General appearance: PRESENT: no acute distress, cooperative Eye exam: PRESENT: EOMI, PERRLA. ABSENT: scleral icterus Mouth exam: PRESENT: moist, neck supple Neck exam: ABSENT: meningismus, tenderness, thyromegaly, tracheal deviation Respiratory exam: PRESENT: unlabored. ABSENT: chest wall tenderness Cardiovascular exam: ABSENT: tachycardia Pulses: PRESENT: normal radial pulses Vascular exam: PRESENT: normal capillary refill GI/Abdominal exam: PRESENT: soft. ABSENT: distended, firm, guarding, Leonardo's sign, tenderness Rectal exam: PRESENT: deferred Extremities exam: ABSENT: clubbing Musculoskeletal exam: ABSENT: deformity Neurological exam: PRESENT: alert, awake, oriented to person, oriented to place, oriented to time, oriented to situation, CN II-XII grossly intact Psychiatric exam: ABSENT: agitated, anxious, depressed Focused psych exam: ABSENT: delusional Skin exam: ABSENT: cyanosis, erythema, jaundice Results Laboratory Results: 06/01/19 06:47 06/01/19 06:47 06/01/19 06/01/19 06:47 06:47 WBC 14.4 H RBC 2.41 L Hgb 7.7 L Hct 22.8 L MCV 95 MCH 31.9 MCHC 33.7 RDW 16.0 H Plt Count 181 Sodium 141.4 Potassium 4.5 Chloride 97 L Carbon Dioxide 24 Anion Gap 20 H BUN 65 H Creatinine 5.32 H Est GFR ( Amer) 9 L Glucose 150 H Calcium 9.7 05/30/19 10:33 Catheterized Urine Urine Culture - Final NO GROWTH 2 DAYS 05/30/19 05/30/19 05/30/19 09:32 13:30 19:01 Troponin I 0.030 0.028 0.030 Impressions: Chest X-Ray 05/30/19 09:44 IMPRESSION: Mild congestive heart failure. Left pleural effusion. Abdomen Ultrasound 05/30/19 11:29 IMPRESSION: Cholelithiasis. Gallbladder wall thickening may indicate cholecystitis. Hepatobiliary Scan Nuclear Medicine 05/31/19 00:00 IMPRESSION: NORMAL STUDY WITHOUT CYSTIC OR COMMON DUCT OBSTRUCTION. Assessment & Plan - Diagnosis (1) Cardiac cirrhosis Is this a current diagnosis for this admission?: Yes - Time Time Spent with patient: Less than 15 minutes - Plan Summary Plan Summary: This is an 89-year-old female admitted with epigastric and chest pain, and found to have thickening of her gallbladder wall. The patient has a history of congestive heart failure. The patient has elevation of her total bilirubin. The patient has a HIDA scan today showing normal filling of the gallbladder, which rules out acute cholecystitis. 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 This causes thickening of the gallbladder wall, with elevation of bilirubin, alkaline phosphatase, and occasionally ALT and AST. At this time no surgical interventio n is warranted. You may start the patient on a diet. Surgery will sign off at this time. If needed, please renotify surgery with questions or concerns.
[2019-06-02 05:05] LABS: ABSOLUTE RETICS # 0.069 10^6/uL (0.028-0.122); HEMATOCRIT 18.6 % (36.0-47.0); MEAN CORPUSCULAR HEMOGLOBIN 31.3 pg (27.0-33.4); MEAN CORPUSCULAR HGB CONC 32.8 g/dL (32.0-36.0); MEAN CORPUSCULAR VOLUME 95 fl (80-97); PLATELET COUNT 169 10^3/uL (150-450); RED BLOOD COUNT 1.95 10^6/uL (3.72-5.28); RETICULOCYTE COUNT (AUTO) 3.56 % (0.66-2.85); WHITE BLOOD COUNT 12.5 10^3/uL (4.0-10.5)
[2019-06-02 05:07] LABS: HEMOGLOBIN 6.1 g/dL (12.0-15.5)
[2019-06-02 05:20] LABS: ALBUMIN 3.3 g/dL (3.5-5.0); ALKALINE PHOSPHATASE 65 U/L (38-126); ANION GAP 19 (5-19); ASPARTATE AMINO TRANSFERASE 321 U/L (14-36); BILIRUBIN,DIRECT 1.1 mg/dL (0.0-0.4); BILIRUBIN,TOTAL 1.1 mg/dL (0.2-1.3); CALCIUM 8.8 mg/dL (8.4-10.2); CARBON DIOXIDE 21 mmol/L (22-30); CHLORIDE 99 mmol/L (98-107); GLUCOSE 129 mg/dL (75-110); IRON(TIBC) 170.1 ug/dL (37-170); POTASSIUM 4.9 mmol/L (3.6-5.0); TOTAL PROTEIN 5.8 g/dL (6.3-8.2)
[2019-06-02] MEDS: DEXTROSE 5%-NORMAL SALINE 1,000 ML IV PRN (05:50)
[2019-06-02] MEDS: PANTOPRAZOLE SODIUM 40 MG TABLET.DR PO SCH ×2 (05:50→16:37)
[2019-06-02] MEDS: OXYCODONE-ACETAMINOPHEN 5-325 MG TABLET PO PRN ×4 (05:50→22:55)
[2019-06-02] MEDS: LEVOTHYROXINE SODIUM 0.025 MG TABLET PO SCH (05:50)
[2019-06-02 06:14] LABS: BLOOD UREA NITROGEN 97 mg/dL (7-20)
[2019-06-02 06:30] LABS: FOLATE > 20.00 ng/mL (>2.76)
[2019-06-02 07:15] LABS: INTERNATIONAL RATION (INR) 2.36; PROTHROMBIN TIME 26.2 SEC (11.4-15.4)
[2019-06-02] MEDS: METOCLOPRAMIDE HCL 10 MG TABLET PO SCH ×4 (08:08→21:25)
[2019-06-02] MEDS: IPRATROPIUM/ALBUTEROL 0.5-2.5 MG/3 ML AMPUL NEB SCH ×2 (08:58→20:46)
[2019-06-02] MEDS: GUAIFENESIN 600 MG TABLET.SA PO SCH ×2 (11:00→21:25)
[2019-06-02] MEDS: PREDNISONE 20 MG TABLET PO SCH (11:00)
[2019-06-02] MEDS: FUROSEMIDE 40 MG TABLET PO SCH (11:01)
[2019-06-02] MEDS: VITAMIN B COMPLEX TABLET PO SCH (11:01)
[2019-06-02] MEDS: ASPIRIN 81 MG TABLET, CHEWABLE PO SCH (11:01)
[2019-06-02] MEDS: LORATADINE 10 MG TABLET PO SCH (11:02)
[2019-06-02] MEDS: MAGNESIUM OXIDE 400 MG TABLET PO SCH ×2 (11:02→17:20)
[2019-06-02] MEDS: DOCUSATE SODIUM 100 MG CAPSULE PO SCH ×2 (11:02→17:56)
[2019-06-02] MEDS: FLUTICASONE NASAL SPRAY 50 MCG/SPRY 120 SPRAY/16 GM NASL SCH (11:08)
--- NOTE | 2019-06-02 11:21 | PDOC PROGRESS REPORT ---
Subjective Progress Note for:: 06/02/19 Reason For Visit: Patient seen today. Overall she feels better regarding her abdominal pain which is not present anymore. She has been on solid food since yesterday and tolerating it without any issues. No nausea vomiting or abdominal pains postprandial. However she has dropped her hemoglobin. She admits to severe hemorrhoidal issues apparently prolapsed for the last many weeks. She admits to intermittent hematochezia especially worse over the last few days in conjunction with the toxic INR. Patient denies any history of chest pain or shortness of breath. Notes of any fever or chills. Labs and medications were reviewed with her. Physical Exam Vital Signs: Temp Pulse Resp BP Pulse Ox 97.4 F 86 18 98/53 L 98 06/02/19 09:18 06/02/19 09:18 06/02/19 09:18 06/02/19 09:18 06/02/19 09:18 Intake & Output 06/01/19 06/02/19 06/03/19 06:59 06:59 06:59 Intake Total 565 1910 400 Output Total 2700 1 Balance -2134 1909 400 Weight 75.3 kg 76.1 kg General appearance: PRESENT: no acute distress Respiratory exam: PRESENT: clear to auscultation patricia. ABSENT: crackles Cardiovascular exam: PRESENT: irregular rhythm, +S1, +S2 GI/Abdominal exam: PRESENT: normal bowel sounds, soft. ABSENT: organomegaly, tenderness Extremities exam: ABSENT: pedal edema Neurological exam: PRESENT: alert, awake, oriented to person, oriented to place Psychiatric exam: PRESENT: appropriate affect Skin exam: ABSENT: cyanosis, erythema, mottled, rash Results Laboratory Results: 06/02/19 04:35 06/02/19 04:35 06/02/19 06/02/19 06/02/19 04:35 04:35 06:29 WBC 12.5 H RBC 1.95 L Hgb 6.1 L Hct 18.6 L MCV 95 MCH 31.3 MCHC 32.8 RDW 16.0 H Plt Count 169 Retic Count (auto) 3.56 H Sodium 138.9 Potassium 4.9 Chloride 99 Carbon Dioxide 21 L Anion Gap 19 BUN 97 H D Creatinine 6.48 H Est GFR ( Amer) 7 L Glucose 129 H Calcium 8.8 Iron 170.1 H TIBC 235 L % Saturation 72 Ferritin 961.00 H Total Bilirubin 1.1 AST 321 H Alkaline Phosphatase 65 Total Protein 5.8 L Albumin 3.3 L Vitamin B12 801.0 Folate > 20.00 Blood Type O NEGATIVE Antibody Screen NEGATIVE 05/30/19 10:33 Catheterized Urine Urine Culture - Final NO GROWTH 2 DAYS 05/30/19 05/30/19 05/30/19 09:32 13:30 19:01 Troponin I 0.030 0.028 0.030 Impressions: Chest X-Ray 05/30/19 09:44 IMPRESSION: Mild congestive heart failure. Left pleural effusion. Abdomen Ultrasound 05/30/19 11:29 IMPRESSION: Cholelithiasis. Gallbladder wall thickening may indicate cholecystitis. Hepatobiliary Scan Nuclear Medicine 05/31/19 00:00 IMPRESSION: NORMAL STUDY WITHOUT CYSTIC OR COMMON DUCT OBSTRUCTION. Assessment & Plan - Diagnosis (1) Cholecystitis Is this a current diagnosis for this admission?: Yes Plan: Negative HIDA scan. She is been ruled out for acute cholecystitis. Dr. Evans the surgeon opined that she possibly has congestive hepatopathy and no further recommendations from them. Clinically she is improved and she is eating solids without any issues. (2) End stage renal disease on dialysis Is this a current diagnosis for this admission?: Yes Plan: She had dialysis on Thursday. Currently she is stable. No indications for any dialysis today and will plan for dialysis in the morning. (3) On Coumadin for atrial fibrillation Is this a current diagnosis for this admission?: Yes Plan: Toxic INR which peaked 78. She status post Coumadin reversal with vitamin K and her INR today is 2.6. However she has dropped her hemoglobin and she is in the process of being transfused 1 unit. She is also got issues with apparent prolapsed hemorrhoids and hematochezia. (4) HTN (hypertension) Qualifiers: Hypertension type: essential hypertension Qualified Code(s): I10 - Essential (primary) hypertension Is this a current diagnosis for this admission?: Yes Plan: Controlled. Monitor. (5) Anemia Is this a current diagnosis for this admission?: Yes Plan: She is also further dropped her hemoglobin and she is in the process of being transfused 1 unit. She also now complaints or mentions that she has got severe prolapse hemorrhoids with hematochezia which has gotten worse over the last few days and in conjunction with the toxic INR. Would recommend evaluations by surgeons to see if anything needs to be done or to see what is the status. Adequate iron studies in the morning. Monitor.See if she requires further transfusions which might be more easy on dialysis tomorrow. We will also like to rule out hemolysis and labs are being ordered today. (6) Hemorrhoids with complication Plan: Recommend evaluations by surgeons because of acute anemia and hematochezia. (7) Supratherapeutic INR Is this a current diagnosis for this admission?: Yes Plan: Status post reversal with vitamin K by hospitalist. Monitor. (8) Chronic atrial fibrillation Is this a current diagnosis for this admission?: Yes Plan: On anticoagulation with warfarin. Currently she is having a toxic INR and Coumadin has been reversed.
--- NOTE | 2019-06-02 14:14 | PDOC PROGRESS REPORT ---
Subjective Progress Note for:: 06/02/19 Subjective:: The patient is a 89 year old female past medical history of of ESRD on HD Thursday//Thursday, hypothyroidism, GERD, COPD, JEWELL on CPAP, hypertension, and hyperlipidemia admitted 05/30/19 for acute cholecystitis. The patient was seen on morning rounds. She was found resting in bed, comfortably, on supplemental oxygen by nasal cannula; she is not home O2 depe ndent. She reports she is somewhat fatigued today, but otherwise has no complaints. Very happy to have nml food at breakfast; tolerated well without abdominal discomfort or nausea. She does report long standing issues with bleeding hemorrhoids; reports increased bleeding since admission. She further denies fever, chills, chest pain, palpitations, dyspnea, orthopnea, cough, abdominal pain, nausea, vomiting, and diarrhea. She has no questions or concerns at this time. No concerns per nursing. Reason For Visit: ACUTE CHOLECYSTITIS,UTI,ESRD Physical Exam Vital Signs: Temp Pulse Resp BP Pulse Ox 97.4 F 66 20 111/52 L 100 06/02/19 13:18 06/02/19 13:18 06/02/19 13:18 06/02/19 13:18 06/02/19 13:18 Intake & Output 06/01/19 06/02/19 06/03/19 06:59 06:59 06:59 Intake Total 565 1910 1256 Output Total 2700 1 Balance -5 1909 1256 Weight 75.3 kg 76.1 kg General appearance: PRESENT: no acute distress, cooperative, obese, well-developed, well-nourished Head exam: PRESENT: atraumatic, normocephalic Eye exam: PRESENT: conjunctiva pink, EOMI, PERRLA. ABSENT: scleral icterus Ear exam: PRESENT: normal external ear exam Mouth exam: PRESENT: moist, tongue midline Neck exam: ABSENT: carotid bruit, JVD, lymphadenopathy, thyromegaly Respiratory exam: PRESENT: clear to auscultation patricia, symmetrical, unlabored, other - supplemental oxygen via NC. ABSENT: rales, rhonchi, wheezes Cardiovascular exam: PRESENT: irregular rhythm, RRR, +S1, +S2, systolic murmur. ABSENT: diastolic murmur, rubs Vascular exam: PRESENT: normal capillary refill GI/Abdominal exam: PRESENT: normal bowel sounds, soft. ABSENT: distended, guarding, mass, organolmegaly, rebound, tenderness Rectal exam: PRESENT: heme (+) stool, hemorrhoids Extremities exam: PRESENT: full ROM. ABSENT: calf tenderness, clubbing, pedal edema Neurological exam: PRESENT: alert, awake, oriented to person, oriented to place, oriented to time, oriented to situation, CN II-XII grossly intact. ABSENT: motor sensory deficit Psychiatric exam: PRESENT: appropriate affect, normal mood. ABSENT: homicidal ideation, suicidal ideation Skin exam: PRESENT: dry, intact, warm. ABSENT: cyanosis, rash Results Laboratory Results: 06/02/19 04:35 06/02/19 04:35 06/02/19 06/02/19 06/02/19 04:35 04:35 06:29 WBC 12.5 H RBC 1.95 L Hgb 6.1 L Hct 18.6 L MCV 95 MCH 31.3 MCHC 32.8 RDW 16.0 H Plt Count 169 Retic Count (auto) 3.56 H Sodium 138.9 Potassium 4.9 Chloride 99 Carbon Dioxide 21 L Anion Gap 19 BUN 97 H D Creatinine 6.48 H Est GFR ( Amer) 7 L Glucose 129 H Calcium 8.8 Iron 170.1 H TIBC 235 L % Saturation 72 Ferritin 961.00 H Total Bilirubin 1.1 AST 321 H Alkaline Phosphatase 65 Total Protein 5.8 L Albumin 3.3 L Vitamin B12 801.0 Folate > 20.00 Blood Type O NEGATIVE Antibody Screen NEGATIVE 05/30/19 05/30/19 05/30/19 09:32 13:30 19:01 Troponin I 0.030 0.028 0.030 Impressions: Chest X-Ray 05/30/19 09:44 IMPRESSION: Mild congestive heart failure. Left pleural effusion. Abdomen Ultrasound 05/30/19 11:29 IMPRESSION: Cholelithiasis. Gallbladder wall thickening may indicate cholecystitis. Hepatobiliary Scan Nuclear Medicine 05/31/19 00:00 IMPRESSION: NORMAL STUDY WITHOUT CYSTIC OR COMMON DUCT OBSTRUCTION. Assessment and Plan - Diagnosis (1) Cholecystitis Is this a current diagnosis for this admission?: Yes Plan: Ruled out. Elevated T bili and alkaline phosphatase. Gallbladder wall thickening on RUQ ultrasound. No significant leukocytosis. Leonardo sign negative. HIDA scan is negative. Admit to telemetry Supratherapeutic INR; Coumadin on hold. Surgery has signed off. She was empirically placed on IV Zosyn; have discontinued. Analgesics and antiemetics as needed. (2) Acute respiratory failure with hypoxia Is this a current diagnosis for this admission?: Yes Plan: Improved; lung sounds now clear. Remains on supplemental oxygen; likely secondary to COPD exacerbation and anemia. Likely due to COPD exacerbation complicated by ESRD and pulmonary hypertension. Continue p.o. prednisone. Scheduled and as needed nebs, duo nebs Supplemental oxygen, PRN BiPAP Flutter valve and incentive spirometry. (3) COPD exacerbation Is this a current diagnosis for this admission?: Yes Plan: As per #2. Resume home dose Mucinex. (4) JEWELL (obstructive sleep apnea) Is this a current diagnosis for this admission?: Yes Plan: Nocturnal CPAP. Outpatient PCP and pulmonology follow-up. (5) Chronic atrial fibrillation Is this a current diagnosis for this admission?: Yes Plan: Chronic persistent atrial fibrillation. Anticoagulated with Coumadin. INR goal to 2.5. Rate controlled without medication (no home meds). Continue to monitor on telemetry. (6) Elevated troponin Is this a current diagnosis for this admission?: Yes Plan: In the setting of end-stage renal disease and A. fib. Patient complained of substernal pleuritic chest pain worse with belching; now resolved per patient. She has tenderness to palpation over the sternal area. Troponin 0.03, 0.028, 0.30. EKG no acute changes. Continue aspirin and atorvastatin. (7) End stage renal disease on dialysis Is this a current diagnosis for this admission?: Yes Plan: Nephrology consulted; dialysis per their expertise. (8) GERD (gastroesophageal reflux disease) Qualifiers: Esophagitis presence: esophagitis presence not specified Qualified Code(s): K21.9 - Gastro-esophageal reflux disease without esophagitis Is this a current diagnosis for this admission?: Yes Plan: Daily PPI (9) HTN (hypertension) Qualifiers: Hypertension type: essential hypertension Qualified Code(s): I10 - Essential (primary) hypertension Is this a current diagnosis for this admission?: Yes Plan: Well controlled at present. Continue home dose furosemide. IV hydralazine prn. Cardiac diet. (10) Hypothyroidism Qualifiers: Hypothyroidism type: unspecified Qualified Code(s): E03.9 - Hypothyroidism, unspecified Is this a current diagnosis for this admission?: Yes Plan: Continue home dose levothyroxine. (11) Supratherapeutic INR Is this a current diagnosis for this admission?: Yes Plan: INR 3.8-> 8.3-> 2.36 Coumadin currently on hold r/t INR and ABLA Vit K 5 mg p.o. x1 yesterday 1 unit PRBC today Daily INR. Pharmacy following. Will recommend that patient discontinue chronic anticoagulation r/t bleeding/hemorrhage risk. (12) On Coumadin for atrial fibrillation Is this a current diagnosis for this admission?: Yes Plan: Goal INR 2-3 for chronic a. fib. Currently on hold r/t elevated INR and ABLA Pharmacy following. Remaining management as above. (13) Anemia Qualifiers: Other causes of anemia: acute posthemorrhagic Is this a current diagnosis for this admission?: Yes Plan: Hgb 10.5-> 7.7-> 6.1 Has received ~1.5L IVF Anemia panel is acceptable. ABLA r/t BRBPR; unfortunately had not been informing nursing/provider of bleeding. Presumed to be related to hemorrhoids. Nephrology following. Plan for PRBC if Hgb trends further down. Follow up CBC. Surgery consulted. (14) Blood per rectum Is this a current diagnosis for this admission?: Yes Plan: Will ask for Surgical evaluation of hemorrhoids. Management of INR and anemia as above. - Time Time Spent with patient: 35 or more minutes Medications reviewed and adjusted accordingly: Yes Anticipated discharge: Home with Homehealth
[2019-06-02 15:03] LABS: HEMATOCRIT 21.4 % (36.0-47.0); MEAN CORPUSCULAR HGB CONC 33.6 g/dL (32.0-36.0); MEAN CORPUSCULAR VOLUME 95 fl (80-97); PLATELET COUNT 182 10^3/uL (150-450); RED BLOOD COUNT 2.25 10^6/uL (3.72-5.28); RED CELL DISTRIBUTION WIDTH 15.7 % (11.5-14.0); WHITE BLOOD COUNT 12.6 10^3/uL (4.0-10.5)
[2019-06-02 15:05] LABS: HEMOGLOBIN 7.2 g/dL (12.0-15.5)
[2019-06-02 18:11] LABS: HEMATOCRIT 21.5 % (36.0-47.0); MEAN CORPUSCULAR HEMOGLOBIN 31.7 pg (27.0-33.4); MEAN CORPUSCULAR HGB CONC 33.4 g/dL (32.0-36.0); MEAN CORPUSCULAR VOLUME 95 fl (80-97); PLATELET COUNT 182 10^3/uL (150-450); RED BLOOD COUNT 2.27 10^6/uL (3.72-5.28); RED CELL DISTRIBUTION WIDTH 15.4 % (11.5-14.0); WHITE BLOOD COUNT 12.9 10^3/uL (4.0-10.5)
[2019-06-02 18:14] LABS: HEMOGLOBIN 7.2 g/dL (12.0-15.5)
[2019-06-02] MEDS ORDERED: NORMAL SALINE 250 ML IV PRN ×2 (18:20)
[2019-06-02] MEDS: ATORVASTATIN CALCIUM 40 MG TABLET PO SCH (21:25)
[2019-06-03 04:42] LABS: HEMATOCRIT 24.3 % (36.0-47.0); HEMOGLOBIN 8.5 g/dL (12.0-15.5); MEAN CORPUSCULAR HEMOGLOBIN 32.3 pg (27.0-33.4); MEAN CORPUSCULAR HGB CONC 34.8 g/dL (32.0-36.0); MEAN CORPUSCULAR VOLUME 93 fl (80-97); PLATELET COUNT 168 10^3/uL (150-450); RED BLOOD COUNT 2.62 10^6/uL (3.72-5.28); RED CELL DISTRIBUTION WIDTH 16.8 % (11.5-14.0); WHITE BLOOD COUNT 12.2 10^3/uL (4.0-10.5)
[2019-06-03 04:46] LABS: INTERNATIONAL RATION (INR) 1.44; PROTHROMBIN TIME 17.6 SEC (11.4-15.4)
[2019-06-03] MEDS ORDERED: NORMAL SALINE 1000 ML 1,000 ML IV PRN (05:00)
[2019-06-03] MEDS ORDERED: EPOETIN ALFA-EPBX 2,000 UNIT, EPOETIN ALFA-EPBX 3,000 UNIT, EPOETIN ALFA-EPBX 20,000 UN... IV PRN ×4 (05:00)
[2019-06-03 05:01] LABS: ALBUMIN 3.9 g/dL (3.5-5.0); ALKALINE PHOSPHATASE 89 U/L (38-126); ASPARTATE AMINO TRANSFERASE 335 U/L (14-36); BILIRUBIN,DIRECT 1.4 mg/dL (0.0-0.4); BILIRUBIN,TOTAL 1.4 mg/dL (0.2-1.3); CARBON DIOXIDE 18 mmol/L (22-30); CHLORIDE 94 mmol/L (98-107); GLUCOSE 156 mg/dL (75-110); POTASSIUM 5.1 mmol/L (3.6-5.0); TOTAL PROTEIN 6.6 g/dL (6.3-8.2)
[2019-06-03 05:09] LABS: ANION GAP 23 (5-19); BLOOD UREA NITROGEN 119 mg/dL (7-20)
[2019-06-03] MEDS: LEVOTHYROXINE SODIUM 0.025 MG TABLET PO SCH (05:10)
[2019-06-03] MEDS: OXYCODONE-ACETAMINOPHEN 5-325 MG TABLET PO PRN ×3 (05:10→21:38)
[2019-06-03] MEDS: PANTOPRAZOLE SODIUM 40 MG TABLET.DR PO SCH ×2 (05:10→17:08)
[2019-06-03] MEDS: IPRATROPIUM/ALBUTEROL 0.5-2.5 MG/3 ML AMPUL NEB SCH ×2 (07:54→19:58)
[2019-06-03] MEDS: METOCLOPRAMIDE HCL 10 MG TABLET PO SCH ×4 (08:42→21:31)
[2019-06-03] MEDS: DOCUSATE SODIUM 100 MG CAPSULE PO SCH ×2 (10:50→17:09)
[2019-06-03] MEDS: ASPIRIN 81 MG TABLET, CHEWABLE PO SCH (10:50)
[2019-06-03] MEDS: PREDNISONE 20 MG TABLET PO SCH (10:50)
[2019-06-03] MEDS: FLUTICASONE NASAL SPRAY 50 MCG/SPRY 120 SPRAY/16 GM NASL SCH (10:50)
[2019-06-03] MEDS: LORATADINE 10 MG TABLET PO SCH (10:50)
[2019-06-03] MEDS: FUROSEMIDE 40 MG TABLET PO SCH (10:51)
[2019-06-03] MEDS: GUAIFENESIN 600 MG TABLET.SA PO SCH ×2 (10:51→21:31)
[2019-06-03] MEDS: VITAMIN B COMPLEX TABLET PO SCH (10:51)
[2019-06-03] MEDS: MAGNESIUM OXIDE 400 MG TABLET PO SCH ×2 (10:51→17:08)
--- NOTE | 2019-06-03 13:08 | PDOC PROGRESS REPORT ---
Subjective Progress Note for:: 06/03/19 Subjective:: The patient is a 89 year old female past medical history of of ESRD on HD Thursday//Thursday, hypothyroidism, GERD, COPD, JEWELL on CPAP, hypertension, and hyperlipidemia admitted 05/30/19 for acute cholecystitis. The patient was seen on morning rounds while in dialysis. She was found resting in bed, comfortably, on supplemental oxygen by nasal cannula; she is not home O2 dependent. She reports she is feeling better today. She did have a bloody nose overnight though this stopped easily. She is hopeful that surgery will come by to see her to make recommendations regarding her hemorrhoids today. Otherwise, she denies fever, chills, chest pain, palpitations, dyspnea, orthopnea, cough, abdominal pain, nausea, vomiting, and diarrhea. She has no questions or concerns at this time. No concerns per nursing. Reason For Visit: ACUTE CHOLECYSTITIS,UTI,ESRD Physical Exam Vital Signs: Temp Pulse Resp BP Pulse Ox 97.5 F 84 18 123/77 98 06/03/19 05:00 06/03/19 07:00 06/03/19 05:00 06/03/19 05:00 06/03/19 05:00 Intake & Output 06/02/19 06/03/19 06/04/19 06:59 06:59 06:59 Intake Total 1910 3202 Output Total 1 Balance 1909 3202 Weight 76.1 kg 76.5 kg General appearance: PRESENT: no acute distress, cooperative, obese, well- developed, well-nourished Head exam: PRESENT: atraumatic, normocephalic Eye exam: PRESENT: conjunctiva pink, EOMI, PERRLA. ABSENT: scleral icterus Ear exam: PRESENT: normal external ear exam Mouth exam: PRESENT: moist, tongue midline Respiratory exam: PRESENT: clear to auscultation patricia, symmetrical, unlabored, other - Supplemental oxygen via nasal cannula. ABSENT: rales, rhonchi, wheezes Cardiovascular exam: PRESENT: irregular rhythm, RRR. ABSENT: diastolic murmur, rubs, systolic murmur Pulses: PRESENT: normal dorsalis pedis pul Vascular exam: PRESENT: normal capillary refill GI/Abdominal exam: PRESENT: normal bowel sounds, soft. ABSENT: distended, guarding, mass, organolmegaly, rebound, tenderness Rectal exam: PRESENT: deferred Extremities exam: PRESENT: full ROM. ABSENT: calf tenderness, clubbing, pedal edema Neurological exam: PRESENT: alert, awake, oriented to person, oriented to place, oriented to time, oriented to situation, CN II-XII grossly intact. ABSENT: motor sensory deficit Psychiatric exam: PRESENT: appropriate affect, normal mood. ABSENT: homicidal ideation, suicidal ideation Skin exam: PRESENT: dry, intact, warm. ABSENT: cyanosis, rash Results Laboratory Results: 06/03/19 04:10 06/03/19 04:10 06/02/19 06/02/19 06/02/19 06:29 14:54 17:32 WBC 12.6 H 12.9 H RBC 2.25 L 2.27 L Hgb 7.2 L 7.2 L Hct 21.4 L 21.5 L MCV 95 95 MCH 32.0 31.7 MCHC 33.6 33.4 RDW 15.7 H 15.4 H Plt Count 182 182 Sodium Potassium Chloride Carbon Dioxide Anion Gap BUN Creatinine Est GFR ( Amer) Glucose Calcium Total Bilirubin AST Alkaline Phosphatase Total Protein Albumin Blood Type O NEGATIVE Antibody Screen NEGATIVE 06/03/19 06/03/19 04:10 04:10 WBC 12.2 H RBC 2.62 L Hgb 8.5 L Hct 24.3 L MCV 93 MCH 32.3 MCHC 34.8 RDW 16.8 H Plt Count 168 Sodium 134.7 L Potassium 5.1 H Chloride 94 L Carbon Dioxide 18 L Anion Gap 23 H BUN 119 H D Creatinine 6.99 H Est GFR ( Amer) 7 L Glucose 156 H Calcium 9.0 Total Bilirubin 1.4 H AST 335 H Alkaline Phosphatase 89 Total Protein 6.6 Albumin 3.9 Blood Type Antibody Screen 05/30/19 05/30/19 05/30/19 09:32 13:30 19:01 Troponin I 0.030 0.028 0.030 Impressions: Chest X-Ray 05/30/19 09:44 IMPRESSION: Mild congestive heart failure. Left pleural effusion. Abdomen Ultrasound 05/30/19 11:29 IMPRESSION: Cholelithiasis. Gallbladder wall thickening may indicate c holecystitis. Hepatobiliary Scan Nuclear Medicine 05/31/19 00:00 IMPRESSION: NORMAL STUDY WITHOUT CYSTIC OR COMMON DUCT OBSTRUCTION. Assessment and Plan - Diagnosis (1) Cholecystitis Is this a current diagnosis for this admission?: Yes Plan: Ruled out. Elevated T bili and alkaline phosphatase. Gallbladder wall thickening on RUQ ultrasound. No significant leukocytosis. Leonardo sign negative. HIDA scan is negative. Admit to telemetry Supratherapeutic INR; Coumadin on hold. Surgery has signed off. She was empirically placed on IV Zosyn; have discontinued. Analgesics and antiemetics as needed. (2) Acute respiratory failure with hypoxia Is this a current diagnosis for this admission?: Yes Plan: Improved; lung sounds now clear. Remains on supplemental oxygen; likely secondary to COPD exacerbation and anemia. Likely due to COPD exacerbation complicated by ESRD and pulmonary hypertension. Have discontinued prednisone today. Scheduled and as needed nebs, duo nebs Supplemental oxygen, PRN BiPAP Flutter valve and incentive spirometry. (3) COPD exacerbation Is this a current diagnosis for this admission?: Yes Plan: As per #2. Resume home dose Mucinex. (4) JEWELL (obstructive sleep apnea) Is this a current diagnosis for this admission?: Yes Plan: Nocturnal CPAP. Outpatient PCP and pulmonology follow-up. (5) Chronic atrial fibrillation Is this a current diagnosis for this admission?: Yes Plan: Chronic persistent atrial fibrillation. Previously anticoagulated with Coumadin. INR goal to 2.5. I am recommending she discontinue Coumadin due to bleeding risk. Rate controlled without medication (no home meds). Continue to monitor on telemetry. (6) Elevated troponin Is this a current diagnosis for this admission?: Yes Plan: In the setting of end-stage renal disease and A. fib. Patient complained of substernal pleuritic chest pain worse with belching; now resolved per patient. She has tenderness to palpation over the sternal area. Troponin 0.03, 0.028, 0.30. EKG no acute changes. Continue aspirin and atorvastatin. (7) End stage renal disease on dialysis Is this a current diagnosis for this admission?: Yes Plan: Nephrology consulted; dialysis per their expertise. (8) GERD (gastroesophageal reflux disease) Qualifiers: Esophagitis presence: esophagitis presence not specified Qualified Code(s): K21.9 - Gastro-esophageal reflux disease without esophagitis Is this a current diagnosis for this admission?: Yes Plan: Daily PPI (9) HTN (hypertension) Qualifiers: Hypertension type: essential hypertension Qualified Code(s): I10 - Essential (primary) hypertension Is this a current diagnosis for this admission?: Yes Plan: Well controlled at present. Continue home dose furosemide. IV hydralazine prn. Cardiac diet. (10) Hypothyroidism Qualifiers: Hypothyroidism type: unspecified Qualified Code(s): E03.9 - Hypothyroidism, unspecified Is this a current diagnosis for this admission?: Yes Plan: Continue home dose levothyroxine. (11) Supratherapeutic INR Is this a current diagnosis for this admission?: Yes Plan: Resolved. INR 3.8-> 8.3-> 2.36-> 1.44 Coumadin currently on hold r/t INR and ABLA Vit K 5 mg p.o. x1 yesterday s/p 2 units PRBC Have recommend that patient discontinue chronic anticoagulation r/t bleeding/hemorrhage risk. (12) On Coumadin for atrial fibrillation Is this a current diagnosis for this admission?: Yes Plan: Have recommended discontinuing Coumadin. Currently on hold r/t elevated INR and ABLA Remaining management as above. (13) Anemia Qualifiers: Other causes of anemia: acute posthemorrhagic Is this a current diagnosis for this admission?: Yes Plan: Hgb 10.5-> 7.7-> 6.1-> 8.5 (s/p 2 units PRBC) Has received ~1.5L IVF Anemia panel is acceptable. ABLA r/t BRBPR; unfortunately had not been informing nursing/provider of bleeding. Presumed to be related to hemorrhoids. s/p 2 units PRBC Nephrology following. Follow up CBC and further transfusions as needed. Surgery consulted. (14) Blood per rectum Is this a current diagnosis for this admission?: Yes Plan: Will ask for Surgical evaluation of hemorrhoids. Management of INR and anemia as above. (15) Elevated LFTs Is this a current diagnosis for this admission?: Yes Plan: Patient now with elevated LFTs AST 33-> 25-> 321-> 335 ALT 21-> 18-> 272-> 365 LDH 521 Lipase 110 HIDA nml Will obtain RUQ U/S Check Hepatitis panel. Hold atorvastatin and prednisone. - Time Time Spent with patient: 25-34 minutes Medications reviewed and adjusted accordingly: Yes Anticipated discharge: Home with Homehealth
--- NOTE | 2019-06-03 15:59 | RADIOLOGY REPORT (SQ) ---
EXAM DESCRIPTION: U/S ABDOMEN LIMITED W/O DOP COMPLETED DATE/TIME: 06/03/2019 3:48 pm REASON FOR STUDY: Abd pain, elevated LFTs R10.84 GENERALIZED ABDOMINAL PAIN I12.0 HYP CHR KIDNEY D ISEASE W STAGE 5 CHR KIDNEY DISEASE OR D64.9 ANEMIA, UNSPECIFIED COMPARISON: 05/30/2019. TECHNIQUE: Dynamic and static grayscale images acquired of the right upper quadrant and recorded on PACS. Additional selected color Doppler and spectral images recorded. LIMITATIONS: Study limited due to acoustical interference from fat or from air in the bowel. FINDINGS: PANCREAS: Visualized pancreas and duct normal. Parts of pancreas poorly seen secondary to acoustical interference from fat or from air in the bowel. LIVER: No masses. Echotexture normal. LIVER VASCULATURE: Normal directional flow of the main portal vein and hepatic veins. GALLBLADDER: Stones and sludge in the gallbladder. Diffuse gallbladder wall thickening. ULTRASOUND-DETECTED NEW'S SIGN: Negative. INTRAHEPATIC DUCTS AND COMMON DUCT: CBD and intrahepatic ducts normal caliber. No filling defects. INFERIOR VENA CAVA: Normal flow. AORTA: Obscured. RIGHT KIDNEY: Suboptimal visualization. Chronic atrophy. PERITONEAL CAVITY AND RIGHT PLEURAL SPACE: No ascites or effusions. OTHER: No other significant finding. IMPRESSION: LIMITED STUDY. STONES AND SLUDGE IN THE GALLBLADDER. DIFFUSE GALLBLADDER WALL THICKENI NG. TECHNICAL DOCUMENTATION: JOB ID: [id number]- All Rights Reserved Reading location - IP/workstation name: [email or web address]
--- NOTE | 2019-06-03 18:17 | PDOC PROGRESS REPORT ---
Subjective Progress Note for:: 06/03/19 Reason For Visit: Patient seen today on dialysis. She is undergoing dialysis without any issues. She is pain-free in the abdomen. She is tolerating her food. No history of nausea vomiting. Labs and medications were reviewed. Labs shows worsening AST/ALT with normal alkaline phosphatase.Dialysis orders were reviewed with the treating dialysis nurse Physical Exam Vital Signs: Temp Pulse Resp BP Pulse Ox 98.3 F 76 19 98/66 L 98 06/03/19 16:00 06/03/19 16:00 06/03/19 16:00 06/03/19 16:00 06/03/19 05:00 Intake & Output 06/02/19 06/03/19 06/04/19 06:59 06:59 06:59 Intake Total 1910 3202 Output Total 1 Balance 1909 3202 Weight 76.1 kg 76.5 kg General appearance: PRESENT: no acute distress Respiratory exam: PRESENT: clear to auscultation patricia. ABSENT: crackles Cardiovascular exam: PRESENT: irregular rhythm, +S1, +S2 GI/Abdominal exam: PRESENT: normal bowel sounds, soft. ABSENT: organomegaly, tenderness Extremities exam: ABSENT: pedal edema Neurological exam: PRESENT: alert, awake, oriented to person, oriented to place Skin exam: ABSENT: cyanosis, erythema, mottled, rash Results Laboratory Results: 06/03/19 04:10 06/03/19 04:10 06/02/19 06/02/19 06/03/19 06:29 17:32 04:10 WBC 12.9 H 12.2 H RBC 2.27 L 2.62 L Hgb 7.2 L 8.5 L Hct 21.5 L 24.3 L MCV 95 93 MCH 31.7 32.3 MCHC 33.4 34.8 RDW 15.4 H 16.8 H Plt Count 182 168 Sodium Potassium Chloride Carbon Dioxide Anion Gap BUN Creatinine Est GFR ( Amer) Glucose Calcium Total Bilirubin AST Alkaline Phosphatase Total Protein Albumin Blood Type O NEGATIVE Antibody Screen NEGATIVE 06/03/19 04:10 WBC RBC Hgb Hct MCV MCH MCHC RDW Plt Count Sodium 134.7 L Potassium 5.1 H Chloride 94 L Carbon Dioxide 18 L Anion Gap 23 H BUN 119 H D Creatinine 6.99 H Est GFR ( Amer) 7 L Glucose 156 H Calcium 9.0 Total Bilirubin 1.4 H AST 335 H Alkaline Phosphatase 89 Total Protein 6.6 Albumin 3.9 Blood Type Antibody Screen 05/30/19 05/30/19 05/30/19 09:32 13:30 19:01 Troponin I 0.030 0.028 0.030 Impressions: Chest X-Ray 05/30/19 09:44 IMPRESSION: Mild congestive heart failure. Left pleural effusion. Hepatobiliary Scan Nuclear Medicine 05/31/19 00:00 IMPRESSION: NORMAL STUDY WITHOUT CYSTIC OR COMMON DUCT OBSTRUCTION. Abdomen Ultrasound 06/03/19 00:00 IMPRESSION: LIMITED STUDY. STONES AND SLUDGE IN THE GALLBLADDER. DIFFUSE GAL LBLADDER WALL THICKENING. Assessment & Plan - Diagnosis (1) Cholecystitis Is this a current diagnosis for this admission?: Yes Plan: Negative HIDA scan. She is been ruled out for acute cholecystitis. Dr. Evans the surgeon opined that she possibly has congestive hepatopathy and no further recommendations from them. Clinically she is improved and she is eating solids without any issues.However her AST/ALT is progressively rising. I am going to discontinue her Lipitor 40 mg. Discussed with [facility] hospitalist to look at this including working her up for hepatitis. (2) End stage renal disease on dialysis Is this a current diagnosis for this admission?: Yes Plan: Patient seen on dialysis. Vital signs are stable. Dialysis is being supervised to ensure safe and smooth procedure. Plan to remove between and 2 L of fluid. Dialysis orders were reviewed with the treating dialysis nurse.. (3) On Coumadin for atrial fibrillation Is this a current diagnosis for this admission?: Yes Plan: Toxic INR which peaked 78. She status post Coumadin reversal with vitamin K and her INR today is 2.6. However she has dropped her hemoglobin and she is in the process of being transfused 1 unit. She is also got issues with apparent prolapsed hemorrhoids and hematochezia. (4) HTN (hypertension) Qualifiers: Hypertension type: essential hypertension Qualified Code(s): I10 - Essential (primary) hypertension Is this a current diagnosis for this admission?: Yes Plan: Controlled. Monitor. (5) Anemia Qualifiers: Other causes of anemia: acute posthemorrhagic Is this a current diagnosis for this admission?: Yes Plan: Current hemoglobin 8.5 posttransfusion and stable. At this erythropoietin. Monitor. (6) Hemorrhoids with complication Plan: Recommend evaluations by surgeons because of acute anemia and hematochezia. (7) Supratherapeutic INR Is this a current diagnosis for this admission?: Yes Plan: Status post reversal with vitamin K by hospitalist. Monitor. (8) Chronic atrial fibrillation Is this a current diagnosis for this admission?: Yes Plan: On anticoagulation with warfarin. Currently she is having a toxic INR and Couma din has been reversed.
[2019-06-04] MEDS ORDERED: NORMAL SALINE 1000 ML 1,000 ML IV ONE (02:30)
[2019-06-04 05:37] LABS: HEPATITS B SURFACE ANTIGEN Negative (Negative)
[2019-06-04] MEDS: LEVOTHYROXINE SODIUM 0.025 MG TABLET PO SCH (05:57)
[2019-06-04] MEDS: PANTOPRAZOLE SODIUM 40 MG TABLET.DR PO SCH ×2 (05:57→17:47)
[2019-06-04 05:59] LABS: HEMATOCRIT 23.7 % (36.0-47.0); MEAN CORPUSCULAR HEMOGLOBIN 30.9 pg (27.0-33.4); MEAN CORPUSCULAR HGB CONC 33.5 g/dL (32.0-36.0); MEAN CORPUSCULAR VOLUME 92 fl (80-97); PLATELET COUNT 192 10^3/uL (150-450); RED BLOOD COUNT 2.57 10^6/uL (3.72-5.28); RED CELL DISTRIBUTION WIDTH 17.5 % (11.5-14.0); WHITE BLOOD COUNT 8.7 10^3/uL (4.0-10.5)
[2019-06-04 06:01] LABS: HEMOGLOBIN 7.9 g/dL (12.0-15.5)
[2019-06-04] MEDS: OXYCODONE-ACETAMINOPHEN 5-325 MG TABLET PO PRN ×2 (06:07→23:18)
[2019-06-04 06:09] LABS: ALBUMIN 3.5 g/dL (3.5-5.0); ALKALINE PHOSPHATASE 87 U/L (38-126); ANION GAP 19 (5-19); ASPARTATE AMINO TRANSFERASE 118 U/L (14-36); BILIRUBIN,DIRECT 1.1 mg/dL (0.0-0.4); BILIRUBIN,TOTAL 1.2 mg/dL (0.2-1.3); BLOOD UREA NITROGEN 71 mg/dL (7-20); CALCIUM 9.2 mg/dL (8.4-10.2); CARBON DIOXIDE 21 mmol/L (22-30); CHLORIDE 97 mmol/L (98-107); GLUCOSE 139 mg/dL (75-110); POTASSIUM 3.6 mmol/L (3.6-5.0); TOTAL PROTEIN 5.7 g/dL (6.3-8.2)
[2019-06-04] MEDS: IPRATROPIUM/ALBUTEROL 0.5-2.5 MG/3 ML AMPUL NEB SCH ×2 (07:49→20:13)
[2019-06-04] MEDS: METOCLOPRAMIDE HCL 10 MG TABLET PO SCH ×4 (08:16→23:12)
[2019-06-04] MEDS: DOCUSATE SODIUM 100 MG CAPSULE PO SCH ×2 (10:19→17:47)
[2019-06-04] MEDS: GUAIFENESIN 600 MG TABLET.SA PO SCH ×2 (10:20→23:12)
[2019-06-04] MEDS: FLUTICASONE NASAL SPRAY 50 MCG/SPRY 120 SPRAY/16 GM NASL SCH (10:20)
[2019-06-04] MEDS: ASPIRIN 81 MG TABLET, CHEWABLE PO SCH (10:20)
[2019-06-04] MEDS: LORATADINE 10 MG TABLET PO SCH (10:21)
[2019-06-04] MEDS: VITAMIN B COMPLEX TABLET PO SCH (10:22)
[2019-06-04] MEDS: MAGNESIUM OXIDE 400 MG TABLET PO SCH ×2 (10:22→17:47)
[2019-06-04] MEDS: FUROSEMIDE 40 MG TABLET PO SCH (10:25)
[2019-06-04 11:47] LABS: HEMATOCRIT 24.5 % (36.0-47.0); HEMOGLOBIN 8.4 g/dL (12.0-15.5); MEAN CORPUSCULAR HEMOGLOBIN 32.1 pg (27.0-33.4); MEAN CORPUSCULAR HGB CONC 34.4 g/dL (32.0-36.0); MEAN CORPUSCULAR VOLUME 93 fl (80-97); PLATELET COUNT 196 10^3/uL (150-450); RED BLOOD COUNT 2.63 10^6/uL (3.72-5.28); RED CELL DISTRIBUTION WIDTH 18.1 % (11.5-14.0); WHITE BLOOD COUNT 9.6 10^3/uL (4.0-10.5)
[2019-06-04] MEDS ORDERED: HYDROCODONE BIT/HOMATROPINE SYRUP 5 ML UDCUP PO PRN (13:52)
[2019-06-04] MEDS ORDERED: HYDROCORTISONE ACETATE 25 MG SUPP.RECT PR PRN (13:52)
--- NOTE | 2019-06-04 14:03 | PDOC PROGRESS REPORT ---
Subjective Progress Note for:: 06/04/19 Subjective:: The patient is a 89 year old female past medical history of of ESRD on HD Thursday//Thursday, hypothyroidism, GERD, COPD, JEWELL on CPAP, hypertension, and hyperlipidemia admitted 05/30/19 for acute cholecystitis. The patient was seen on morning rounds . She was found resting in bed, comfortably, on supplemental oxygen by nasal cannula; she is not home O2 dep endent. She reports she is feeling better today. Continues to have rectal discomfort related to hemorrhoids but reports that bleeding is nearly resolved. Only complaint today is chest wall pain with cough. Otherwise, she denies fever, chills, chest pain, palpitations, dyspnea, orthopnea, abdominal pain, nausea, vomiting, and diarrhea. She has no questions or concerns at this time. No concerns per nursing. Reason For Visit: ACUTE CHOLECYSTITIS,UTI,ESRD Physical Exam Vital Signs: Temp Pulse Resp BP Pulse Ox 98.6 F 96 18 90/60 L 97 06/04/19 07:51 06/04/19 07:51 06/04/19 07:51 06/04/19 10:51 06/04/19 07:51 Intake & Output 06/03/19 06/04/19 06/05/19 06:59 06:59 06:59 Intake Total 3202 818 1000 Output Total 1500 Balance 3202 -682 1000 Weight 76.5 kg 79.3 kg General appearance: PRESENT: no acute distress, cooperative, well-developed, well-nourished Head exam: PRESENT: atraumatic, normocephalic Eye exam: PRESENT: conjunctiva pink, EOMI, PERRLA. ABSENT: scleral icterus Ear exam: PRESENT: normal external ear exam Mouth exam: PRESENT: moist, tongue midline Respiratory exam: PRESENT: clear to auscultation patricia, symmetrical, unlabored, other - supplemental oxygen via NC. ABSENT: rales, rhonchi, wheezes Cardiovascular exam: PRESENT: RRR, +S1, +S2. ABSENT: diastolic murmur, rubs, systolic murmur Pulses: PRESENT: normal dorsalis pedis pul Vascular exam: PRESENT: normal capillary refill GI/Abdominal exam: PRESENT: normal bowel sounds, soft. ABSENT: distended, guarding, mass, organolmegaly, rebound, tenderness Rectal exam: PRESENT: hemorrhoids Extremities exam: PRESENT: full ROM, pedal edema - trace bilaterally. ABSENT: calf tenderness, clubbing Neurological exam: PRESENT: alert, awake, oriented to person, oriented to place, oriented to time, oriented to situation, CN II-XII grossly intact. ABSENT: motor sensory deficit Psychiatric exam: PRESENT: appropriate affect, normal mood. ABSENT: homicidal ideation, suicidal ideation Skin exam: PRESENT: dry, intact, warm. ABSENT: cyanosis, rash Results Laboratory Results: 06/04/19 11:36 06/04/19 04:43 06/03/19 06/04/19 06/04/19 18:12 04:43 04:43 WBC 8.7 RBC 2.57 L Hgb 7.9 L Hct 23.7 L MCV 92 MCH 30.9 MCHC 33.5 RDW 17.5 H Plt Count 192 Sodium 137.4 Potassium 3.6 Chloride 97 L Carbon Dioxide 21 L Anion Gap 19 BUN 71 H Creatinine 4.29 H Est GFR ( Amer) 12 L Glucose 139 H Calcium 9.2 Total Bilirubin 1.2 AST 118 H Alkaline Phosphatase 87 Total Protein 5.7 L Albumin 3.5 Stool Occult Blood POSITIVE 06/04/19 11:36 WBC 9.6 RBC 2.63 L Hgb 8.4 L Hct 24.5 L MCV 93 MCH 32.1 MCHC 34.4 RDW 18.1 H Plt Count 196 Sodium Potassium Chloride Carbon Dioxide Anion Gap BUN Creatinine Est GFR ( Amer) Glucose Calcium Total Bilirubin AST Alkaline Phosphatase Total Protein Albumin Stool Occult Blood 05/30/19 05/30/19 05/30/19 09:32 13:30 19:01 Troponin I 0.030 0.028 0.030 Impressions: Chest X-Ray 05/30/19 09:44 IMPRESSION: Mild congestive heart failure. Left pleural effusion. Hepatobiliary Scan Nuclear Medicine 05/31/19 00:00 IMPRESSION: NORMAL STUDY WITHOUT CYSTIC OR COMMON DUCT OBSTRUCTION. Abdomen Ultrasound 06/03/19 00:00 IMPRESSION: LIMITED STUDY. STONES AND SLUDGE IN THE GALLBLADDER. DIFFUSE GALLBLADDER WALL THICKENING. Assessment and Plan - Diagnosis (1) Cholecystitis Is this a current diagnosis for this admission?: Yes Plan: Ruled out. Elevated T bili and alkaline phosphatase. Gallbladder wall thickening on RUQ ultrasound. No significant leukocytosis. Lenoardo sign negative. HIDA scan is negative. Admit to telemetry Supratherapeutic INR; Coumadin on hold. Surgery has signed off. She was empirically placed on IV Zosyn; have discontinued. Analgesics and antiemetics as needed. (2) Acute respiratory failure with hypoxia Is this a current diagnosis for this admission?: Yes Plan: Improved; lung sounds now clear. Remains on supplemental oxygen; likely secondary to COPD exacerbation and anemia. Have asked nursing to begin weaning. Likely due to COPD exacerbation complicated by ESRD and pulmonary hypertension. Have discontinued prednisone today. Scheduled and as needed nebs, duo nebs Supplemental oxygen, PRN BiPAP Flutter valve and incentive spirometry. (3) COPD exacerbation Is this a current diagnosis for this admission?: Yes Plan: As per #2. Resume home dose Mucinex. Hydrocodan cough syrup r/t pleurisy. (4) JEWELL (obstructive sleep apnea) Is this a current diagnosis for this admission?: Yes Plan: Nocturnal CPAP. Outpatient PCP and pulmonology follow-up. (5) Chronic atrial fibrillation Is this a current diagnosis for this admission?: Yes Plan: Chronic persistent atrial fibrillation. Previously anticoagulated with Coumadin. INR goal to 2.5. I am recommending she discontinue Coumadin due to bleeding risk. Rate controlled without medication (no home meds). Continue to monitor on telemetry. (6) Elevated troponin Is this a current diagnosis for this admission?: Yes Plan: In the setting of end-stage renal disease and A. fib. Patient complained of substernal pleuritic chest pain worse with belching; now resolved per patient. She has tenderness to palpation over the sternal area. Troponin 0.03, 0.028, 0.30. EKG no acute changes. Continue aspirin and atorvastatin. (7) End stage renal disease on dialysis Is this a current diagnosis for this admission?: Yes Plan: Nephrology consulted; dialysis per their expertise. (8) GERD (gastroesophageal reflux disease) Qualifiers: Esophagitis presence: esophagitis presence not specified Qualified Code(s): K21.9 - Gastro-esophageal reflux disease without esophagitis Is this a current diagnosis for this admission?: Yes Plan: Daily PPI (9) HTN (hypertension) Qualifiers: Hypertension type: essential hypertension Qualified Code(s): I10 - Essential (primary) hypertension Is this a current diagnosis for this admission?: Yes Plan: Well controlled at present. Continue home dose furosemide. IV hydralazine prn. Cardiac diet. (10) Hypothyroidism Qualifiers: Hypothyroidism type: unspecified Qualified Code(s): E03.9 - Hypothyroidism, unspecified Is this a current diagnosis for this admission?: Yes Plan: Continue home dose levothyroxine. (11) Supratherapeutic INR Is this a current diagnosis for this admission?: Yes Plan: Resolved. INR 3.8-> 8.3-> 2.36-> 1.44 Coumadin currently on hold r/t INR and ABLA Vit K 5 mg p.o. x1 yesterday s/p 2 units PRBC Have recommend that patient discontinue chronic anticoagulation r/t bleeding/hemorrhage risk. (12) On Coumadin for atrial fibrillation Is this a current diagnosis for this admission?: Yes Plan: Have recommended discontinuing Coumadin. Currently on hold r/t elevated INR and ABLA Remaining management as above. (13) Anemia Qualifiers: Other causes of anemia: acute posthemorrhagic Is this a current diagnosis for this admission?: Yes Plan: Now trending up. Hgb 10.5-> 7.7-> 6.1-> 8.5 (s/p 2 units PRBC)-> 7.9-> 8.4 Anemia panel is acceptable. ABLA r/t BRBPR; unfortunately had not been informing nursing/provider of bleeding. Presumed to be related to hemorrhoids. s/p 2 units PRBC Nephrology following. Follow up CBC and further transfusions as needed. Have discontinued Coumadin. (14) Blood per rectum Is this a current diagnosis for this admission?: Yes Plan: Improved. Hgb trending up; decreased bleeding per patient Discussed with surgery; recommend outpatient follow up for evaluation for hemorrhoid banding following discharge (and off Coumadin). Management of INR and anemia as above. (15) Elevated LFTs Is this a current diagnosis for this admission?: Yes Plan: Now trending down. AST 33-> 25-> 321-> 335-> 118 ALT 21-> 18-> 272-> 365-> 244 LDH 521 Lipase 110 HIDA nml Repeat U/S shows gallbladder sludge/stones; no abn liver findings. Check Hepatitis panel. Hold atorvastatin and prednisone. (16) Hemorrhoids Is this a current diagnosis for this admission?: Yes Plan: Anusol suppository BIDP [facility] - Time Time Spent with patient: 25-34 minutes Anticipated discharge: Home Within: within 24 hours - if LFT and HGB are stable/improved.
[2019-06-04] MEDS: HYDROCODONE BIT/HOMATROPINE 5-1.5 MG TABLET PO PRN (14:48)
[2019-06-04] MEDS ORDERED: HYDROCORTISONE ACETATE 25 MG SUPP.RECT PR ONE (15:00)
[2019-06-04 19:25] LABS: C DIFFICILE GDH NEGATIVE (NEGATIVE)
[2019-06-05 05:11] LABS: HEMATOCRIT 22.5 % (36.0-47.0); MEAN CORPUSCULAR HEMOGLOBIN 31.7 pg (27.0-33.4); MEAN CORPUSCULAR HGB CONC 33.9 g/dL (32.0-36.0); MEAN CORPUSCULAR VOLUME 93 fl (80-97); PLATELET COUNT 187 10^3/uL (150-450); RED BLOOD COUNT 2.42 10^6/uL (3.72-5.28); RED CELL DISTRIBUTION WIDTH 17.7 % (11.5-14.0); WHITE BLOOD COUNT 8.3 10^3/uL (4.0-10.5)
[2019-06-05 05:17] LABS: HEMOGLOBIN 7.7 g/dL (12.0-15.5)
[2019-06-05 05:39] LABS: ALBUMIN 3.4 g/dL (3.5-5.0); ALKALINE PHOSPHATASE 81 U/L (38-126); ASPARTATE AMINO TRANSFERASE 67 U/L (14-36); BILIRUBIN,DIRECT 1.3 mg/dL (0.0-0.4); BILIRUBIN,TOTAL 1.4 mg/dL (0.2-1.3); TOTAL PROTEIN 5.5 g/dL (6.3-8.2)
[2019-06-05] MEDS: PANTOPRAZOLE SODIUM 40 MG TABLET.DR PO SCH ×2 (06:07→17:13)
[2019-06-05] MEDS: LEVOTHYROXINE SODIUM 0.025 MG TABLET PO SCH (06:07)
[2019-06-05] MEDS: HYDROCODONE BIT/HOMATROPINE 5-1.5 MG TABLET PO PRN ×2 (06:11→13:33)
[2019-06-05] MEDS: METOCLOPRAMIDE HCL 10 MG TABLET PO SCH ×4 (08:37→21:31)
[2019-06-05] MEDS ORDERED: NORMAL SALINE 250 ML IV PRN ×2 (08:53)
[2019-06-05] MEDS: IPRATROPIUM/ALBUTEROL 0.5-2.5 MG/3 ML AMPUL NEB SCH ×2 (09:33→20:52)
[2019-06-05] MEDS: ASPIRIN 81 MG TABLET, CHEWABLE PO SCH (09:41)
[2019-06-05] MEDS: GUAIFENESIN 600 MG TABLET.SA PO SCH ×2 (09:42→21:32)
[2019-06-05] MEDS: LORATADINE 10 MG TABLET PO SCH (09:42)
[2019-06-05] MEDS: DOCUSATE SODIUM 100 MG CAPSULE PO SCH ×2 (09:42→17:11)
[2019-06-05] MEDS: MAGNESIUM OXIDE 400 MG TABLET PO SCH ×2 (09:42→17:13)
[2019-06-05] MEDS: FUROSEMIDE 40 MG TABLET PO SCH (09:42)
[2019-06-05] MEDS: FLUTICASONE NASAL SPRAY 50 MCG/SPRY 120 SPRAY/16 GM NASL SCH (09:43)
[2019-06-05] MEDS: VITAMIN B COMPLEX TABLET PO SCH (09:43)
--- NOTE | 2019-06-05 11:34 | PDOC PROGRESS REPORT ---
Subjective Progress Note for:: 06/05/19 Subjective:: The patient is a 89 year old female past medical history of of ESRD on HD Thursday//Thursday, hypothyroidism, GERD, COPD, JEWELL on CPAP, hypertension, and hyperlipidemia admitted 05/30/19 for acute cholecystitis. The patient was seen on morning rounds . She was found resting in bed, comfortably, on supplemental oxygen by nasal cannula at 2 lpm; she is not home O2 dependent. She is frustrated today; continues to have a poor appetite and non productive cough w/ associated chest wall discomfort. Otherwise, she denies fever, chills, chest pain, palpitations, dyspnea, orthopnea, abdominal pain, nausea, vomiting, and diarrhea. She denies melena and hematochezia. She has no new questions or concerns at this time. No concerns per nursing. Reason For Visit: ACUTE CHOLECYSTITIS,UTI,ESRD Physical Exam Vital Signs: Temp Pulse Resp BP Pulse Ox 97.8 F 88 20 111/62 98 06/05/19 08:00 06/05/19 08:00 06/05/19 09:36 06/05/19 08:00 06/05/19 08:00 Intake & Output 06/04/19 06/05/19 06/06/19 06:59 06:59 06:59 Intake Total 818 2360 Output Total 1500 Balance -682 2360 Weight 79.3 kg 80.5 kg General appearance: PRESENT: no acute distress, cooperative, well-developed, well-nourished Head exam: PRESENT: atraumatic, normocephalic Eye exam: PRESENT: conjunctiva pink, EOMI, PERRLA. ABSENT: scleral icterus Ear exam: PRESENT: normal external ear exam Mouth exam: PRESENT: moist, tongue midline Neck exam: ABSENT: carotid bruit, JVD, lymphadenopathy, thyromegaly Respiratory exam: PRESENT: clear to auscultation patricia, symmetrical, unlabored, other - Supplemental oxygen by nasal cannula. ABSENT: rales, rhonchi, wheezes Cardiovascular exam: PRESENT: irregular rhythm, +S1, +S2. ABSENT: diastolic murmur, rubs, systolic murmur Vascular exam: PRESENT: normal capillary refill GI/Abdominal exam: PRESENT: normal bowel sounds, soft. ABSENT: distended, guarding, mass, organolmegaly, rebound, tenderness Rectal exam: PRESENT: deferred Extremities exam: PRESENT: full ROM, pedal edema - Trace bilaterally. ABSENT: calf tenderness, clubbing Neurological exam: PRESENT: alert, awake, oriented to person, oriented to place, oriented to time, oriented to situation, CN II-XII grossly intact. ABSENT: motor sensory deficit Psychiatric exam: PRESENT: agitated, appropriate affect. ABSENT: homicidal ideation, suicidal ideation Skin exam: PRESENT: dry, intact, warm. ABSENT: cyanosis, rash Results Laboratory Results: 06/05/19 04:37 06/04/19 04:43 06/04/19 06/05/19 06/05/19 11:36 04:37 04:37 WBC 9.6 8.3 RBC 2.63 L 2.42 L Hgb 8.4 L 7.7 L Hct 24.5 L 22.5 L MCV 93 93 MCH 32.1 31.7 MCHC 34.4 33.9 RDW 18.1 H 17.7 H Plt Count 196 187 Total Bilirubin 1.4 H AST 67 H Alkaline Phosphatase 81 Total Protein 5.5 L Albumin 3.4 L Blood Type Antibody Screen 06/05/19 09:28 WBC RBC Hgb Hct MCV MCH MCHC RDW Plt Count Total Bilirubin AST Alkaline Phosphatase Total Protein Albumin Blood Type O NEGATIVE Antibody Screen NEGATIVE 05/30/19 16:19 Blood Blood Culture - Final NO GROWTH IN 5 DAYS 05/30/19 16:16 Blood Blood Culture - Final NO GROWTH IN 5 DAYS 05/30/19 05/30/19 05/30/19 09:32 13:30 19:01 Troponin I 0.030 0.028 0.030 Impressions: Chest X-Ray 05/30/19 09:44 IMPRESSION: Mild congestive heart failure. Left pleural effusion. Hepatobiliary Scan Nuclear Medicine 05/31/19 00:00 IMPRESSION: NORMAL STUDY WITHOUT CYSTIC OR COMMON DUCT OBSTRUCTION. Abdomen Ultrasound 06/03/19 00:00 IMPRESSION: LIMITED STUDY. STONES AND SLUDGE IN THE GALLBLADDER. DIFFUSE GALLBLADDER WALL THICKENING. Assessment and Plan - Diagnosis (1) Cholecystitis Is this a current diagnosis for this admission?: Yes Plan: Ruled out. Elevated T bili and alkaline phosphatase. Gallbladder wall thickening on RUQ ultrasound. No significant leukocytosis. Leonardo sign negative. HIDA scan is negative. CT ABD/Pelvis today. Admit to telemetry Surgery has signed off. She was empirically placed on IV Zosyn; have discontinued. Analgesics and antiemetics as needed. (2) Acute respiratory failure with hypoxia Is this a current diagnosis for this admission?: Yes Plan: Improved; lung sounds now clear. Remains on supplemental oxygen; likely secondary to COPD exacerbation and anemia. Have asked nursing to begin weaning. Likely due to COPD exacerbation complicated by ESRD and pulmonary hypertension. Have discontinued prednisone. Scheduled and as needed nebs, duo nebs Supplemental oxygen, PRN BiPAP Flutter valve and incentive spirometry. (3) COPD exacerbation Is this a current diagnosis for this admission?: Yes Plan: As per #2. Continue home dose Mucinex. Hydrocodan cough syrup r/t pleurisy. (4) JEWELL (obstructive sleep apnea) Is this a current diagnosis for this admission?: Yes Plan: Nocturnal CPAP. Outpatient PCP and pulmonology follow-up. (5) Chronic atrial fibrillation Is this a current diagnosis for this admission?: Yes Plan: Chronic persistent atrial fibrillation. Previously anticoagulated with Coumadin. INR goal to 2.5. I am recommending she discontinue Coumadin due to bleeding risk. Rate controlled without medication (no home meds). Continue to monitor on telemetry. (6) Elevated troponin Is this a current diagnosis for this admission?: Yes Plan: In the setting of end-stage renal disease and A. fib. Patient complained of substernal pleuritic chest pain worse with belching; now resolved per patient. She has tenderness to palpation over the sternal area. Troponin 0.03, 0.028, 0.30. EKG no acute changes. Continue aspirin and atorvastatin. (7) End stage renal disease on dialysis Is this a current diagnosis for this admission?: Yes Plan: Nephrology consulted; dialysis per their expertise. (8) GERD (gastroesophageal reflux disease) Qualifiers: Esophagitis presence: esophagitis presence not specified Qualified Code(s): K21.9 - Gastro-esophageal reflux disease without esophagitis Is this a current diagnosis for this admission?: Yes Plan: Daily PPI (9) HTN (hypertension) Qualifiers: Hypertension type: essential hypertension Qualified Code(s): I10 - Essential (primary) hypertension Is this a current diagnosis for this admission?: Yes Plan: Well controlled at present; slightly soft. Did receive 1 L NS for hypotension. Continue home dose furosemide. IV hydralazine prn. Cardiac diet. (10) Hypothyroidism Qualifiers: Hypothyroidism type: unspecified Qualified Code(s): E03.9 - Hypothyroidism, unspecified Is this a current diagnosis for this admission?: Yes Plan: Continue home dose levothyroxine. (11) Supratherapeutic INR Is this a current diagnosis for this admission?: Yes Plan: Resolved. INR 3.8-> 8.3-> 2.36-> 1.44 Vit K 5 mg p.o. x1 s/p 2 units PRBC Have recommend that patient discontinue chronic anticoagulation r/t bleeding/hemorrhage risk. (12) On Coumadin for atrial fibrillation Is this a current diagnosis for this admission?: Yes Plan: Have recommended discontinuing Coumadin. Currently on hold r/t elevated INR and ABLA Remaining management as above. (13) Anemia Qualifiers: Other causes of anemia: acute posthemorrhagic Is this a current diagnosis for this admission?: Yes Plan: Now trending up. Hgb 10.5-> 7.7-> 6.1-> 8.5 (s/p 2 units PRBC)-> 7.9-> 8.4-> 7.7 Anemia panel is acceptable. ABLA r/t BRBPR; unfortunately had not been informing nursing/provider of bleeding. Presumed to be related to hemorrhoids. s/p 2 units PRBC Nephrology following. Discussed w/ Surgery. Dr. Gamboa recommends additional PRBC and CT ABD/Pelvis w IV and oral contrast. Follow up CBC and further transfusions as needed. Have discontinued Coumadin. (14) Blood per rectum Is this a current diagnosis for this admission?: Yes Plan: Improved; no further episodes per patient.. Discussed with surgery; recommend outpatient follow up for evaluation for hemorrhoid banding following discharge (and off Coumadin). CT ABD/Pelvis pending. Management of INR and anemia as above. (15) Elevated LFTs Is this a current diagnosis for this admission?: Yes Plan: Now trending down. AST 33-> 25-> 321-> 335-> 118-> 67 ALT 21-> 18-> 272-> 365-> 244-> 184 LDH 521 Lipase 110 HIDA nml Repeat U/S shows gallbladder sludge/stones; no abn liver findings. Check Hepatitis panel. CT ABD/Pelvis pending. Hold atorvastatin and prednisone. (16) Hemorrhoids Is this a current diagnosis for this admission?: Yes Plan: Anusol suppository BIDP [facility] at [facility]. - Time Time Spent with patient: 25-34 minutes Medications reviewed and adjusted accordingly: Yes Anticipated discharge: Home with Homehealth
--- NOTE | 2019-06-05 12:33 | RADIOLOGY REPORT (SQ) ---
EXAM DESCRIPTION: CT ABD/PELVIS ORAL ONLY COMPLETED DATE/TIME: 06/05/2019 12:05 pm REASON FOR STUDY: ABD pain, elevated LFTs, ABLA R10.84 GENERALIZED ABDOMINAL PAIN I12.0 HYP CHR KI DNEY DISEASE W STAGE 5 CHR KIDNEY DISEASE OR D64.9 ANEMIA, UNSPECIFIED COMPARISON: None. TECHNIQUE: CT scan of the abdomen and pelvis performed with oral contrast and no intravenous contras t. Images reviewed with lung, soft tissue, and bone windows. Reconstructed coronal and sagittal MPR i mages reviewed. All images stored on PACS. All CT scanners at this facility use dose modulation, iterative reconstruction, and/or weight based d osing when appropriate to reduce radiation dose to as low as reasonably achievable (ALARA). [facility]: Dose Right [facility]: CareDose [facility]: Dose Right [facility]: Teradose 4D [facility]: Smart Pictrition App RADIATION DOSE: CT Rad equipment meets quality standard of care and radiation dose reduction techniq ues were employed. CTDIvol: 17.1 mGy. DLP: 867 mGy-cm. mGy. LIMITATIONS: None. FINDINGS: LOWER CHEST: No significant findings. No nodules or infiltrates. NON-CONTRASTED LIVER, SPLEEN, ADRENALS: Evaluation limited by lack of IV contrast. No identified sign ificant masses. PANCREAS: No masses. No peripancreatic inflammatory changes. GALLBLADDER: Gallbladder wall thickening. Diffuse small stones/sludge. RIGHT KIDNEY AND URETER: Atrophic. No suspicious masses. Peripheral cysts. No significant calcifi cations. No hydronephrosis or hydroureter. LEFT KIDNEY AND URETER: Atrophic. No significant calcifications. No hydronephrosis or hydroureter . AORTA AND RETROPERITONEUM: No aneurysm. No retroperitoneal masses or adenopathy. BOWEL AND PERITONEAL CAVITY: No obvious masses or inflammatory changes. No free fluid. APPENDIX: Not visualized. PELVIS, BLADDER, AND ABDOMINAL WALL: No abnormal pelvic masses. No abdominal wall hernias. Bladder un remarkable. BONES: Diffuse degenerative disc disease. OTHER: Anasarca. IMPRESSION: Gallbladder wall thickening with multiple stones. TECHNICAL DOCUMENTATION: JOB ID: [id number] Quality ID # [id number]: Final reports with documentation of one or more dose reduction techniques (e.g., Au tomated exposure control, adjustment of the mA and/or kV according to patient size, use of iterative reconstruction technique) 2010 [employer]- All Rights Reserved Reading location - IP/workstation name: [email or web address]
[2019-06-05 12:37] LABS: HEPATITIS C VIRUS ANTIBODY <0.1 s/co ratio (0.0-0.9)
[2019-06-05 19:07] LABS: ABSOLUTE EOSINOPHILS # (AUTO) 0.2 10^3/uL (0.0-0.6); ABSOLUTE MONOCYTES (AUTO) 1.5 10^3/uL (0.1-1.4); ABSOLUTE NEUT (AUTO) 6.7 10^3/uL (1.7-8.2); BASOPHILS % (AUTO) 0.3 % (0-2); EOSINOPHILS % (AUTO) 2.3 % (0-6); HEMATOCRIT 26.8 % (36.0-47.0); HEMOGLOBIN 9.1 g/dL (12.0-15.5); LYMPHOCYTES % (AUTO) 10.2 % (13-45); MEAN CORPUSCULAR HEMOGLOBIN 32.1 pg (27.0-33.4); MEAN CORPUSCULAR HGB CONC 33.9 g/dL (32.0-36.0); MEAN CORPUSCULAR VOLUME 95 fl (80-97); MONOCYTES % (AUTO) 15.9 % (3-13); PLATELET COUNT 198 10^3/uL (150-450); RED BLOOD COUNT 2.83 10^6/uL (3.72-5.28); RED CELL DISTRIBUTION WIDTH 17.7 % (11.5-14.0); SEGMENTED NEUTROPHILS % (AUTO) 71.3 % (42-78); TOTAL CELLS COUNTED % (AUTO) 100 %; WHITE BLOOD COUNT 9.4 10^3/uL (4.0-10.5)
[2019-06-05] MEDS: OXYCODONE-ACETAMINOPHEN 5-325 MG TABLET PO PRN (19:40)
[2019-06-06] MEDS ORDERED: EPOETIN ALFA-EPBX 10,000 UNIT in SYRINGE, DISPOSABLE, 1 EACH IV PRN (05:00)
[2019-06-06] MEDS ORDERED: NORMAL SALINE 1000 ML 1,000 ML IV PRN (05:00)
[2019-06-06 05:25] LABS: HEMATOCRIT 25.7 % (36.0-47.0); HEMOGLOBIN 8.7 g/dL (12.0-15.5); MEAN CORPUSCULAR HEMOGLOBIN 31.9 pg (27.0-33.4); MEAN CORPUSCULAR HGB CONC 33.7 g/dL (32.0-36.0); MEAN CORPUSCULAR VOLUME 95 fl (80-97); PLATELET COUNT 200 10^3/uL (150-450); RED BLOOD COUNT 2.72 10^6/uL (3.72-5.28); RED CELL DISTRIBUTION WIDTH 17.3 % (11.5-14.0); WHITE BLOOD COUNT 10.5 10^3/uL (4.0-10.5)
[2019-06-06] MEDS: PANTOPRAZOLE SODIUM 40 MG TABLET.DR PO SCH ×2 (05:32→17:15)
[2019-06-06] MEDS: HYDROCODONE BIT/HOMATROPINE 5-1.5 MG TABLET PO PRN (05:32)
[2019-06-06] MEDS: LEVOTHYROXINE SODIUM 0.025 MG TABLET PO SCH (05:33)
[2019-06-06 05:47] LABS: BLOOD UREA NITROGEN 79 mg/dL (7-20); CALCIUM 9.2 mg/dL (8.4-10.2); CARBON DIOXIDE 19 mmol/L (22-30); CHLORIDE 91 mmol/L (98-107); GLUCOSE 114 mg/dL (75-110); POTASSIUM 4.2 mmol/L (3.6-5.0)
[2019-06-06 05:55] LABS: ANION GAP 22 (5-19)
[2019-06-06] MEDS: IPRATROPIUM/ALBUTEROL 0.5-2.5 MG/3 ML AMPUL NEB SCH (07:43)
[2019-06-06] MEDS: METOCLOPRAMIDE HCL 10 MG TABLET PO SCH ×3 (09:08→15:25)
[2019-06-06] MEDS: VITAMIN B COMPLEX TABLET PO SCH (09:21)
[2019-06-06] MEDS: GUAIFENESIN 600 MG TABLET.SA PO SCH (09:21)
[2019-06-06] MEDS: FLUTICASONE NASAL SPRAY 50 MCG/SPRY 120 SPRAY/16 GM NASL SCH (09:21)
[2019-06-06] MEDS: DOCUSATE SODIUM 100 MG CAPSULE PO SCH ×2 (09:21→17:16)
[2019-06-06] MEDS: FUROSEMIDE 40 MG TABLET PO SCH (09:21)
[2019-06-06] MEDS: ASPIRIN 81 MG TABLET, CHEWABLE PO SCH (09:21)
[2019-06-06] MEDS: MAGNESIUM OXIDE 400 MG TABLET PO SCH ×2 (09:21→17:16)
[2019-06-06] MEDS: LORATADINE 10 MG TABLET PO SCH (09:21)
[2019-06-06] MEDS: OXYCODONE-ACETAMINOPHEN 5-325 MG TABLET PO PRN (13:53)
[2019-06-06 14:22] LABS: HEMATOCRIT 28.8 % (36.0-47.0); HEMOGLOBIN 9.7 g/dL (12.0-15.5); MEAN CORPUSCULAR HEMOGLOBIN 31.6 pg (27.0-33.4); MEAN CORPUSCULAR HGB CONC 33.7 g/dL (32.0-36.0); MEAN CORPUSCULAR VOLUME 94 fl (80-97); PLATELET COUNT 252 10^3/uL (150-450); RED BLOOD COUNT 3.07 10^6/uL (3.72-5.28); RED CELL DISTRIBUTION WIDTH 17.5 % (11.5-14.0)
--- NOTE | 2019-06-06 14:38 | PDOC DISCHARGE SUMMARY ---
Impression - Admit/DC Date/PCP Admission Date/Primary Care Provider: 06/02/19 11:06 JUDY HINOJOSA Discharge Date: 06/06/19 - Discharge Diagnosis (1) Cholecystitis Is this a current diagnosis for this admission?: Yes (2) Acute respiratory failure with hypoxia Is this a current diagnosis for this admission?: Yes (3) COPD exacerbation Is this a current diagnosis for this admission?: Yes (4) JEWELL (obstructive sleep apnea) Is this a current diagnosis for this admission?: Yes (5) Chronic atrial fibrillation Is this a current diagnosis for this admission?: Yes (6) Elevated troponin Is this a current diagnosis for this admission?: Yes (7) End stage renal disease on dialysis Is this a current diagnosis for this admission?: Yes (8) GERD (gastroesophageal reflux disease) Is this a current diagnosis for this admission?: Yes (9) HTN (hypertension) Is this a current diagnosis for this admission?: Yes (10) Hypothyroidism Is this a current diagnosis for this admission?: Yes (11) Supratherapeutic INR Is this a current diagnosis for this admission?: Yes (12) On Coumadin for atrial fibrillation Is this a current diagnosis for this admission?: Yes (13) Anemia Is this a current diagnosis for this admission?: Yes (14) Blood per rectum Is this a current diagnosis for this admission?: Yes (15) Elevated LFTs Is this a current diagnosis for this admission?: Yes (16) Hemorrhoids Is this a current diagnosis for this admission?: Yes - Additional Information Discharge Activity: Activity As Tolerated, Balance Activity w/Rest Referrals: [facility] [Provider Group] (In 2-3 weeks for hemorrhoid banding) [facility] [Outside] (THURSDAY,THURSDAY, THURSDAY DIALYSIS) Prescriptions: Hydrocortisone Acetate [Anusol Hc 25 mg Supp.rect] 25 mg [place] BIDP PRN #10 supp.rect PRN Reason: Prednisone [Deltasone 20 mg Tablet] 60 mg PO DAILY #12 tablet Hydrocodone Bit/Homatropine [Hycodan 5-1.5 mg Tablet] 1 tab PO Q6HP PRN #20 tablet PRN Reason: Cough Oxycodone HCl/Acetaminophen [Percocet 5-325 mg Tablet] 1 tab PO Q4HP PRN #20 tablet PRN Reason: Severe Pain Azithromycin [Zithromax] 250 mg PO ASDIR PRN #6 tablet PRN Reason: Home Medications: Levothyroxine Sodium 50 mcg PO Q6AM 07/17/15 Guaifenesin [Mucinex] 1,200 mg PO Q12 12/15/16 Magnesium Oxide [Mag-Ox 400 mg Tablet] 400 mg PO BID 04/06/18 B Complex W-C No.20/Folic Acid [Renal Caps Softgel] 1 mg PO DAILY 05/30/19 Fluticasone Propionate [Flonase Nasal [place] 50 Mcg/[place] 16 gm] 1 spray NASL DAILY 05/30/19 Furosemide [Lasix 40 mg Tablet] 40 mg PO SUMOWEFR@1000 05/30/19 Loratadine [Claritin 10 mg Tablet] 10 mg PO DAILY 05/30/19 Omeprazole 20 mg PO BID 05/30/19 Acetaminophen [Tylenol 325 mg Tablet] 325 mg PO Q4HP PRN tablet 06/06/19 Azithromycin [Zithromax] 250 mg PO ASDIR PRN #6 tablet 06/06/19 Docusate Sodium [Colace 100 mg Capsule] 100 mg PO BID capsule 06/06/19 Hydrocodone Bit/Homatropine [Hycodan 5-1.5 mg Tablet] 1 tab PO Q6HP PRN #20 tablet 06/06/19 Hydrocortisone Acetate [Anusol Hc 25 mg Supp.rect] 25 mg NV BIDP PRN #10 supp.rect 06/06/19 Oxycodone HCl/Acetaminophen [Percocet 5-325 mg Tablet] 1 tab PO Q4HP PRN #20 tablet 06/06/19 Prednisone [Deltasone 20 mg Tablet] 60 mg PO DAILY #12 tablet 06/06/19 History of Present Illiness History of Present Illness: Per H&P by Dr. Barrett: BELIA CHAVEZ is a 89 year old female past medical history of of ESRD on HD Thursday//Thursday, hypothyroidism, GERD, COPD, JEWELL on CPAP, hypertension, and hyperlipidemia presenting to the ED for epigastrium/chest pain and belching. This started about 5:00 this morning. She states the burps are associated with substernal aching chest pain radiating to her back, as well as feeling gasy and has been passing gas without any pain. She denies any trouble breathing however be hypoxic and tachypneic on admission. Also stating that she has been having chills since this morning however denies any cough, abdominal pain, headache, vomiting, constipation or any diarrhea. Visual Specialist Dr. Ferreira and patient is stating that he is adherent with her dialysis and medications. She still makes a small amount of urine. In ED was noted to have elevated T bili and alkaline phosphatase and right upper quadrant ultrasound was positive for cholelithiasis with gallbladder wall thickening, concern was raised for possible acute cholecystitis, surgery was consulted and they recommended for patient to be admitted for observation and they will follow her for possible surgical intervention. Hospitalist was consulted for admission. Hospital Course Hospital Course: (1) Cholecystitis Ruled out; the patient does have cholelithiasis Elevated T bili and alkaline phosphatase. Gallbladder wall thickening on RUQ ultrasound. No significant leukocytosis. Leonardo sign negative. HIDA scan is negative. CT ABD/Pelvis revealed cholelithiasis without cholecystitis. The patient was admitted to the medical floor on continuous cardiac telemetry. She was empirically placed on IV Zosyn and IV fluids. Initially placed in n.p.o. status with surgery consultation. Patient had a HIDA scan which was normal. She was started on a clear liquid diet which was tolerated well and a dvance slowly without worsening symptoms. Surgery has signed off; do not advise surgical intervention at this time. (2) Acute respiratory failure with hypoxia Improved; patient now maintaining oxygen saturations on room air, though, with occasional rhonchi and productive cough with pleurisy. Secondary to mild COPD exacerbation. Patient is discharged home on azithromycin and prednisone. She is provided hydrocodone for cough with pleurisy. Encouraged to continue pulmonary toilet with incentive spirometer and flutter valve at home. (3) COPD exacerbation As above. (4) JEWELL (obstructive sleep apnea) Outpatient PCP and pulmonology follow-up. (5) Chronic atrial fibrillation Chronic persistent atrial fibrillation. Previously anticoagulated with Coumadin. I am recommending she discontinue Coumadin due to bleeding risk. Rate controlled without medication (no home meds). Follow-up with established explosive specialist as scheduled. (6) Elevated troponin In the setting of end-stage renal disease and A. fib. She has tenderness to palpation over the sternal area. Troponin 0.03, 0.028, 0.30. EKG no acute changes. Continue aspirin and atorvastatin. (7) End stage renal disease on dialysis Nephrology consulted; dialysis per their expertise. (8) GERD (gastroesophageal reflux disease) Daily PPI (9) HTN (hypertension) Continue home medication regiment and dialysis schedule. (10) Hypothyroidism Continue home dose levothyroxine. (11) Supratherapeutic INR Resolved. INR 3.8-> 8.3-> 2.36-> 1.44 Vit K 5 mg p.o. x1 s/p 3 units PRBC Have recommend that patient discontinue chronic anticoagulation r/t bleeding/hemorrhage risk. (12) On Coumadin for atrial fibrillation Have recommended discontinuing Coumadin. Currently on hold r/t elevated INR and ABLA (13) Anemia Stable and now trending up. Hgb 10.5-> 7.7-> 6.1-> 8.5 (s/p 2 units PRBC)-> 7.9-> 8.4-> 7.7-> 9.1 (s/p 1 unit PRBC)-> 8.7-> 9.7 Anemia panel is acceptable. ABLA r/t BRBPR; unfortunately had not been informing nursing/provider of bleeding. Presumed to be related to hemorrhoids. Pt and nursing reports no further episodes of melena or hematochezia. s/p 3 units PRBC Have discontinued Coumadin. (14) Blood per rectum Improved; no further episodes per patient. Discussed with surgery; recommend outpatient follow up for evaluation for hemorrhoid banding following discharge (and off Coumadin). Management of INR and anemia as above. (15) Elevated LFTs Now trending down. AST 33-> 25-> 321-> 335-> 118-> 67 ALT 21-> 18-> 272-> 365-> 244-> 184 LDH 521 Lipase 110 HIDA nml Repeat U/S shows gallbladder sludge/stones; no abn liver findings. Hepatitis panel negative. CT ABD/Pelvis again shows cholelithiasis without cholecystitis and no acute liver findings. (16) Hemorrhoids Anusol suppository BIDP [facility]. Physical Exam Vital Signs: Temp Pulse Resp BP Pulse Ox 99.3 F 95 20 101/55 L 94 06/06/19 08:00 06/06/19 08:00 06/06/19 08:00 06/06/19 08:00 06/06/19 08:00 Intake & Output 06/05/19 06/06/19 06/07/19 06:59 06:59 06:59 Intake Total 2360 1340 Balance 2360 1340 Weight 80.5 kg 81.7 kg General appearance: PRESENT: no acute distress, cooperative, well-developed, well-nourished Head exam: PRESENT: atraumatic, normocephalic Eye exam: PRESENT: conjunctiva pink, EOMI, PERRLA. ABSENT: scleral icterus Ear exam: PRESENT: normal external ear exam Mouth exam: PRESENT: moist, tongue midline Neck exam: ABSENT: carotid bruit, JVD, lymphadenopathy, thyromegaly Respiratory exam: PRESENT: rhonchi, symmetrical, unlabored. ABSENT: rales, wheezes Cardiovascular exam: PRESENT: RRR, +S1, +S2. ABSENT: diastolic murmur, rubs, systolic murmur Pulses: PRESENT: normal dorsalis pedis pul Vascular exam: PRESENT: normal capillary refill GI/Abdominal exam: PRESENT: normal bowel sounds, soft. ABSENT: distended, guarding, mass, organolmegaly, rebound, tenderness Rectal exam: PRESENT: deferred Extremities exam: PRESENT: full ROM. ABSENT: calf tenderness, clubbing, pedal edema Neurological exam: PRESENT: alert, awake, oriented to person, oriented to place, oriented to time, oriented to situation, CN II-XII grossly intact. ABSENT: motor sensory deficit Psychiatric exam: PRESENT: appropriate affect, normal mood. ABSENT: homicidal ideation, suicidal ideation Skin exam: PRESENT: dry, intact, warm. ABSENT: cyanosis, rash Results Laboratory Results: WBC 12.0 10^3/uL (4.0-10.5) H 06/06/19 14:00 RBC 3.07 10^6/uL (3.72-5.28) L 06/06/19 14:00 Hgb 9.7 g/dL (12.0-15.5) L 06/06/19 14:00 Hct 28.8 % (36.0-47.0) L 06/06/19 14:00 MCV 94 fl (80-97) 06/06/19 14:00 MCH 31.6 pg (27.0-33.4) 06/06/19 14:00 MCHC 33.7 g/dL (32.0-36.0) 06/06/19 14:00 RDW 17.5 % (11.5-14.0) H 06/06/19 14:00 Plt Count 252 10^3/uL (150-450) 06/06/19 14:00 Lymph % (Auto) 10.2 % (13-45) L 06/05/19 18:50 [place] % (Auto) 15.9 % (3-13) H 06/05/19 18:50 Eos % (Auto) 2.3 % (0-6) 06/05/19 18:50 Baso % (Auto) 0.3 % (0-2) 06/05/19 18:50 Reticulocyte # 0.069 10^6/uL (0.028-0.122) 06/02/19 04:35 Absolute Neuts (auto) 6.7 10^3/uL (1.7-8.2) 06/05/19 18:50 Absolute Lymphs (auto) 1.0 10^3/uL (0.5-4.7) 06/05/19 18:50 Absolute Monos (auto) 1.5 10^3/uL (0.1-1.4) H 06/05/19 18:50 Absolute Eos (auto) 0.2 10^3/uL (0.0-0.6) 06/05/19 18:50 Absolute Basos (auto) 0.0 10^3/uL (0.0-0.2) 06/05/19 18:50 Seg Neutrophils % 71.3 % (42-78) 06/05/19 18:50 Retic Count (auto) 3.56 % (0.66-2.85) H 06/02/19 04:35 Haptoglobin 213 mg/dL (41-333) 06/02/19 17:32 PT 17.6 SEC (11.4-15.4) H 06/03/19 04:10 INR 1.44 06/03/19 04:10 INR (Anticoag Therapy) Cancelled 06/02/19 04:35 Sodium 132.1 mmol/L (137-145) L 06/06/19 04:48 Potassium 4.2 mmol/L (3.6-5.0) 06/06/19 04:48 Chloride 91 mmol/L (98-107) L 06/06/19 04:48 Carbon Dioxide 19 mmol/L (22-30) L 06/06/19 04:48 Anion Gap 22 (5-19) H 06/06/19 04:48 BUN 79 mg/dL (7-20) H 06/06/19 04:48 Creatinine 6.68 mg/dL (0.52-1.25) H 06/06/19 04:48 Est GFR ( Amer) 7 (>60) L 06/06/19 04:48 Est GFR (MDRD) Non-Af 6 (>60) L 06/06/19 04:48 Glucose 114 mg/dL (75-110) H 06/06/19 04:48 Calcium 9.2 mg/dL (8.4-10.2) 06/06/19 04:48 Iron 170.1 ug/dL (37-170) H 06/02/19 04:35 TIBC 235 ug/dL (250-450) L 06/02/19 04:35 % Saturation 72 % 06/02/19 04:35 Ferritin 961.00 ng/mL (11.1-264.0) H 06/02/19 04:35 Total Bilirubin 1.4 mg/dL (0.2-1.3) H 06/05/19 04:37 Direct Bilirubin 1.3 mg/dL (0.0-0.4) H 06/05/19 04:37 Neonat Total Bilirubin Not Reportable 06/05/19 04:37 Neonat Direct Bilirubin Not Reportable 06/05/19 04:37 Neonat Indirect Bili Not Reportable 06/05/19 04:37 AST 67 U/L (14-36) H 06/05/19 04:37 ALT 184 U/L (<35) 06/05/19 04:37 Alkaline Phosphatase 81 U/L (38-126) 06/05/19 04:37 Lactate Dehydrogenase 521 U/L (120-246) H 06/02/19 17:32 Troponin I 0.030 ng/mL 05/30/19 19:01 Total Protein 5.5 g/dL (6.3-8.2) L 06/05/19 04:37 Albumin 3.4 g/dL (3.5-5.0) L 06/05/19 04:37 Lipase 110.6 U/L (23-300) 05/30/19 09:32 Vitamin B12 801.0 pg/mL (239-931) 06/02/19 04:35 Folate > 20.00 ng/mL (>2.76) 06/02/19 04:35 Urine Color YELLOW 05/30/19 10:33 Urine Appearance SLIGHTLY-CLOUDY 05/30/19 10:33 Urine pH 5.0 (5.0-9.0) 05/30/19 10:33 Ur Specific [place] 1.021 05/30/19 10:33 Urine Protein 100 mg/dL (NEGATIVE) H 05/30/19 10:33 Urine Glucose (UA) NEGATIVE mg/dL (NEGATIVE) 05/30/19 10:33 Urine Ketones NEGATIVE mg/dL (NEGATIVE) 05/30/19 10:33 Urine Blood NEGATIVE (NEGATIVE) 05/30/19 10:33 Urine Nitrite NEGATIVE (NEGATIVE) 05/30/19 10:33 Urine Bilirubin MODERATE (NEGATIVE) H 05/30/19 10:33 Urine Urobilinogen NEGATIVE mg/dL (<2.0) 05/30/19 10:33 Ur Leukocyte Esterase MODERATE (NEGATIVE) H 05/30/19 10:33 Urine WBC (Auto) 34 /HPF 05/30/19 10:33 Urine RBC (Auto) 3 /HPF 05/30/19 10:33 Urine WBC Clumps FEW /HPF 05/30/19 10:33 Urine Mucus (Auto) RARE /LPF 05/30/19 10:33 Urine Ascorbic Acid NEGATIVE (NEGATIVE) 05/30/19 10:33 Stool Occult Blood POSITIVE (NEGATIVE) 06/03/19 18:12 Stl C. Difficile GDH Ag NEGATIVE (NEGATIVE) 06/04/19 17:15 Stl C.difficile Tox A&B NEGATIVE (NEGATIVE) 06/04/19 17:15 Hepatitis A IgM Ab Negative (Negative) 06/03/19 14:10 Hep Bs Antigen Negative (Negative) 06/03/19 14:10 Hep B Core IgM Ab Negative (Negative) 06/03/19 14:10 Hepatitis C Antibody <0.1 s/co ratio (0.0-0.9) 06/03/19 14:10 Blood Type O NEGATIVE 06/05/19 09:28 Blood Type Confirm O NEGATIVE 06/02/19 06:33 Antibody Screen NEGATIVE 06/05/19 09:28 Crossmatch See Detail 06/05/19 09:28 05/30/19 05/30/19 05/30/19 09:32 13:30 19:01 Troponin I 0.030 0.028 0.030 Impressions: Chest X-Ray 05/30/19 09:44 IMPRESSION: Mild congestive heart failure. Left pleural effusion. Abdomen Ultrasound 05/30/19 11:29 IMPRESSION: Cholelithiasis. Gallbladder wall thickening may indicate cholecystitis. Hepatobiliary Scan Nuclear Medicine 05/31/19 00:00 IMPRESSION: NORMAL STUDY WITHOUT CYSTIC OR COMMON DUCT OBSTRUCTION. Abdomen Ultrasound 06/03/19 00:00 IMPRESSION: LIMITED STUDY. STONES AND SLUDGE IN THE GALLBLADDER. DIFFUSE GALLBLADDER WALL THICKENING. Abdomen/Pelvis CT 06/05/19 00:00 IMPRESSION: Gallbladder wall thickening with multiple stones. Plan Plan of Treatment: The patient is discharged home in the care of family members; she declines home health services. She is advised to follow-up with her primary care provider within 1 week. She should keep her current dialysis schedule. Follow-up with [facility] in 2 to 4 weeks for evaluation for hemorrhoidal banding. Follow-up with established explosive specialist as scheduled. Of note, the patient has been instructed to discontinue her Coumadin due to bleeding risk. She is advised to take her other medications as prescribed. Return to the emergency department as needed for concerning symptoms. Time Spent: Greater than 30 Minutes Stroke Is this a Stroke Patient?: No Acute Heart Failure - Is this a Heart Failure Patient?: No
[2019-06-06 15:45] VITALS: BP 107/52
--- NOTE | 2019-06-06 18:02 | PDOC PROGRESS REPORT ---
Subjective Progress Note for:: 06/06/19 Subjective:: I am seeing the patient during dialysis this morning. She did not complain in any abdominal pain nor nausea nor vomiting this morning. She denies any shortness of breath. Her blood pressure is relatively low but she always runs low especially during dialysis treatment. She was tolerating dialysis although she was a little bit anxious or restless. Reason For Visit: ACUTE CHOLECYSTITIS,UTI,ESRD Physical Exam Vital Signs: Temp Pulse Resp BP Pulse Ox 99.3 F 95 20 101/55 L 94 06/06/19 08:00 06/06/19 08:00 06/06/19 08:00 06/06/19 08:00 06/06/19 08:00 Intake & Output 06/05/19 06/06/19 06/07/19 06:59 06:59 06:59 Intake Total 2360 1340 Balance 2360 1340 Weight 80.5 kg 81.7 kg Vitals during dialysis: Blood pressure 101/44, heart rate of 78, blood flow rate of 350 mL/min and dialysate flow rate of 800 mL/min. Exam: General appearance: PRESENT: no acute distress, cooperative, well-developed, well-nourished Head exam: PRESENT: atraumatic, normocephalic Eye exam: PRESENT: conjunctiva slightly pale, PERRLA. ABSENT: scleral icterus Neck exam: ABSENT: JVD Respiratory exam: PRESENT: Slightly coarse breath sounds. ABSENT: crackles, rales, rhonchi, unlabored, wheezes Cardiovascular exam: PRESENT: Regular rate rhythm -+S1, +S2. Grade 2/6 systolic murmur GI/Abdominal exam: PRESENT: normal bowel sounds, soft. ABSENT: guarding, mass, tenderness Extremities exam: Grade 2 bilateral lower extremity pitting edema Neurological exam: PRESENT: alert, awake, oriented to person, place and time. Skin exam: PRESENT: dry, warm, Cardiovascular exam: PRESENT: irregular rhythm, +S1, +S2 GI/Abdominal exam: PRESENT: normal bowel sounds, soft. ABSENT: organomegaly, tenderness Results Laboratory Results: 06/06/19 04:48 06/06/19 04:48 06/05/19 06/05/19 06/06/19 09:28 18:50 04:48 WBC 9.4 10.5 RBC 2.83 L 2.72 L Hgb 9.1 L 8.7 L Hct 26.8 L 25.7 L MCV 95 95 MCH 32.1 31.9 MCHC 33.9 33.7 RDW 17.7 H 17.3 H Plt Count 198 200 Seg Neutrophils % 71.3 Sodium Potassium Chloride Carbon Dioxide Anion Gap BUN Creatinine Est GFR ( Amer) Glucose Calcium Blood Type O NEGATIVE Antibody Screen NEGATIVE 06/06/19 04:48 WBC RBC Hgb Hct MCV MCH MCHC RDW Plt Count Seg Neutrophils % Sodium 132.1 L Potassium 4.2 Chloride 91 L Carbon Dioxide 19 L Anion Gap 22 H BUN 79 H Creatinine 6.68 H Est GFR ( Amer) 7 L Glucose 114 H Calcium 9.2 Blood Type Antibody Screen 05/30/19 05/30/19 05/30/19 09:32 13:30 19:01 Troponin I 0.030 0.028 0.030 Impressions: Chest X-Ray 05/30/19 09:44 IMPRESSION: Mild congestive heart failure. Left pleural effusion. Hepatobiliary Scan Nuclear Medicine 05/31/19 00:00 IMPRESSION: NORMAL STUDY WITHOUT CYSTIC OR COMMON DUCT OBSTRUCTION. Abdomen Ultrasound 06/03/19 00:00 IMPRESSION: LIMITED STUDY. STONES AND SLUDGE IN THE GALLBLADDER. DIFFUSE GALLBLADDER WALL THICKENING. Abdomen/Pelvis CT 06/05/19 00:00 IMPRESSION: Gallbladder wall thickening with multiple stones. Assessment & Plan - Diagnosis (1) End stage renal disease on dialysis Is this a current diagnosis for this admission?: Yes Plan: We will do dialysis today for 3 hours, using the patient's AV fistula, with 2 potassium bath, blood flow rate of 350 mL per minute, dialysate flow rate of 800 mL per minute, ultrafiltration 1.5 L as tolerated, no heparin and Procrit with 10,000 units during dialysis intravenously. Ultrafiltration will be adjusted according to patient's blood pressure since his been relatively low. Patient will be monitored closely during dialysis treatment. (2) Cholelithiasis Is this a current diagnosis for this admission?: Yes Plan: Patient had extensive work-up including a negative HIDA scan, CT scan of the abdomen and abdominal ultrasound which showed gallbladder stones without any evidence of cholecystitis. Surgery did not recommend any surgical intervention. Patient's abdominal pain has resolved. (3) Elevated LFTs Is this a current diagnosis for this admission?: Yes Plan: Patient has elevated AST and bilirubin during the last few days during this admission but is currently trending down and improving. Her alk phos and ALT has been normal. Her Lipitor was discontinued last Thursday. (4) Hypotension Is this a current diagnosis for this admission?: Yes Plan: Patient's baseline blood pressure has been 90s over 40s so this is nothing new to her. (5) Anemia in chronic kidney disease (CKD) Is this a current diagnosis for this admission?: Yes Plan: Patient will be given Retacrit. (6) Hyponatremia Is this a current diagnosis for this admission?: Yes Plan: Mild likely secondary to some fluid retention. (7) Metabolic acidosis Is this a current diagnosis for this admission?: Yes Plan: Likely attributed to ESRD. (8) COPD exacerbation Is this a current diagnosis for this admission?: Yes Plan: Hospitalist managing. (9) Hemorrhoids with complication Is this a current diagnosis for this admission?: Yes (10) On Coumadin for atrial fibrillation Is this a current diagnosis for this admission?: Yes Plan: INR improved today. - Notes Notes: From nephrology standpoint patient is clinically stable to be discharged home. Once discharge patient is to continue her usual scheduled dialysis treatment at [facility]. - Time Time with patient: 15-25 minutes
[2019-06-06] MEDS ORDERED: SODIUM CHLORIDE NASAL SPRAY 44 ML NASL SCH (22:00)
== END 2019-06-06 18:16 | disposition home or self-care (01) | DRG 813 ==
LOC: ER 08:52 → EH 15:54 → 5 17:05 → OBSVTOIN 06-02 11:06
PROVIDERS: ADMIT Internal Medicine; ATTEND Internal Medicine
PROC: 5A1D70Z Performance of Urinary Filtration, Intermittent, Less than 6 Hours Per Day (ICD-10-PCS; principal; 2019-05-31)
PROC: 30233N1 Transfusion of Nonautologous Red Blood Cells into Peripheral Vein, Percutaneous Approach (ICD-10-PCS; 2019-06-02)
PROC: 5A1D70Z Performance of Urinary Filtration, Intermittent, Less than 6 Hours Per Day (ICD-10-PCS; 2019-06-04)
PROC: 5A1D70Z Performance of Urinary Filtration, Intermittent, Less than 6 Hours Per Day (ICD-10-PCS; 2019-06-06)
DX: D68.32 Hemorrhagic disorder due to extrinsic circulating anticoagulants (principal); N18.6 End stage renal disease; J96.01 Acute respiratory failure with hypoxia; D62 Acute posthemorrhagic anemia; I48.19 Other persistent atrial fibrillation; J44.1 Chronic obstructive pulmonary disease with (acute) exacerbation; I13.2 Hypertensive heart and chronic kidney disease with heart failure and with stage 5 chronic kidney disease, or end stage renal disease; E87.1 Hypo-osmolality and hyponatremia; E87.2 Acidosis; K64.8 Other hemorrhoids; K21.9 Gastro-esophageal reflux disease without esophagitis; E03.9 Hypothyroidism, unspecified; G47.33 Obstructive sleep apnea (adult) (pediatric); E78.5 Hyperlipidemia, unspecified; K80.20 Calculus of gallbladder without cholecystitis without obstruction; I50.9 Heart failure, unspecified; T45.515A Adverse effect of anticoagulants, initial encounter; I27.20 Pulmonary hypertension, unspecified; R79.89 Other specified abnormal findings of blood chemistry; Z87.891 Personal history of nicotine dependence; Z79.01 Long term (current) use of anticoagulants; Z99.2 Dependence on renal dialysis; Z82.49 Family history of ischemic heart disease and other diseases of the circulatory system; Z79.890 Hormone replacement therapy; Z79.899 Other long term (current) drug therapy
CPT/HCPCS: 36415; 36430; 71045; 74176; 76705; 78226; 80048; 80053; 80074; 80076; 81001; 82272; 82607; 82728; 82746; 83010; 83540; 83550; 83615; 83690; 84484; 85025; 85027; 85045; 85610; 86850; 86900; 86901; 86920; 87040; 87086; 87324; 87449; 93005; 93010; 94640; 94660; 99285; A9537; G0378; J2543; J2920; J3490; J7030; J7042; J7050; J7512; J7620; P9016; Q5105; Q9969

== ENCOUNTER → 2019-07-23 | Emergency (ER) | payer MEDICARE ==
[~2019-07-23] MED LIST: DEXTROSE 5%-1/2 NORMAL SALINE 500 ML IV ONE; ONDANSETRON HCL INJ/PF 4 MG/2 ML SDV IV ONE
[2019-07-23 14:37] LABS: ABSOLUTE BASOPHILS # (AUTO) 0.1 10^3/uL (0.0-0.2); ABSOLUTE EOSINOPHILS # (AUTO) 0.1 10^3/uL (0.0-0.6); ABSOLUTE LYMPHOCYTES (AUTO) 1.4 10^3/uL (0.5-4.7); ABSOLUTE MONOCYTES (AUTO) 0.6 10^3/uL (0.1-1.4); ABSOLUTE NEUT (AUTO) 7.4 10^3/uL (1.7-8.2); BASOPHILS % (AUTO) 1.4 % (0-2); EOSINOPHILS % (AUTO) 0.8 % (0-6); HEMATOCRIT 35.9 % (36.0-47.0); LYMPHOCYTES % (AUTO) 14.9 % (13-45); MEAN CORPUSCULAR HEMOGLOBIN 31.2 pg (27.0-33.4); MEAN CORPUSCULAR HGB CONC 33.5 g/dL (32.0-36.0); MEAN CORPUSCULAR VOLUME 93 fl (80-97); MONOCYTES % (AUTO) 6.5 % (3-13); PLATELET COUNT 348 10^3/uL (150-450); RED BLOOD COUNT 3.85 10^6/uL (3.72-5.28); RED CELL DISTRIBUTION WIDTH 17.7 % (11.5-14.0); SEGMENTED NEUTROPHILS % (AUTO) 76.4 % (42-78); TOTAL CELLS COUNTED % (AUTO) 100 %; WHITE BLOOD COUNT 9.6 10^3/uL (4.0-10.5)
[2019-07-23 14:40] LABS: ALBUMIN 4.5 g/dL (3.5-5.0); ALKALINE PHOSPHATASE 138 U/L (38-126); ANION GAP 19 (5-19); ASPARTATE AMINO TRANSFERASE 39 U/L (14-36); BILIRUBIN,DIRECT 0.9 mg/dL (0.0-0.4); BILIRUBIN,TOTAL 1.2 mg/dL (0.2-1.3); BLOOD UREA NITROGEN 11 mg/dL (7-20); CALCIUM 8.7 mg/dL (8.4-10.2); CARBON DIOXIDE 26 mmol/L (22-30); CHLORIDE 98 mmol/L (98-107); POTASSIUM 3.6 mmol/L (3.6-5.0); TOTAL PROTEIN 7.7 g/dL (6.3-8.2)
[2019-07-23 14:41] LABS: GLUCOSE 63 mg/dL (75-110)
--- NOTE | 2019-07-23 15:01 | ER Document Report ---
ED GI/ - General Chief Complaint: Vomiting Stated Complaint: VOMITING Time Seen by Provider: 07/23/19 14:02 Primary Care Provider: SUDHAKAR ALEMAN FNP-C [Primary Care Provider] - Follow up as needed Notes: HPI: Patient is an 89-year-old female with extensive past medical history as recorded who presents today stating for 1 week she has not been able to tolerate any fluids or food. She states she immediately vomits after eating or drinking. No history of esophageal strictures or esophageal dilations. No history of esophageal foreign bodies. This did not start immediately after eating any substances. Patient has a history of a hysterectomy. She denies any other abdominal history. She actually denies any and all abdominal pain. She denies nausea. She denies chest pain or shortness of breath. Patient is a dialysis patient and did go to dialysis today. Patient was seen here in May and discharged on June 06. At that time she had some vomiting with some epigastric discomfort. She was found to have cholelithiasis with a thickened gallbladder. HIDA scan was negative. Patient was admitted and followed by surgery with a CT scan of the abdomen and pelvis. They decided that it was not cholecystitis. Patient also had a slightly low hemoglobin, elevated bilirubin, and elevated liver enzymes. Her Coumadin was discontinued. She followed up with gastroenterology for hemorrhoids which were thought to be the etiology of the hemoglobin. ROS: See HPI All other review of systems reviewed and otherwise negative Reviewed vital signs and nursing note as charted by RN. PHYSICAL EXAM: CONSTITUTIONAL: Alert and oriented and responds appropriately to questions. Well-appearing; well-nourished HEAD: Normocephalic; atraumatic EYES: Sclerae non-icteric ENT: Normal nose; no rhinorrhea; moist mucous membranes; pharynx without lesions noted NECK: Supple without meningismus; non-tender; no cervical lymphadenopathy, no masses CARD: Regular rate and rhythm; no murmurs; symmetric distal pulses RESP: Normal chest excursion without splinting or tachypnea; breath sounds clear and equal bilaterally; no wheezes, no rhonchi, no rales ABD/GI: Normal bowel sounds; non-distended; soft, no focal tenderness to deep palpation of all 4 quadrants of the abdomen; no palpable organomegaly or masses BACK: The back appears normal and is non-tender to palpation EXT: Normal ROM in all joints; non-tender to palpation; no edema SKIN: No acute lesions noted NEURO: CN 2-12 intact; 5/5 bilateral upper and lower extremity strength with sensation intact to light touch PSYCH: The patient's mood and manner are appropriate. Grooming and personal hygiene are appropriate. TRAVEL OUTSIDE OF THE [place] 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 Denies: Hx Peritoneal Dialysis GI Medical History: Reports: Hx Gastroesophageal Reflux Disease Musculoskeletal Medical History: Reports Hx Arthritis, Denies Hx Multiple Sclerosis Psychiatric Medical History: Denies: Hx Dementia, Hx Depression Past Surgical History: Reports: Hx Hysterectomy, Hx Orthopedic Surgery - bunion. Denies: Hx Pacemaker - Immunizations Hx Diphtheria, Pertussis, Tetanus Vaccination: Yes Hx Pneumococcal Vaccination: 08/03/15 Physical Exam - Vital signs Vitals: Resp Pulse Ox 19 92 07/23/19 14:00 07/23/19 14:00 Course - Re-evaluation Re-evalutation: Given the above history and physical, we will obtain basic labs, liver panel and lipase, catheterized urine analysis, EKG and troponin. I will also obtain a CT scan of the abdomen and pelvis without contrast to evaluate the etiology of this nonpainful/no nausea vomiting. 07/23/19 15:01 Labs initially as recorded. Patient still denies any pain. 07/23/19 16:05 Patient's hemoglobin is much improved from previous visit as is the patient's creatinine and liver panel. Troponin as recorded. Patient does have a history of a chronically elevated troponin. We will order a repeat 3-hour troponin. 07/23/19 19:47 Repeat troponin as recorded. Patient denies any chest pain. Patient still not able to tolerate fluids. I do believe gastroparesis to be unlikely given the lack of diabetes. We do not have any box office agent here to perform an endoscopy. Patient still denies any neck or chest pain. I do believe that the patient will require transfer. I have called and spoken to an outside facility was accepted the patient for transfer. - Vital Signs Vital signs: Temp Pulse Resp BP Pulse Ox 97.5 F 26 H 94/42 L 100 07/23/19 14:07 07/23/19 16:01 07/23/19 16:01 07/23/19 16:01 - Laboratory Result Diagrams: 07/23/19 14:04 07/23/19 14:04 Laboratory results interpreted by me: 07/23/19 07/23/19 14:04 14:04 Hct 35.9 L RDW 17.7 H Creatinine 3.36 H Est GFR ( Amer) 16 L Est GFR (MDRD) Non-Af 13 L Glucose 63 L Direct Bilirubin 0.9 H AST 39 H Alkaline Phosphatase 138 H Discharge - Discharge Clinical Impression: Vomiting alone Condition: Fair Disposition: [facility] Referrals: SUDHAKAR ALEMAN FNP-C [Primary Care Provider] - Follow up as needed
--- NOTE | 2019-07-23 15:29 | RADIOLOGY REPORT (SQ) ---
EXAM DESCRIPTION: CT ABD/PELVIS NO ORAL OR IV COMPLETED DATE/TIME: 07/23/2019 3:06 pm REASON FOR STUDY: 19; dialysis; vomiting; normal labs . Prior hysterectomy. COMPARISON: CT abdomen and pelvis 06/05/2019. Right upper quadrant ultrasound 06/03/2019. TECHNIQUE: CT scan of the abdomen and pelvis performed without intravenous or oral contrast. Images reviewed with lung, soft tissue, and bone windows. Reconstructed coronal and sagittal MPR images revi ewed. All images stored on PACS. All CT scanners at this facility use dose modulation, iterative reconstruction, and/or weight based d osing when appropriate to reduce radiation dose to as low as reasonably achievable (ALARA). [facility]: Dose Right [facility]: CareDose [facility]: Dose Right [facility]: Teradose 4D [facility]: DosYogures RADIATION DOSE: CT Rad equipment meets quality standard of care and radiation dose reduction techniq ues were employed. CTDIvol: 9.9 mGy. DLP: 513 mGy-cm.mGy. LIMITATIONS: None. FINDINGS: LOWER CHEST: No consolidation. Trace right pleural effusion. There is a 13 mm radiopaqu e density at the distal esophagus. NON-CONTRASTED LIVER, SPLEEN, ADRENALS: Evaluation limited by lack of IV contrast. There is a 1.8 x 1.1 cm low-density nodule at the left adrenal gland, suggestive of an adenoma. PANCREAS: No peripancreatic inflammatory changes. GALLBLADDER: Hyperdensity at the gallbladder, probably corresponding to previously described stones. RIGHT KIDNEY AND URETER: Assessment for masses limited by lack of IV contrast. There is cortical atr ophy at the right kidney. A 1.4 cm fluid attenuation lesion at the right kidney, suggestive of a cys t. No significant calcifications. No hydronephrosis or hydroureter. LEFT KIDNEY AND URETER: Assessment for masses limited by lack of IV contrast. There is cortical atro phy of the left kidney No significant calcifications. No hydronephrosis or hydroureter. AORTA AND RETROPERITONEUM: Atherosclerotic calcifications within the abdominal aorta and its branches . No abdominal aortic aneurysm. No retroperitoneal masses or hemorrhage. BOWEL AND PERITONEAL CAVITY: No dilated bowel loops to suggest obstruction. No free fluid or free ai r. There is colonic diverticulosis with no CT evidence for acute diverticulitis. APPENDIX: Not visualized. PELVIS, BLADDER, AND ABDOMINAL WALL:The uterus is surgically absent. No free fluid. Bladder decompres sed. BONES: Multilevel degenerative changes at the spine. IMPRESSION: 1. No acute findings in the abdomen or pelvis on unenhanced CT. 2. Cholelithiasis. 3. Colonic diverticulosis. 4. Trace right pleural effusion. 5. 1.3 cm radiopaque density at the distal esophagus, may correspond to an ingested tablet. Please c orrelate for esophageal dysmotility. COMMENT: Quality ID # [id number]: Final reports with documentation of one or more dose reduction techniques (e.g., Automated exposure control, adjustment of the mA and/or kV according to patient size, use of iterative reconstruction technique) TECHNICAL DOCUMENTATION: JOB ID: [id number] [employer]- All Rights Reserved Reading location - IP/workstation name: [email or web address]
--- NOTE | 2019-07-23 21:23 | EKG REPORT ---
SEVERITY:- ABNORMAL ECG - ATRIAL FIBRILLATION, V-RATE 60-83 NONSPECIFIC T ABNORMALITIES, DIFFUSE LEADS PROLONGED QT INTERVAL : Confirmed by: Poornima Portillo MD 23-Jul-2019 21:23:01
--- NOTE | 2019-07-23 21:34 | ER Document Report ---
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 This MD went to the bedside just prior to patient being transferred. Patient is alert and oriented x3 speaks in full sentences, shows no signs of respiratory or other acute distress and understands plan that she is being transferred to another facility for higher level of care and treatment of her emergent condition that brought her to the ER today.
[2019-07-23 21:44] VITALS: BP 114/61
== END | disposition short-term general hospital (02) ==
LOC: ER 13:50
DX: R11.10 Vomiting, unspecified (principal); R10.13 Epigastric pain; I50.9 Heart failure, unspecified; I25.2 Old myocardial infarction; I11.0 Hypertensive heart disease with heart failure
CPT/HCPCS: 36415; 74176; 80053; 82962; 83690; 84484; 85025; 93005; 93010; 96361; 96374; 99285; J2405; J7070